=== PATIENT | female | born 1945 | race Caucasian/White ===

== ENCOUNTER 2018-02-10 05:39 | Inpatient (IN) | payer MEDICARE, BC ==
[~2018-02-10 05:39] MED LIST: Acetaminophen 500 MG Tab PO ONE; Scopolamine 1.5 MG Transdermal Patch TRDERM ONE
[2018-02-10] MEDS: Dextrose 5%-Lactated Ringers 1,000 ML IV SCH ×3 (06:06→20:48)
[2018-02-10] MEDS ORDERED: Propofol 200 MG/20 ML SDV ONE (07:11)
[2018-02-10] MEDS ORDERED: Ondansetron 4 MG/2 ML SDV ONE (07:11)
[2018-02-10] MEDS ORDERED: Succinylcholine 200 MG/10 ML MDV ONE (07:11)
[2018-02-10] MEDS ORDERED: Neostigmine Methylsulfate 1 MG/ML 5 ML Syringe ONE (07:11)
[2018-02-10] MEDS ORDERED: Rocuronium 50 MG/5 ML Vial ONE (07:11)
[2018-02-10] MEDS ORDERED: Glycopyrrolate 0.2 MG/ML 5 ML MDV ONE (07:11)
[2018-02-10] MEDS ORDERED: Dexamethasone 4 MG/ML SDV ONE (07:11)
[2018-02-10] MEDS ORDERED: fentaNYL 250 MCG/5 ML SDV ONE (07:12)
[2018-02-10] MEDS ORDERED: cefOXitin 2 GM in Sodium Chloride 0.9% 50 ML IV ONE (07:15)
[2018-02-10] MEDS ORDERED: Ketamine 500 MG/5 ML MDV IV SCH (07:30)
[2018-02-10] MEDS ORDERED: Ropivacaine 36 ML, Dexamethasone 8 MG, EPINEPHrine 0.4 MG, Sodium Chloride 0.9% 41.6 ML NERVRT SCH ×4 (07:30)
[2018-02-10] MEDS ORDERED: Naloxone 0.4 MG/ML SDV IV PRN (09:39)
[2018-02-10] MEDS ORDERED: HYDROmorphone/Normal Saline 15 MG/30 ML PCA IV PRN (09:39)
[2018-02-10] MEDS: Pantoprazole 40 MG Vial IV SCH (12:23)
[2018-02-10] MEDS: Ondansetron 4 MG/2 ML SDV IVPUSH PRN ×2 (12:42→16:25)
[2018-02-10] MEDS: cefOXitin 2 GM in Sodium Chloride 0.9% 50 ML IV SCH ×2 (13:35→20:51)
[2018-02-10] MEDS: Metoclopramide 10 MG/2 ML SDV IVPUSH SCH (17:40)
[2018-02-10] MEDS: Acetaminophen/HYDROcodone 325-5 MG Tab PO PRN (17:42)
[2018-02-10] MEDS: Simvastatin 20 MG Tab PO SCH (20:53)
[2018-02-11] MEDS: Acetaminophen/HYDROcodone 325-5 MG Tab PO PRN ×6 (00:03→18:54)
[2018-02-11] MEDS: Metoclopramide 10 MG/2 ML SDV IVPUSH SCH ×5 (00:04→22:56)
[2018-02-11] MEDS: cefOXitin 2 GM in Sodium Chloride 0.9% 50 ML IV SCH ×4 (02:41→19:32)
[2018-02-11] MEDS: Dextrose 5%-Lactated Ringers 1,000 ML IV SCH ×2 (07:43→18:34)
[2018-02-11] MEDS: Aspirin 81 MG Tab.EC PO SCH (08:51)
[2018-02-11] MEDS: Clopidogrel 75 MG Tab PO SCH (08:51)
[2018-02-11] MEDS: Pantoprazole 40 MG Vial IV SCH (11:05)
--- NOTE | 2018-02-11 15:55 | PCM.SURGPN ---
- General Info Date of Service: 02/11/18 Date of Surgery/Procedure: 02/10/18 POD#: 1 Functional Status: Reports: Pain Controlled, Ambulating, Urinating - Review of Systems General: Reports: Fever HEENT: Reports: No Symptoms Pulmonary: Reports: No Symptoms Cardiovascular: Reports: No Symptoms Gastrointestinal: Reports: Abdominal Pain, Nausea (Pt states that her pain is a 2-3/10 with the oral norco. Pt states pain is along whole lower abdomen. Pt states reglan and zofran helped her nausea. ) - Patient Data Vitals - Most Recent: Last Vital Signs Temp 37.3 C 02/11/18 15:00 Pulse 83 02/11/18 15:00 Resp 16 02/11/18 15:00 BP 107/62 02/11/18 15:00 Pulse Ox 95 02/11/18 15:00 Weight - Most Recent: 63.049 kg I&O - Last 24 Hours: Intake & Output 02/11/18 02/11/18 02/11/18 06:59 14:59 22:59 Intake Total 820 220 Output Total 20 1000 Balance 800 -780 Lab Results Last 24 Hrs: Laboratory Results - last 24 hr 02/11/18 02/11/18 Range/Units 04:00 04:00 WBC 17.1 H (4.5-11.0) K/uL RBC 4.05 (3.30-5.50) M/uL Hgb 12.1 (12.0-15.0) g/dL Hct 37.2 (36.0-48.0) % MCV 92 (80-98) fL MCH 30 (27-31) pg MCHC 33 (32-36) % Plt Count 232 (150-400) K/uL Neut % (Auto) 84 H (36-66) % Lymph % (Auto) 6 L (24-44) % [place] % (Auto) 10 H (2-6) % Eos % (Auto) 0 L (2-4) % Baso % (Auto) 0 (0-1) % Total Bilirubin 0.5 (0.2-1.0) mg/dL Alkaline Phosphatase 71 (46-116) U/L Med Orders - Current: Current Medications Hydrocodone Bitart/Acetaminophen ([place] 325-5 Mg) 1 tab PO Q3H PRN PRN Reason: PAIN Last Admin: 02/11/18 12:32 Dose: 1 tab Aspirin (Halfprin) 81 mg PO DAILY [facility] Last Admin: 02/11/18 08:51 Dose: 81 mg Clopidogrel Bisulfate (Plavix) 75 mg PO DAILY [facility] Last Admin: 02/11/18 08:51 Dose: 75 mg Dextrose/Lactated Ringer's (Dextrose 5%-Lactated Ringers) 1,000 mls @ 100 mls/ hr IV ASDIRECTED [facility] Last Admin: 02/11/18 07:43 Dose: 100 mls/hr Cefoxitin Sodium 2 gm/ Sodium (Chloride) 50 mls @ 100 mls/hr IV Q6H [facility] Last Admin: 02/11/18 13:19 Dose: 100 mls/hr Metoclopramide HCl (Reglan) 10 mg IVPUSH Q6H [facility] Last Admin: 02/11/18 11:05 Dose: 10 mg Naloxone HCl (Narcan) 0.1 mg IV ASDIRECTED PRN PRN Reason: decreased respiratory rate Ondansetron HCl (Zofran) 4 mg IVPUSH Q4H PRN PRN Reason: NAUSEA Last Admin: 02/10/18 16:25 Dose: 4 mg Pantoprazole Sodium (Protonix Iv) 40 mg IV Q24H [facility] Last Admin: 02/11/18 11:05 Dose: 40 mg Simvastatin (Zocor) 40 mg PO BEDTIME [facility] Last Admin: 02/10/18 20:53 Dose: 40 mg Discontinued Medications Acetaminophen (Tylenol Extra Strength) 1,000 mg PO ONETIME ONE Stop: 02/10/18 05:31 Last Admin: 02/10/18 06:06 Dose: 1,000 mg Ropivacaine 36 ml/Dexamethasone 8 mg/Epinephrine HCl 0.4 mg/ Sodium Chloride 41.6 ml 0 ml NERVRT ASDIRECTED [facility] Last Admin: 02/10/18 07:56 Dose: 80 syringe Dexamethasone (Dexamethasone) Confirm Administered Dose 4 mg .ROUTE .STK-MED ONE Stop: 02/10/18 07:12 Fentanyl (Sublimaze) Confirm Administered Dose 250 mcg .ROUTE .STK-MED ONE Stop: 02/10/18 07:13 Glycopyrrolate (Robinul) Confirm Administered Dose 1 mg .ROUTE .STK-MED ONE Stop: 02/10/18 07:12 Hydromorphone HCl (Dilaudid Decatizer 15 Mg In Ns 30 Ml) 0 mg IV ASDIRECTED PRN; Protocol PRN Reason: PATIENT RELATIONS REPRESENTATIVE PAIN CONTROL Last Admin: 02/10/18 12:42 Dose: 15 mg Cefoxitin Sodium 2 gm/ Sodium (Chloride) 50 mls @ 100 mls/hr IV ONETIME ONE Stop: 02/10/18 07:44 Last Admin: 02/10/18 07:33 Dose: 100 mls/hr Ketamine HCl (Ketalar) 30 mg IV ASDIRECTED JESS Neostigmine Methylsulfate (Neostigmine) Confirm Administered Dose 5 mg .ROUTE .STK-MED ONE Stop: 02/10/18 07:12 Ondansetron HCl (Zofran) Confirm Administered Dose 4 mg .ROUTE .STK-MED ONE Stop: 02/10/18 07:12 Propofol (Diprivan 20 Ml) Confirm Administered Dose 200 mg .ROUTE .STK-MED ONE Stop: 02/10/18 07:12 Rocuronium [place] (Zemuron) Confirm Administered Dose 50 mg .ROUTE .STK-MED ONE Stop: 02/10/18 07:12 Scopolamine (Transderm-Scop) 1.5 mg TRDERM ONETIME ONE Stop: 02/10/18 05:31 Last Admin: 02/10/18 06:05 Dose: 1.5 mg Succinylcholine Chloride (Quelicin) Confirm Administered Dose 200 mg .ROUTE .STK -MED ONE Stop: 02/10/18 07:12 - Exam General: Alert, Oriented, Cooperative, No Acute Distress Lungs: Clear to Auscultation, Normal Respiratory Effort Cardiovascular: Regular Rate, Regular Rhythm, No Murmurs GI/Abdominal Exam: Tender Skin: Warm, Dry Psy/Mental Status: Alert, Normal Affect, Normal Mood (Pt is AO X3 and pleasant. Pt is up sitting in her chair.) - Problem List & Annotations (1) Status post laparoscopic appendectomy SNOMED Code(s): 263422255, 82946536, 267758567, 410784596 Code(s): Z90.49 - ACQUIRED ABSENCE OF OTHER SPECIFIED PARTS OF DIGESTIVE TRACT Status: Acute Current Visit: Yes (2) Status post laparoscopic cholecystectomy SNOMED Code(s): 185437730, 65472632, 582520283 Code(s): Z90.49 - ACQUIRED ABSENCE OF OTHER SPECIFIED PARTS OF DIGESTIVE TRACT Status: Acute Current Visit: Yes - Problem List Review Problem List Initiated/Reviewed/Updated: Yes - My Orders Last 24 Hours: Active Orders 24 hr Category Date Time Status Aspirin [Halfprin] Med 02/11/18 09:00 Active 81 mg PO DAILY Clopidogrel [Plavix] Med 02/11/18 09:00 Active 75 mg PO DAILY Metoclopramide [Reglan] Med 02/10/18 17:30 Active 10 mg IVPUSH Q6H Simvastatin [Zocor] Med 02/10/18 21:00 Active 40 mg PO BEDTIME Oral Care [OM.PC] BID Oth 02/11/18 10:45 Ordered Oral Care [OM.PC] BID Oth 02/12/18 10:45 Ordered Oral Care [OM.PC] BID Oth 02/13/18 10:45 Ordered Oral Care [OM.PC] BID Oth 02/14/18 10:45 Ordered Oral Care [OM.PC] BID Oth 02/15/18 10:45 Ordered Oral Care [OM.PC] BID Oth 02/16/18 10:45 Ordered Oral Care [OM.PC] BID Oth 02/17/18 10:45 Ordered Oral Care [OM.PC] BID Oth 02/18/18 10:45 Ordered Oral Care [OM.PC] BID Oth 02/19/18 10:45 Ordered Medication Orders Hydrocodone Bitart/Acetaminophen ([place] 325-5 Mg) 1 tab PO Q3H PRN PRN Reason: PAIN Last Admin: 02/11/18 12:32 Dose: 1 tab Admin: 02/11/18 09:31 Dose: 1 tab Admin: 02/11/18 06:27 Dose: 1 tab Admin: 02/11/18 00:03 Dose: 1 tab Admin: 02/10/18 17:42 Dose: 1 tab Aspirin (Halfprin) 81 mg PO DAILY [facility] Last Admin: 02/11/18 08:51 Dose: 81 mg Clopidogrel Bisulfate (Plavix) 75 mg PO DAILY [facility] Last Admin: 02/11/18 08:51 Dose: 75 mg Dextrose/Lactated Ringer's (Dextrose 5%-Lactated Ringers) 1,000 mls @ 100 mls/ hr IV ASDIRECTED [facility] Last Admin: 02/11/18 07:43 Dose: 100 mls/hr Infusion: 02/11/18 06:48 Dose: 100 mls/hr Admin: 02/10/18 20:48 Dose: 100 mls/hr Infusion: 02/10/18 20:48 Dose: 100 mls/hr Admin: 02/10/18 12:27 Dose: 100 mls/hr Infusion: 02/10/18 12:27 Dose: 100 mls/hr Admin: 02/10/18 06:06 Dose: 100 mls/hr Cefoxitin Sodium 2 gm/ Sodium (Chloride) 50 mls @ 100 mls/hr IV Q6H [facility] Last Admin: 02/11/18 13:19 Dose: 100 mls/hr Admin: 02/11/18 07:44 Dose: 100 mls/hr Admin: 02/11/18 02:41 Dose: 100 mls/hr Admin: 02/10/18 20:51 Dose: 100 mls/hr Admin: 02/10/18 13:35 Dose: 100 mls/hr Metoclopramide HCl (Reglan) 10 mg IVPUSH Q6H [facility] Last Admin: 02/11/18 11:05 Dose: 10 mg Admin: 02/11/18 06:08 Dose: 10 mg Admin: 02/11/18 00:04 Dose: 10 mg Admin: 02/10/18 17:40 Dose: 10 mg Naloxone HCl (Narcan) 0.1 mg IV ASDIRECTED PRN PRN Reason: decreased respiratory rate Ondansetron HCl (Zofran) 4 mg IVPUSH Q4H PRN PRN Reason: NAUSEA Last Admin: 02/10/18 16:25 Dose: 4 mg Admin: 02/10/18 12:42 Dose: 4 mg Pantoprazole Sodium (Protonix Iv) 40 mg IV Q24H [facility] Last Admin: 02/11/18 11:05 Dose: 40 mg Admin: 02/10/18 12:23 Dose: 40 mg Simvastatin (Zocor) 40 mg PO BEDTIME [facility] Last Admin: 02/10/18 20:53 Dose: 40 mg - Assessment Assessment (Free Text/Narrative):: -Abdominal pain -Post op laparoscopic appendectomy -post op laparoscopic cholecystectomy - Plan Plan (Free Text/Narrative):: -continue reglan and zofran as needed for nausea -continue oral norco -Pt may start regular diet -continue to empty drains as needed
[2018-02-11] MEDS ORDERED: Bisacodyl 5 MG Tab PO PRN (21:00)
[2018-02-11] MEDS ORDERED: Docusate Sodium 100 MG Cap PO ONE (21:00)
[2018-02-11] MEDS: Simvastatin 20 MG Tab PO SCH (21:29)
[2018-02-12] MEDS: Acetaminophen/HYDROcodone 325-5 MG Tab PO PRN ×3 (00:42→07:37)
[2018-02-12] MEDS: cefOXitin 2 GM in Sodium Chloride 0.9% 50 ML IV SCH ×2 (02:43→08:18)
[2018-02-12] MEDS: Metoclopramide 10 MG/2 ML SDV IVPUSH SCH (05:29)
[2018-02-12] MEDS: Aspirin 81 MG Tab.EC PO SCH (08:24)
[2018-02-12] MEDS: Clopidogrel 75 MG Tab PO SCH (08:24)
[2018-02-12 09:37] VITALS: BP 119/79
--- NOTE | 2018-02-12 14:06 | PCM.DCSUM1 ---
Discharge Summary - Hospital Course HPI Initial Comments: Pt admitted 02/10/2018 for laparoscopic cholecystectomy due to abdominal pain Brief History: Pt was admitted 02/10/2018 for a laparoscopic cholecystectomy for abdominal pain. She was having low abdominal pain as well and also underwent an appendectomy during her surgery. Pt has been doing well during her hospital stay with us. Post op day 1 pt had some nausea that was helped by zofran and reglan. Pt has been up ambulating and has good oral intake on a regular diet. Pt has not needed the zofran and reglan again since post op day 1. Pts FREEDOM tubes put out 80 mls each (160 ml total) yesterday the fluid was slightly bloody but almost serosanguineous fluid. Pt still has some diffuse low abdominal pain but states this is well controlled with one norco every three hours. will remove drains today and pt can shower and be discharged. - Discharge Data Discharge Date: 02/12/18 Discharge Disposition: Home, Self-Care 01 Condition: Good - Discharge Diagnosis/Problem(s) (1) Status post laparoscopic appendectomy SNOMED Code(s): 270342824, 45222247, 379652395, 643971789 ICD Code: Z90.49 - ACQUIRED ABSENCE OF OTHER SPECIFIED PARTS OF DIGESTIVE TRACT Status: Acute (2) Status post laparoscopic cholecystectomy SNOMED Code(s): 571713239, 91660965, 492293052 ICD Code: Z90.49 - ACQUIRED ABSENCE OF OTHER SPECIFIED PARTS OF DIGESTIVE TRACT Status: Acute - Patient Summary/Data Consults: Consultations 02/10/18 10:38 Respiratory Care Assess and Treatment [CONS] Routine Comment: Physician Instructions: - Patient Instructions Diet: Usual Diet as Tolerated, Drink 8-10+ Glasses/Day Activity: No Lifting Over 10 Pounds Driving: Do Not Drive Showering/Bathing: May Shower Wound/Incision Care: Keep Operative Site/Wound Site Clean and Dry Notify Provider of: Fever, Increased Pain, Nausea and/or Vomiting Other/Special Instructions: Use incentive inspirometer 10 times every hour while awake for 1 weeks. - Discharge Plan Prescriptions/Med Rec: Acetaminophen/HYDROcodone [[place] 325-5 MG] 1 tab PO Q3H PRN #40 tablet PRN Reason: PAIN Magnesium Hydroxide [Milk of Magnesia] 30 ml PO DAILY PRN #2 ml PRN Reason: Constipation Ondansetron [Zofran ODT] 4 mg PO Q6H PRN #30 tab.dis PRN Reason: Nausea Home Medications: Home Meds Aspirin [Adult Low Dose Aspirin EC] 81 mg PO DAILY 12/15/13 [History] Cholecalciferol (Vitamin D3) [Vitamin D3] 2,000 unit PO DAILY 12/15/13 [History] Clopidogrel [Plavix] 75 mg PO DAILY 06/18/16 [History] Cranberry Extract [Theracran] 4,200 mg PO DAILY 06/18/16 [History] Nitroglycerin [Nitrostat] 0.4 mg SL ASDIRECTED PRN 06/18/16 [History] Tumeric 538 mg PO DAILY 06/18/16 [History] Ubidecarenone [Co Q-10] 400 mg PO DAILY 06/18/16 [History] Acetaminophen/HYDROcodone [[place] 325-5 MG] 1 tab PO Q3H PRN #40 tablet 02/12/18 [Rx] Magnesium Hydroxide [Milk of Magnesia] 30 ml PO DAILY PRN #2 ml 02/12/18 [Rx] Ondansetron [Zofran ODT] 4 mg PO Q6H PRN #30 tab.dis 02/12/18 [Rx] Patient Handouts: Preventing Constipation After Surgery Referrals: Alexandra Onofre PA-C [Physician Marketing Ambassador] - 02/20/18 10:00 am - General Info Functional Status: Reports: Pain Controlled, Tolerating Diet, Ambulating, Urinating - Review of Systems General: Reports: No Symptoms HEENT: Reports: No Symptoms Pulmonary: Reports: No Symptoms, Sputum Gastrointestinal: Reports: Abdominal Pain (pt still has some diffuse low abdominal pain. tender with palpation) Skin: Reports: No Symptoms - Patient Data Vitals - Most Recent: Last Vital Signs Temp 37.3 C 02/12/18 09:34 Pulse 83 02/12/18 09:34 Resp 16 02/12/18 09:34 BP 119/79 02/12/18 09:34 Pulse Ox 96 02/12/18 09:34 Weight - Most Recent: 63.049 kg I&O - Last 24 hours: Intake & Output 02/11/18 02/12/18 02/12/18 22:59 06:59 14:59 Intake Total 1388 1460 488 Output Total 1650 870 865 Balance -262 590 -377 Med Orders - Current: Current Medications Discontinued Medications Acetaminophen (Tylenol Extra Strength) 1,000 mg PO ONETIME ONE Stop: 02/10/18 05:31 Last Admin: 02/10/18 06:06 Dose: 1,000 mg Hydrocodone Bitart/Acetaminophen ([place] 325-5 Mg) 1 tab PO Q3H PRN PRN Reason: PAIN Last Admin: 02/12/18 07:37 Dose: 1 tab Aspirin (Halfprin) 81 mg PO DAILY [facility] Last Admin: 02/12/18 08:24 Dose: 81 mg Bisacodyl (Dulcolax) 10 mg PO BID PRN PRN Reason: Constipation Clopidogrel Bisulfate (Plavix) 75 mg PO DAILY [facility] Last Admin: 02/12/18 08:24 Dose: 75 mg Ropivacaine 36 ml/Dexamethasone 8 mg/Epinephrine HCl 0.4 mg/ Sodium Chloride 41.6 ml 0 ml NERVRT ASDIRECTED [facility] Last Admin: 02/10/18 07:56 Dose: 80 syringe Dexamethasone (Dexamethasone) Confirm Administered Dose 4 mg .ROUTE .STK-MED ONE Stop: 02/10/18 07:12 Docusate Sodium (Colace) 200 mg PO ONETIME ONE Stop: 02/11/18 21:01 Last Admin: 02/11/18 21:29 Dose: 200 mg Fentanyl (Sublimaze) Confirm Administered Dose 250 mcg .ROUTE .STK-MED ONE Stop: 02/10/18 07:13 Glycopyrrolate (Robinul) Confirm Administered Dose 1 mg .ROUTE .STK-MED ONE Stop: 02/10/18 07:12 Hydromorphone HCl (Dilaudid Cryptographic Technician 15 Mg In Ns 30 Ml) 0 mg IV ASDIRECTED PRN; Protocol PRN Reason: OPERATIONS STAFF SPECIALIST SECURITY PAIN CONTROL Last Admin: 02/10/18 12:42 Dose: 15 mg Cefoxitin Sodium 2 gm/ Sodium (Chloride) 50 mls @ 100 mls/hr IV ONETIME ONE Stop: 02/10/18 07:44 Last Admin: 02/10/18 07:33 Dose: 100 mls/hr Dextrose/Lactated Ringer's (Dextrose 5%-Lactated Ringers) 1,000 mls @ 100 mls/ hr IV ASDIRECTED [facility] Last Admin: 02/11/18 18:34 Dose: 100 mls/hr Cefoxitin Sodium 2 gm/ Sodium (Chloride) 50 mls @ 100 mls/hr IV Q6H [facility] Last Admin: 02/12/18 08:18 Dose: 100 mls/hr Ketamine HCl (Ketalar) 30 mg IV ASDIRECTED JESS Metoclopramide HCl (Reglan) 10 mg IVPUSH Q6H [facility] Last Admin: 02/12/18 05:29 Dose: Not Given Naloxone HCl (Narcan) 0.1 mg IV ASDIRECTED PRN PRN Reason: decreased respiratory rate Neostigmine Methylsulfate (Neostigmine) Confirm Administered Dose 5 mg .ROUTE .STK-MED ONE Stop: 02/10/18 07:12 Ondansetron HCl (Zofran) Confirm Administered Dose 4 mg .ROUTE .STK-MED ONE Stop: 02/10/18 07:12 Ondansetron HCl (Zofran) 4 mg IVPUSH Q4H PRN PRN Reason: NAUSEA Last Admin: 02/10/18 16:25 Dose: 4 mg Pantoprazole Sodium (Protonix Iv) 40 mg IV Q24H [facility] Last Admin: 02/11/18 11:05 Dose: 40 mg Propofol (Diprivan 20 Ml) Confirm Administered Dose 200 mg .ROUTE .STK-MED ONE Stop: 02/10/18 07:12 Rocuronium [place] (Zemuron) Confirm Administered Dose 50 mg .ROUTE .STK-MED ONE Stop: 02/10/18 07:12 Scopolamine (Transderm-Scop) 1.5 mg TRDERM ONETIME ONE Stop: 02/10/18 05:31 Last Admin: 02/10/18 06:05 Dose: 1.5 mg Simvastatin (Zocor) 40 mg PO BEDTIME [facility] Last Admin: 02/11/18 21:29 Dose: 40 mg Succinylcholine Chloride (Quelicin) Confirm Administered Dose 200 mg .ROUTE .STK -MED ONE Stop: 02/10/18 07:12 - Exam General: Reports: Alert, Oriented, Cooperative, No Acute Distress HEENT: Reports: Pupils Equal, EOMI Lungs: Reports: Clear to Auscultation, Normal Respiratory Effort Cardiovascular: Reports: Regular Rate, No Murmurs GI/Abdominal Exam: Soft, Tender Skin: Reports: Warm, Dry Wound/Incisions: Reports: Healing Well, Dressing Dry and Intact, No Drainage Psy/Mental Status: Reports: Alert, Normal Affect, Normal Mood (Pt is AO x3 and laying down in bed. incisions are healing well with no erythema or drainage, fluid in FREEDOM looks almost serosanguineous. Pt has some tenderness with palpation but abdomen is soft.) Discharge Operative/Procedures - Procedures Performed Operations: laparoscopic cholecystectomy and appendectomy
--- NOTE | 2018-02-16 13:14 | OR ---
DATE OF PROCEDURE: 02/10/2018 PREOPERATIVE DIAGNOSES: 1. Chronic cholecystitis and cholelithiasis. 2. Right lower quadrant pain. POSTOPERATIVE DIAGNOSES: 1. Chronic cholecystitis and cholelithiasis. 2. 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 OPERATIVE PROCEDURES: Diagnostic laparoscopy with: 1. Cholecystectomy (92507). 2. Appendectomy (64313). ANESTHESIA: General. HEALTH PROMOTION MANAGER: AICHA Gonzalez. INDICATIONS FOR PROCEDURE: This is a 72-year-old presenting with abdominal pain. For the most part, the pain is located across the lower half of the abdomen and by history is somewhat suggestive of being somewhat of a functional-type pain typical for something like irritable bowel syndrome. She does have her focus of the pain in the right lower quadrant as well as some upper abdominal pain and as a part of workup, the patient underwent an ultrasound which showed cholelithiasis and a distinctly positive ultrasound, Ding's sign, i.e., the gallbladder was quite tender. The plan is to proceed with a laparoscopic cholecystectomy. We will also evaluate the pelvis and lower abdomen on the right side to the extent possible. The patient does have a long midline incision and we would expect to be quite a bit in the way of adhesions in that area, so visualization laparoscopically may not be 100% conclusive in terms of the findings. The patient is aware of this and otherwise potential risks of the procedure including bleeding, infection, injury to underlying viscera, problems with stones migrating into the common bile duct causing a need for additional interventions for correction were all gone over and the patient wishes to proceed. DETAILS OF PROCEDURE: The patient was taken to the operating room, after general endotracheal anesthesia was induced, the abdomen was prepped and draped. In the right lateral abdomen, a transverse incision was made. The peritoneal cavity entered under direct vision with an Optiview trocar and inflated to 15 mmHg with CO2. Laparoscope was reinserted. No underlying trocar insertion site injuries were seen. The patient was noted to have a long area of adhesions between the omentum and small bowel and the midline incision extending from the epigastrium down to somewhat below the umbilicus. The area somewhat below the umbilicus was free of adhesions, so the flexible laparoscope was able to be manipulated towards the left side and a mid abdominal transversus abdominis plane block was placed on the left side with good visualization of the needle at the correct level and the right side was also able to be placed in a similar manner. Following this, now 12-mm epigastric trocar was placed. This was placed towards the area of the gallbladder avoiding the midline adhesions and eventually 2 additional 5-mm trocars were placed in the right abdomen. Attention was initially taken to the cholecystectomy, the gallbladder as expected was somewhat edematous and almost had a subacute inflammatory appearance. This was retracted anteriorly and laterally and dissection began on the gallbladder with Harmonic scalpel, continued around the gallbladder neck and cystic duct junction. Once that area was well delineated as well as was the adjacent cystic artery, both structures were clipped 3 times proximally and once distally and divided. The gallbladder dissected off the gallbladder bed using Harmonic scalpel and was noted to contain a multitude of small black stones within it. The area above the cholecystectomy was inspected. No bleeding or bile leaks were seen. Attention was then taken to evaluation of the pelvis. 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 There were no areas of bowel inflammation located in that area. As one identified the base of the appendix as we came off the cecum, this appeared to be quite fixed to the retroperitoneum and this fixation appeared to be somewhat pathologic in terms of the amount of scarring around it consistent with possible previous appendicitis, which had gone otherwise untreated. The appendix was then divided flush with the cecum with a ROBERT rayo load and using Harmonic scalpel dissection, the appendix was gradually divided away from the mesoappendix as it was dissected out of the retroperitoneum and delivered from the field. At that point, no further problems were noted. The appendiceal stump as well as mesoappendix was reinforced with some fibrin sealant and no other problems were noted in the abdomen at this point. Fabrizio-Muñoz drain was taken out of the right upper quadrant trocar site, also placed adjacent to the gallbladder bed as there was quite a bit of edema in that area, and the 12-mm trocars were then removed and the fascia was sequentially closed with 0 Vicryl stitch and the skin at the incisions with 4-0 Vicryl skin stitch. Dressing was applied. The patient was taken to the recovery room in satisfactory condition. There were no evident complications. John Lambert MD /[id number]
== END 2018-02-12 10:46 | disposition home or self-care (01) | DRG 419 ==
LOC: JP.SDSSCHI 05:39 → JP.SDS 05:39 → EDSTATUS 09:30 → JP.MS 09:30
PROVIDERS: ADMIT Surgery; ATTEND Surgery
PROC: 0FT44ZZ Resection of Gallbladder, Percutaneous Endoscopic Approach (ICD-10-PCS; principal; 2018-02-10)
PROC: 0DTJ4ZZ Resection of Appendix, Percutaneous Endoscopic Approach (ICD-10-PCS; 2018-02-10)
PROC: 3E0T3BZ Introduction of Anesthetic Agent into Peripheral Nerves and Plexi, Percutaneous Approach (ICD-10-PCS; 2018-02-10)
DX: K80.10 Calculus of gallbladder with chronic cholecystitis without obstruction (principal); K38.8 Other specified diseases of appendix; I25.10 Atherosclerotic heart disease of native coronary artery without angina pectoris; K21.9 Gastro-esophageal reflux disease without esophagitis; E78.2 Mixed hyperlipidemia; G47.33 Obstructive sleep apnea (adult) (pediatric); M81.0 Age-related osteoporosis without current pathological fracture; I34.1 Nonrheumatic mitral (valve) prolapse; R11.0 Nausea; Z79.02 Long term (current) use of antithrombotics/antiplatelets; Z79.82 Long term (current) use of aspirin; Z90.710 Acquired absence of both cervix and uterus; Z88.2 Allergy status to sulfonamides; Z88.8 Allergy status to other drugs, medicaments and biological substances; Z95.5 Presence of coronary angioplasty implant and graft; Z88.1 Allergy status to other antibiotic agents; Z91.040 Latex allergy status; Z79.899 Other long term (current) drug therapy
CPT/HCPCS: 36415; 82247; 84075; 85025; 88302; 88304; 94762; A9270-GY; C9113; J0171; J0330; J0694; J1100; J1170; J2405; J2704; J2710; J2765; J2795; J3010; J7042; J7050

== ENCOUNTER 2019-07-03 12:31 | Emergency (ER) | payer MEDICARE, BC ==
[2019-07-03 13:05] VITALS: BP 132/75
--- NOTE | 2019-07-03 13:13 | EDM.PDOC ---
ED HPI GENERAL MEDICAL PROBLEM - General Chief Complaint: Genitourinary Problem Time Seen by Provider: 07/03/19 13:10 Source of Information: Reports: Patient, RN Notes Reviewed History Limitations: Reports: No Limitations - History of Present Illness INITIAL COMMENTS - FREE TEXT/NARRATIVE: 73-year-old female presents emergency department today complaint of abdominal pain, she has a history of chronic abdominal pain with a diagnosis being elusive thus far.. C states over the last 24 hours she feels more weak has abdominal pain low in the pelvic area she is concerned about a urinary tract infection but does not have any urinary tract symptomatology Lower Abdomen Pain Score (Numeric/FACES): 7 - Related Data Allergies Allergy/AdvReac Type Severity Reaction Status Date / Time Latex, Natural Rubber Allergy Rash Verified 07/03/19 12:52 niacin Allergy Cannot Verified 07/03/19 12:52 Remember Sulfa (Sulfonamide Allergy Difficulty Verified 07/03/19 12:52 Antibiotics) Breathing ciprofloxacin AdvReac Nausea Verified 07/03/19 12:52 meperidine HCl [From Demerol] AdvReac Nausea and Verified 07/03/19 12:52 Vomiting nitrofurantoin AdvReac Nausea Verified 07/03/19 12:52 [From Macrobid] nitrofurantoin AdvReac Nausea Verified 07/03/19 12:52 macrocrystalline [From Macrobid] tetracycline [Tetracycline] AdvReac Nausea Verified 07/03/19 12:52 Home Meds: Home Meds Clopidogrel [Plavix] 75 mg PO DAILY 06/18/16 [History] Nitroglycerin [Nitrostat] 0.4 mg SL ASDIRECTED PRN 06/18/16 [History] Tumeric 538 mg PO DAILY 06/18/16 [History] Simvastatin 5 mg PO DAILY 07/03/19 [History] Past Medical History HEENT History: Reports: Impaired Vision Cardiovascular History: Reports: Angina, Arrhythmia, CAD, High Cholesterol, Stents, Other (See Below) Other Cardiovascular History: mitro valve prolaps Respiratory History: Reports: Sleep Apnea Gastrointestinal History: Reports: Colon Polyp, GERD, Hiatal Hernia 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: Musculoskeletal History: Reports: Fracture Other Musculoskeletal History: right knee pain and swellling Neurological History: Reports: Concussion Endocrine/Metabolic History: Reports: Osteoporosis - Past Surgical History Head Surgeries/Procedures: Reports: None HEENT Surgical History: Reports: Other (See Below) Other HEENT Surgeries/Procedures: nasal surgery for sleep apnea Cardiovascular Surgical History: Reports: Coronary Artery Stent Respiratory Surgical History: Reports: None GI Surgical History: Reports: Appendectomy, Cholecystectomy, Colonoscopy, EGD, Other (See Below) Other GI Surgeries/Procedures: abd. surgery for stomach on ride side of body Female Surgical History: Reports: Hysterectomy, Salpingo-Oophorectomy Endocrine Surgical History: Reports: None Neurological Surgical History: Reports: None Musculoskeletal Surgical History: Reports: None Dermatological Surgical History: Reports: None Social & Family History - Tobacco Use Smoking Status *Q: Never Smoker Second Hand Smoke Exposure: No - Caffeine Use Caffeine Use: Reports: Coffee - Recreational Drug Use Recreational Drug Use: No ED ROS GENERAL - Review of Systems Review Of Systems: See Below Constitutional: Reports: Weakness. Denies: Fever, Chills Respiratory: Reports: No Symptoms Cardiovascular: Reports: No Symptoms GI/Abdominal: Reports: Abdominal Pain, Nausea. Denies: Vomiting : Denies: Discharge, Dysuria, Flank Pain, Frequency ED EXAM, GI/ABD - Physical Exam Exam: See Below Exam Limited By: No Limitations General Appearance: Alert, WD/WN, No Apparent Distress Respiratory/Chest: No Respiratory Distress, Lungs Clear, Normal Breath Sounds, No Accessory Muscle Use, Chest Non-Tender Cardiovascular: Regular Rate, Rhythm, No Murmur GI/Abdominal Exam: Normal Bowel Sounds, Soft, Non-Tender, No Distention, No Mass Course - Vital Signs Last Recorded V/S: Last Vital Signs Temp 96.9 F 07/03/19 12:54 Pulse 71 07/03/19 12:54 Resp 16 07/03/19 12:54 BP 132/75 07/03/19 12:54 Pulse Ox 96 07/03/19 12:54 - Orders/Labs/Meds Orders: Active Orders 24 hr Category Date Time Status CULTURE URINE [RM] Urgent Lab 07/03/19 13:57 Ordered cefTRIAXone 1 GM,Lidocaine 1% 2.1 ML Med 07/03/19 14:04 Ordered cefTRIAXone [Rocephin] 1 gm Lidocaine 1% [Xylocaine-MPF 1%] 2.1 ml IM ONETIME Medication Orders Ceftriaxone Sodium 1 gm/ (Lidocaine HCl 2.1 ml) 0 gm IM ONETIME ONE Stop: 07/03/19 14:05 Labs: Laboratory Tests 07/03/19 07/03/19 07/03/19 Range/Units 13:13 13:20 13:20 WBC 7.4 (4.5-11.0) K/uL RBC 4.28 (3.30-5.50) M/uL Hgb 12.9 (12.0-15.0) g/dL Hct 40.5 (36.0-48.0) % MCV 95 (80-98) fL MCH 30 (27-31) pg MCHC 32 (32-36) % Plt Count 274 (150-400) K/uL Neut % (Auto) 60 (36-66) % Lymph % (Auto) 24 (24-44) % [place] % (Auto) 12 H (2-6) % Eos % (Auto) 3 (2-4) % Baso % (Auto) 1 (0-1) % Sodium 140 (140-148) mmol/L Potassium 3.5 L (3.6-5.2) mmol/L Chloride 103 (100-108) mmol/L Carbon Dioxide 28 (21-32) mmol/L Anion Gap 12.5 (5.0-14.0) mmol/L BUN 16 (7-18) mg/dL Creatinine 0.8 (0.6-1.0) mg/dL Est Cr Clr Drug Dosing 54.89 mL/min Estimated GFR (MDRD) > 60 (>60) Glucose 97 (74-106) mg/dL Lactic Acid (0.4-2.0) mmol/L Calcium 8.8 (8.5-10.1) mg/dL Total Bilirubin 0.4 (0.2-1.0) mg/dL AST 20 (15-37) U/L ALT 24 (12-78) U/L Alkaline Phosphatase 111 (46-116) U/L Total Protein 6.7 (6.4-8.2) g/dL Albumin 3.5 (3.4-5.0) g/dL Globulin 3.2 (2.3-3.5) g/dL Albumin/Globulin Ratio 1.1 L (1.2-2.2) Urine Color Yellow (YELLOW) Urine Appearance Cloudy A (CLEAR) Urine pH 7.0 (5.0-8.0) Ur Specific [place] 1.025 (1.008-1.030) Urine Protein Negative (NEGATIVE) mg/dL Urine Glucose (UA) Normal (NEGATIVE) mg/dL Urine Ketones Negative (NEGATIVE) mg/dL Urine Occult Blood Trace-intact H (NEGATIVE) Urine Nitrite Positive H (NEGATIVE) Urine Bilirubin Negative (NEGATIVE) Urine Urobilinogen 0.2 (0.2-1.0) EU/dL Ur Leukocyte Esterase Negative (NEGATIVE) Urine RBC 0-5 (0-5) Urine WBC 0-5 (0-5) Ur Epithelial Cells Few Amorphous Sediment Few Urine Bacteria Many Urine Mucus Not seen 07/03/19 Range/Units 13:20 WBC (4.5-11.0) K/uL RBC (3.30-5.50) M/uL Hgb (12.0-15.0) g/dL Hct (36.0-48.0) % MCV (80-98) fL MCH (27-31) pg MCHC (32-36) % Plt Count (150-400) K/uL Neut % (Auto) (36-66) % Lymph % (Auto) (24-44) % [place] % (Auto) (2-6) % Eos % (Auto) (2-4) % Baso % (Auto) (0-1) % Sodium (140-148) mmol/L Potassium (3.6-5.2) mmol/L Chloride (100-108) mmol/L Carbon Dioxide (21-32) mmol/L Anion Gap (5.0-14.0) mmol/L BUN (7-18) mg/dL Creatinine (0.6-1.0) mg/dL Est Cr Clr Drug Dosing mL/min Estimated GFR (MDRD) (>60) Glucose (74-106) mg/dL Lactic Acid 1.4 (0.4-2.0) mmol/L Calcium (8.5-10.1) mg/dL Total Bilirubin (0.2-1.0) mg/dL AST (15-37) U/L ALT (12-78) U/L Alkaline Phosphatase (46-116) U/L Total Protein (6.4-8.2) g/dL Albumin (3.4-5.0) g/dL Globulin (2.3-3.5) g/dL Albumin/Globulin Ratio (1.2-2.2) Urine Color (YELLOW) Urine Appearance (CLEAR) Urine pH (5.0-8.0) Ur Specific [place] (1.008-1.030) Urine Protein (NEGATIVE) mg/dL Urine Glucose (UA) (NEGATIVE) mg/dL Urine Ketones (NEGATIVE) mg/dL Urine Occult Blood (NEGATIVE) Urine Nitrite (NEGATIVE) Urine Bilirubin (NEGATIVE) Urine Urobilinogen (0.2-1.0) EU/dL Ur Leukocyte Esterase (NEGATIVE) Urine RBC (0-5) Urine WBC (0-5) Ur Epithelial Cells Amorphous Sediment Urine Bacteria Urine Mucus Meds: Medications Generic Name Dose Route Start Last Admin Trade Name Freq PRN Reason Stop Dose Admin Ceftriaxone Sodium 1 gm/ 0 gm 07/03/19 14:04 Lidocaine HCl 2.1 ml IM 07/03/19 14:05 ONETIME ONE Departure - Departure Time of Disposition: 14:06 Disposition: Home, Self-Care 01 Condition: Fair Clinical Impression: UTI, Urinary tract infectious disease - Discharge Information Referrals: Aaron Sahu MD [Primary Care Provider] - Forms: ED Department Discharge Additional Instructions: Please followup with your primary care provider in 3-5 days if not better, please call return to the emergency department with worsening of symptoms. The urinary culture should be done in 4-5 days to reveal sensitivity to antibiotics - My Orders Last 24 Hours: My Active Orders 07/03/19 13:57 CULTURE URINE [RM] Urgent 07/03/19 14:04 cefTRIAXone 1 GM,Lidocaine 1% 2.1 ML cefTRIAXone [Rocephin] 1 gm Lidocaine 1% [ Xylocaine-MPF 1%] 2.1 ml IM ONETIME - Assessment/Plan Last 24 Hours: My Active Orders 07/03/19 13:57 CULTURE URINE [RM] Urgent 07/03/19 14:04 cefTRIAXone 1 GM,Lidocaine 1% 2.1 ML cefTRIAXone [Rocephin] 1 gm Lidocaine 1% [ Xylocaine-MPF 1%] 2.1 ml IM ONETIME Plan: Assessment Acuity = acute Site and laterality = urinary tract infection Etiology = suspicious for bacterial cause Manifestations = weakness Location of injury = Home Lab values = CBC, CMP, lactic acid out within normal limits urinalysis is positive for nitrates with packed RBCs and many bacteria cultures pending Plan Because of her multiple allergy profile and what has worked well for her in the past like to treat with Rocephin 1 g IM 100 follow-up with her primary care 3- 5 days if no improvement This note was dictated using [employer] recognition software please call with any questions on syntax or grammar.
[2019-07-03] MEDS ORDERED: cefTRIAXone 1 GM, Lidocaine 1% 2.1 ML IM ONE ×2 (14:04)
== END 2019-07-03 14:19 | disposition home or self-care (01) ==
LOC: JP.ED 12:31
DX: N39.0 Urinary tract infection, site not specified (principal); E78.00 Pure hypercholesterolemia, unspecified; I25.10 Atherosclerotic heart disease of native coronary artery without angina pectoris; K21.9 Gastro-esophageal reflux disease without esophagitis; Z79.899 Other long term (current) drug therapy; Z88.1 Allergy status to other antibiotic agents; Z88.8 Allergy status to other drugs, medicaments and biological substances; Z88.2 Allergy status to sulfonamides; Z88.5 Allergy status to narcotic agent
CPT/HCPCS: 36415; 80053; 81001; 83605; 85025; 87086; 87088; 87186; 96372; 99284; J0696; J2001

== ENCOUNTER 2019-07-09 08:22 | Emergency (ER) | payer MEDICARE, BC ==
[2019-07-09] MEDS ORDERED: Sodium Chloride 0.9% 10 ML Syringe FLUSH PRN (08:57)
[2019-07-09] MEDS ORDERED: Ondansetron 4 MG/2 ML SDV IVPUSH ONE (08:58)
[2019-07-09] MEDS ORDERED: fentaNYL 100 MCG/2 ML SDV IVPUSH ONE (08:58)
[2019-07-09] MEDS ORDERED: Lactated Ringers 1,000 ML IV SCH (09:00)
--- NOTE | 2019-07-09 09:03 | EDM.PDOC ---
ED HPI GENERAL MEDICAL PROBLEM - General Chief Complaint: Gastrointestinal Problem Stated Complaint: PAIN IN BACK STOMACH Time Seen by Provider: 07/09/19 08:53 Source of Information: Reports: Patient, Family, Old Records, RN Notes Reviewed History Limitations: Reports: No Limitations - History of Present Illness INITIAL COMMENTS - FREE TEXT/NARRATIVE: 73-year-old female presents to the emergency department today complaint of abdominal pain and loose watery stools. She was recently treated for urinary tract infection 6 days prior with 1 g of Rocephin she does have multiple antibiotic allergies, urine culture grew out Citrobacter freundii sensitive to cephalosporins.. She does have a history of chronic abdominal pain for the last 2 years however over the last 24 hours it has gotten significantly worse loose watery stools and nausea no fevers Flank Pain Score (Numeric/FACES): 10 - Related Data Allergies Allergy/AdvReac Type Severity Reaction Status Date / Time Latex, Natural Rubber Allergy Rash Verified 07/03/19 12:52 niacin Allergy Cannot Verified 07/03/19 12:52 Remember Sulfa (Sulfonamide Allergy Difficulty Verified 07/03/19 12:52 Antibiotics) Breathing ciprofloxacin AdvReac Nausea Verified 07/03/19 12:52 meperidine HCl [From Demerol] AdvReac Nausea and Verified 07/03/19 12:52 Vomiting nitrofurantoin AdvReac Nausea Verified 07/03/19 12:52 [From Macrobid] nitrofurantoin AdvReac Nausea Verified 07/03/19 12:52 macrocrystalline [From Macrobid] tetracycline [Tetracycline] AdvReac Nausea Verified 07/03/19 12:52 Home Meds: Home Meds Clopidogrel [Plavix] 75 mg PO DAILY 06/18/16 [History] Nitroglycerin [Nitrostat] 0.4 mg SL ASDIRECTED PRN 06/18/16 [History] Tumeric 538 mg PO DAILY 06/18/16 [History] Simvastatin 5 mg PO DAILY 07/03/19 [History] Hydrocodone/Acetaminophen [Hydrocodon-Acetaminophen 5-325] 1 each PO TID PRN # 10 tablet 07/09/19 [Rx] Vancomycin HCl 125 mg PO QID #40 capsule 07/09/19 [Rx] Past Medical History HEENT History: Reports: Impaired Vision Cardiovascular History: Reports: Angina, Arrhythmia, CAD, High Cholesterol, Stents, Other (See Below) Other Cardiovascular History: mitro valve prolaps Respiratory History: Reports: Sleep Apnea Gastrointestinal History: Reports: Colon Polyp, GERD, Hiatal Hernia 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: Musculoskeletal History: Reports: Fracture Other Musculoskeletal History: right knee pain and swellling Neurological History: Reports: Concussion Endocrine/Metabolic History: Reports: Osteoporosis Hematologic History: Reports: None Immunologic History: Reports: None Oncologic (Cancer) History: Reports: None Dermatologic History: Reports: None - Infectious Disease History Infectious Disease History: Reports: Chicken Pox, Measles, Mumps - Past Surgical History Head Surgeries/Procedures: Reports: None HEENT Surgical History: Reports: Other (See Below) Other HEENT Surgeries/Procedures: nasal surgery for sleep apnea Cardiovascular Surgical History: Reports: Coronary Artery Stent Respiratory Surgical History: Reports: None GI Surgical History: Reports: Appendectomy, Cholecystectomy, Colonoscopy, EGD, Other (See Below) Other GI Surgeries/Procedures: abd. surgery for stomach on ride side of body Female Surgical History: Reports: Hysterectomy, Salpingo-Oophorectomy Endocrine Surgical History: Reports: None Neurological Surgical History: Reports: None Musculoskeletal Surgical History: Reports: None Dermatological Surgical History: Reports: None Social & Family History - Tobacco Use Smoking Status *Q: Never Smoker - Caffeine Use Caffeine Use: Reports: Coffee - Recreational Drug Use Recreational Drug Use: No ED ROS GENERAL - Review of Systems Review Of Systems: See Below Constitutional: Denies: Fever, Chills HEENT: Reports: No Symptoms Respiratory: Reports: No Symptoms Cardiovascular: Reports: No Symptoms GI/Abdominal: Reports: Abdominal Pain, Diarrhea, Nausea : Reports: No Symptoms ED EXAM, GI/ABD - Physical Exam Exam: See Below Exam Limited By: No Limitations General Appearance: Alert, Mild Distress Respiratory/Chest: No Respiratory Distress, Lungs Clear, Normal Breath Sounds, No Accessory Muscle Use, Chest Non-Tender Cardiovascular: Regular Rate, Rhythm, No Murmur GI/Abdominal Exam: Soft, Non-Tender Course - Vital Signs Last Recorded V/S: Last Vital Signs Temp 100 F 07/09/19 10:42 Pulse 91 07/09/19 10:42 Resp 24 H 07/09/19 08:32 BP 123/52 L 07/09/19 10:42 Pulse Ox 97 07/09/19 08:32 - Orders/Labs/Meds Orders: Active Orders 24 hr Category Date Time Status Peripheral IV Care [RC] . DIRECTED Care 07/09/19 08:57 Active Lactated Ringers [Ringers, Lactated] 1,000 ml Med 07/09/19 09:00 Active IV ASDIRECTED Sodium Chloride 0.9% [Saline Flush] Med 07/09/19 08:57 Active 10 ml FLUSH ASDIRECTED PRN Isolation [COMM] Stat Oth 07/09/19 08:58 Ordered Peripheral IV Insertion Adult [OM.PC] Urgent Oth 07/09/19 08:57 Ordered Medication Orders Lactated Ringer's (Ringers, Lactated) 1,000 mls @ 999 mls/hr IV ASDIRECTED JESS Last Admin: 07/09/19 09:12 Dose: 999 mls/hr Sodium Chloride (Saline Flush) 10 ml FLUSH ASDIRECTED PRN PRN Reason: Keep Vein Open Last Admin: 07/09/19 09:12 Dose: 10 ml Labs: Laboratory Tests 07/09/19 07/09/19 07/09/19 Range/Units 09:07 09:07 09:07 WBC 18.4 H (4.5-11.0) K/uL RBC 4.68 (3.30-5.50) M/uL Hgb 14.3 (12.0-15.0) g/dL Hct 43.6 (36.0-48.0) % MCV 93 (80-98) fL MCH 31 (27-31) pg MCHC 33 (32-36) % Plt Count 263 (150-400) K/uL Neut % (Auto) 89 H (36-66) % Lymph % (Auto) 6 L (24-44) % [place] % (Auto) 4 (2-6) % Eos % (Auto) 1 L (2-4) % Baso % (Auto) 0 (0-1) % Sodium 140 (140-148) mmol/L Potassium 3.4 L (3.6-5.2) mmol/L Chloride 103 (100-108) mmol/L Carbon Dioxide 22 (21-32) mmol/L Anion Gap 18.4 H (5.0-14.0) mmol/L BUN 14 (7-18) mg/dL Creatinine 1.0 (0.6-1.0) mg/dL Est Cr Clr Drug Dosing 42.06 mL/min Estimated GFR (MDRD) 55 L (>60) Glucose 112 H (74-106) mg/dL Lactic Acid 4.6 H (0.4-2.0) mmol/L Calcium 8.7 (8.5-10.1) mg/dL Total Bilirubin 0.8 D (0.2-1.0) mg/dL AST 33 (15-37) U/L ALT 29 (12-78) U/L Alkaline Phosphatase 120 H (46-116) U/L Troponin I (0.000-0.056) ng/mL Total Protein 7.4 (6.4-8.2) g/dL Albumin 3.9 (3.4-5.0) g/dL Globulin 3.5 (2.3-3.5) g/dL Albumin/Globulin Ratio 1.1 L (1.2-2.2) Lipase 191 (73-393) U/L Urine Color (YELLOW) Urine Appearance (CLEAR) Urine pH (5.0-8.0) Ur Specific [place] (1.008-1.030) Urine Protein (NEGATIVE) mg/dL Urine Glucose (UA) (NEGATIVE) mg/dL Urine Ketones (NEGATIVE) mg/dL Urine Occult Blood (NEGATIVE) Urine Nitrite (NEGATIVE) Urine Bilirubin (NEGATIVE) Urine Urobilinogen (0.2-1.0) EU/dL Ur Leukocyte Esterase (NEGATIVE) Urine RBC (0-5) Urine WBC (0-5) Ur Epithelial Cells Amorphous Sediment Urine Bacteria Urine Mucus 07/09/19 07/09/19 Range/Units 09:07 10:15 WBC (4.5-11.0) K/uL RBC (3.30-5.50) M/uL Hgb (12.0-15.0) g/dL Hct (36.0-48.0) % MCV (80-98) fL MCH (27-31) pg MCHC (32-36) % Plt Count (150-400) K/uL Neut % (Auto) (36-66) % Lymph % (Auto) (24-44) % [place] % (Auto) (2-6) % Eos % (Auto) (2-4) % Baso % (Auto) (0-1) % Sodium (140-148) mmol/L Potassium (3.6-5.2) mmol/L Chloride (100-108) mmol/L Carbon Dioxide (21-32) mmol/L Anion Gap (5.0-14.0) mmol/L BUN (7-18) mg/dL Creatinine (0.6-1.0) mg/dL Est Cr Clr Drug Dosing mL/min Estimated GFR (MDRD) (>60) Glucose (74-106) mg/dL Lactic Acid (0.4-2.0) mmol/L Calcium (8.5-10.1) mg/dL Total Bilirubin (0.2-1.0) mg/dL AST (15-37) U/L ALT (12-78) U/L Alkaline Phosphatase (46-116) U/L Troponin I < 0.017 (0.000-0.056) ng/mL Total Protein (6.4-8.2) g/dL Albumin (3.4-5.0) g/dL Globulin (2.3-3.5) g/dL Albumin/Globulin Ratio (1.2-2.2) Lipase (73-393) U/L Urine Color Yellow (YELLOW) Urine Appearance Clear (CLEAR) Urine pH 7.0 (5.0-8.0) Ur Specific [place] 1.020 (1.008-1.030) Urine Protein Negative (NEGATIVE) mg/dL Urine Glucose (UA) Negative (NEGATIVE) mg/dL Urine Ketones Negative (NEGATIVE) mg/dL Urine Occult Blood Trace-intact H (NEGATIVE) Urine Nitrite Negative (NEGATIVE) Urine Bilirubin Negative (NEGATIVE) Urine Urobilinogen 0.2 (0.2-1.0) EU/dL Ur Leukocyte Esterase Negative (NEGATIVE) Urine RBC 0-5 (0-5) Urine WBC 0-5 (0-5) Ur Epithelial Cells Few Amorphous Sediment Not seen Urine Bacteria Few Urine Mucus Not seen Meds: Medications Generic Name Dose Route Start Last Admin Trade Name Freq PRN Reason Stop Dose Admin Lactated Ringer's 1,000 mls @ 999 mls/hr 07/09/19 09:00 07/09/19 09:12 Ringers, Lactated IV 999 mls/hr ASDIRECTED JESS Administration Sodium Chloride 10 ml 07/09/19 08:57 07/09/19 09:12 Saline Flush FLUSH 10 ml ASDIRECTED PRN Administration Keep Vein Open Discontinued Medications Generic Name Dose Route Start Last Admin Trade Name Freq PRN Reason Stop Dose Admin Fentanyl 50 mcg 07/09/19 08:58 07/09/19 09:08 Sublimaze IVPUSH 07/09/19 08:59 50 mcg ONETIME ONE Administration Ondansetron HCl 4 mg 07/09/19 08:58 07/09/19 09:09 Zofran IVPUSH 07/09/19 08:59 4 mg ONETIME ONE Administration Departure - Departure Time of Disposition: 10:58 Disposition: Home, Self-Care 01 Condition: Fair Clinical Impression: Clostridium difficile diarrhea - Discharge Information Prescriptions: Hydrocodone/Acetaminophen [Hydrocodon-Acetaminophen 5-325] 1 each PO TID PRN # 10 tablet PRN Reason: Pain Vancomycin HCl 125 mg PO QID #40 capsule Instructions: Clostridium Difficile Infection, [id number] Referrals: Aaron Sahu MD [Primary Care Provider] - Forms: ED Department Discharge Additional Instructions: Take full course of antibiotics, use hydrocodone as needed for pain control, Please followup with your primary care provider in 3-5 days if not better, please call return to the emergency department with worsening of symptoms. - My Orders Last 24 Hours: My Active Orders 07/09/19 08:57 Peripheral IV Care [RC] . DIRECTED Sodium Chloride 0.9% [Saline Flush] 10 ml FLUSH ASDIRECTED PRN Peripheral IV Insertion Adult [OM.PC] Urgent 07/09/19 08:58 Isolation [COMM] Stat 07/09/19 09:00 Lactated Ringers [Ringers, Lactated] 1,000 ml IV ASDIRECTED - Assessment/Plan Last 24 Hours: My Active Orders 07/09/19 08:57 Peripheral IV Care [RC] . DIRECTED Sodium Chloride 0.9% [Saline Flush] 10 ml FLUSH ASDIRECTED PRN Peripheral IV Insertion Adult [OM.PC] Urgent 07/09/19 08:58 Isolation [COMM] Stat 07/09/19 09:00 Lactated Ringers [Ringers, Lactated] 1,000 ml IV ASDIRECTED Plan: Assessment Acuity = acute Site and laterality = Clostridium difficile diarrhea Etiology = unknown etiology Manifestations = abdominal pain, fever Location of injury = Home Lab values = [WBC elevated 18.4 consistent leukocytosis potassium low at 3.4 consistent hypokalemia lactic acid elevated 4.6 consistent lactic acidosis albumin normal at 3.9 Plan Discussed options with her including hospitalization however we are currently on red alert and have no beds available therefore she declined transfer elected to try this as an outpatient treatment prescription written for vancomycin 125 mg by mouth 4 times a day 10 days in combination with hydrocodone 5/325 one tab by mouth 3 times a day when necessary total #10 follow-up primary care 3-5 days if no improvement or call or return to the emergency department worsening of symptoms This note was dictated using [email or web address] voice recognition software please call with any questions on syntax or grammar.
[2019-07-09 10:43] VITALS: BP 123/52; PULSE 91
[2019-07-09] MEDS ORDERED: Acetaminophen/HYDROcodone 325-5 MG Tab PO ONE (11:08)
== END 2019-07-09 11:30 | disposition home or self-care (01) ==
LOC: JP.ED 08:22
DX: A04.72 Enterocolitis due to Clostridium difficile, not specified as recurrent (principal); I25.119 Atherosclerotic heart disease of native coronary artery with unspecified angina pectoris; E78.00 Pure hypercholesterolemia, unspecified; Z79.02 Long term (current) use of antithrombotics/antiplatelets; Z79.899 Other long term (current) drug therapy; Z91.040 Latex allergy status; Z88.2 Allergy status to sulfonamides; Z88.1 Allergy status to other antibiotic agents; Z88.8 Allergy status to other drugs, medicaments and biological substances
CPT/HCPCS: 36415; 80053; 81001; 83605; 83690; 84484; 85025; 87493; 96361; 96374; 96375; 99284; A9270; J2405; J3010; J7120

== ENCOUNTER 2019-07-10 09:04 | Inpatient (IN) | payer MEDICARE, BC ==
[2019-07-10] MEDS ORDERED: Sodium Chloride 0.9% 10 ML Syringe FLUSH PRN (09:19)
[2019-07-10] MEDS ORDERED: Sodium Chloride 0.9% 1,000 ML IV SCH ×2 (09:30→14:30)
[2019-07-10] MEDS ORDERED: Ondansetron 4 MG Tab.DIS PO PRN (09:55)
[2019-07-10] MEDS ORDERED: Ondansetron 4 MG/2 ML SDV IV PRN (09:55)
[2019-07-10] MEDS ORDERED: Melatonin 3 MG Tab PO PRN (09:55)
[2019-07-10] MEDS ORDERED: Ibuprofen 600 MG Tab PO PRN (09:55)
[2019-07-10] MEDS ORDERED: LORazepam 2 MG/ML SDV IVPUSH PRN (09:55)
--- NOTE | 2019-07-10 10:01 | PCM.HP.2 ---
H&P History of Present Illness - General Date of Service: 07/10/19 Admit Problem/Dx: Admission Diagnosis/Problem Admission Diagnosis/Problem Clostridium difficile enterocolitis Source of Information: Patient, Provider History Limitations: Reports: No Limitations - History of Present Illness Initial Comments - Free Text/Narative: CC: I'm in tough shape HPI: Adura presented to the emergency room with abdominal pain, nausea and watery diarrhea yesterday. She was diagnosed with C diff colitis and admission was recommended because of the severity of her disease and elevated lactic acid. No bed were available here and she declined transfer to another hospital. She wanted to try to manage at home and was discharged with PO vancomycin. She returns to day with persistent abdominal pain, anorexia and watery diarrhea. She describes achy pain throughout her lower abdomen that radiates to her lower back. This is moderately severe in nature. Pain pills have not been helping. Pain comes and goes in waves without obvious trigger. Pain has steadily been getting worse. She has mild nausea but no vomiting. She has many watery bowel movements over the past 24 hours. She is not aware of fevers or chills. She has not had anything to eat in 2 days. Pain is becoming unbearable. She feels weak and very fatigued. No complaints of shortness of breath, chest pain or change in bladder habits. She did have IV antibiotics one week ago. Despite efforts to treat her disease at home she did not do well and will be directly admitted for management. Abdominal Pain Score (Numeric/FACES): 8 - Related Data Allergies/Adverse Reactions: Allergies Allergy/AdvReac Type Severity Reaction Status Date / Time Latex, Natural Rubber Allergy Rash Verified 07/03/19 12:52 niacin Allergy Cannot Verified 07/03/19 12:52 Remember Sulfa (Sulfonamide Allergy Difficulty Verified 07/03/19 12:52 Antibiotics) Breathing ciprofloxacin AdvReac Nausea Verified 07/03/19 12:52 meperidine HCl [From Demerol] AdvReac Nausea and Verified 07/03/19 12:52 Vomiting nitrofurantoin AdvReac Nausea Verified 07/03/19 12:52 [From Macrobid] nitrofurantoin AdvReac Nausea Verified 07/03/19 12:52 macrocrystalline [From Macrobid] tetracycline [Tetracycline] AdvReac Nausea Verified 09/07/19 12:52 Home Medications: Home Meds Clopidogrel [Plavix] 75 mg PO DAILY 06/18/16 [History] Nitroglycerin [Nitrostat] 0.4 mg SL ASDIRECTED PRN 06/18/16 [History] Tumeric 538 mg PO DAILY 06/18/16 [History] Simvastatin 5 mg PO DAILY 07/03/19 [History] Hydrocodone/Acetaminophen [Hydrocodon-Acetaminophen 5-325] 1 each PO TID PRN # 10 tablet 07/09/19 [Rx] Vancomycin HCl 125 mg PO QID #40 capsule 07/09/19 [Rx] Past Medical History HEENT History: Reports: Impaired Vision Cardiovascular History: Reports: Angina, Arrhythmia, CAD, High Cholesterol, Stents, Other (See Below) Other Cardiovascular History: mitro valve prolaps Respiratory History: Reports: Sleep Apnea Gastrointestinal History: Reports: Colon Polyp, GERD, Hiatal Hernia Genitourinary History: Reports: None 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: Musculoskeletal History: Reports: Fracture Other Musculoskeletal History: right knee pain and swellling Neurological History: Reports: Concussion Psychiatric History: Reports: None Endocrine/Metabolic History: Reports: Osteoporosis Hematologic History: Reports: None Immunologic History: Reports: None Oncologic (Cancer) History: Reports: None Dermatologic History: Reports: None - Infectious Disease History Infectious Disease History: Reports: Chicken Pox, Measles, Mumps - Past Surgical History Head Surgeries/Procedures: Reports: None HEENT Surgical History: Reports: Other (See Below) Other HEENT Surgeries/Procedures: nasal surgery for sleep apnea Cardiovascular Surgical History: Reports: Coronary Artery Stent Respiratory Surgical History: Reports: None GI Surgical History: Reports: Appendectomy, Cholecystectomy, Colonoscopy, EGD, Other (See Below) Other GI Surgeries/Procedures: abd. surgery for stomach on ride side of body Female Surgical History: Reports: Hysterectomy, Salpingo-Oophorectomy Endocrine Surgical History: Reports: None Neurological Surgical History: Reports: None Musculoskeletal Surgical History: Reports: None Dermatological Surgical History: Reports: None Social & Family History - Family History Cardiac: Reports: CAD - Tobacco Use Smoking Status *Q: Never Smoker Second Hand Smoke Exposure: No - Caffeine Use Caffeine Use: Reports: Coffee - Alcohol Use Alcohol Use History: No - Recreational Drug Use Recreational Drug Use: No H&P Review of Systems - Review of Systems: Review Of Systems: See Below Free Text/Narrative: A complete 12 point review of systems was obtained. Pertinent positives and negatives are noted in the history of present illness. All other systems were reviewed and were negative except as noted. Exam - Exam Exam: See Below - Vital Signs Vital Signs: Last Vital Signs Temp 37.3 C 07/10/19 09:43 Pulse 116 H 07/10/19 09:43 Resp 18 07/10/19 09:43 BP 92/56 L 07/10/19 09:43 Pulse Ox 97 07/10/19 09:43 Weight: 68.583 kg - Exam Quality Assessment: No: Supplemental Oxygen General: Alert, Oriented, Cooperative, Mild Distress HEENT: Conjunctiva Clear. No: Mucosa Moist & [place] (dry), Scleral Icterus Neck: Supple, Trachea Midline. No: Lymphadenopathy Lungs: Clear to Auscultation, Normal Respiratory Effort Cardiovascular: Regular Rate, Regular Rhythm GI/Abdominal Exam: Soft, No Distention, Tender (moderate diffuse), Abnormal Bowel Sounds (hypo) Extremities: No Pedal Edema. No: Increased Warmth Skin: Warm, Dry Neuro Extensive - Mental Status: Alert, Oriented x3, Nl Response to Commands Neuro Extensive - Motor, Sensory, Reflexes: No: Dysarthria, Abnormal Motor, Tremor Psychiatric: Alert, Normal Affect - Patient Data Result Diagrams: 07/10/19 09:44 07/10/19 09:44 *Q Meaningful Use (ADM) - VTE Risk Assess *Q Each Risk Factor Represents 1 Point: Obesity ( BMI > 25 kg/m2) Total Score 1 Point Risk Factors: 1 Each Risk Factor Represents 2 Points: Age 60 - 74 Years Total Score 2 Point Risk Factors: 2 Each Risk Factor Represents 3 Points: None Total Score 3 Point Risk Factors: 0 Each Risk Factor Represents 5 Points: None Total Score 5 Point Risk Factors: 0 Venous Thromboembolism Risk Factor Score *Q: 3 - Problem List (1) Clostridium difficile diarrhea SNOMED Code(s): 1088013491543 ICD Code: A04.72 - ENTEROCOLITIS D/T CLOSTRIDIUM DIFFICILE, NOT SPCF RECUR Status: Acute Current Visit: No (2) Sepsis SNOMED Code(s): 14590021 ICD Code: A41.9 - SEPSIS, UNSPECIFIED ORGANISM Status: Acute Current Visit: Yes Qualifiers: Sepsis type: sepsis due to unspecified organism Sepsis acute organ dysfunction status: without acute organ dysfunction Qualified Code(s): A41.9 - Sepsis, unspecified organism Problem List Initiated/Reviewed/Updated: Yes Orders Last 24hrs: Active Orders 24 hr Category Date Time Status Patient Status [ADT] Routine ADT 07/10/19 09:55 Ordered Intake and Output [RC] QSHIFT Care 07/10/19 09:55 Ordered Notify Provider Vital Signs [RC] ASDIRECTED Care 07/10/19 09:55 Ordered Oxygen Therapy [RC] PRN Care 07/10/19 09:55 Ordered Peripheral IV Care [RC] . DIRECTED Care 07/10/19 09:19 Active Up With Assistance [RC] ASDIRECTED Care 07/10/19 09:55 Ordered VTE/DVT Education [RC] Per Unit Routine Care 07/10/19 09:55 Ordered Vital Signs [RC] Q4H Care 07/10/19 09:55 Ordered Clear Liquid Diet [DIET] Diet 07/10/19 Lunch Ordered BASIC METABOLIC PANEL,BMP [CHEM] AM Lab 07/11/19 05:11 Ordered BASIC METABOLIC PANEL,BMP [CHEM] Urgent Lab 07/10/19 09:44 Received CBC W/O DIFF,HEMOGRAM [HEME] AM Lab 07/11/19 05:11 Ordered CBC WITH AUTO DIFF [HEME] Urgent Lab 07/10/19 09:44 Received LACTIC ACID [CHEM] Urgent Lab 07/10/19 09:44 Received Acetaminophen [Tylenol] Med 07/10/19 09:55 Ordered 650 mg PO Q4H PRN Acetaminophen/HYDROcodone [[place] 325-5 MG] Med 07/10/19 09:55 Ordered 1 each PO Q4H PRN Clopidogrel [Plavix] Med 07/11/19 09:00 Ordered 75 mg PO DAILY Docusate Sodium/Sennosides [Senna Plus] Med 07/10/19 09:55 Ordered 1 tab PO BID PRN Ibuprofen [Motrin] Med 07/10/19 09:55 Ordered 600 mg PO Q6H PRN LORazepam [Ativan] Med 07/10/19 09:55 Ordered 0.5 mg IVPUSH Q4H PRN Lactobacillus Rhamnosus GG [Culturelle] Med 07/10/19 10:00 Ordered 1 cap PO BID Melatonin Med 07/10/19 09:55 Ordered 9 mg PO BEDTIME PRN Ondansetron [Zofran ODT] Med 07/10/19 09:55 Ordered 4 mg PO Q6H PRN Ondansetron [Zofran] Med 07/10/19 09:55 Ordered 4 mg IV Q6H PRN Sodium Chloride 0.9% [Normal Saline] 1,000 ml Med 07/10/19 09:30 Ordered IV ASDIRECTED Sodium Chloride 0.9% [Normal Saline] 1,000 ml Med 07/10/19 09:30 Ordered IV ASDIRECTED Sodium Chloride 0.9% [Saline Flush] Med 07/10/19 09:19 Ordered 10 ml FLUSH ASDIRECTED PRN Vancomycin [Vancocin 250 MG/5 ML Soln] Med 07/10/19 10:00 Ordered 125 mg PO QID fentaNYL [Sublimaze] Med 07/10/19 09:55 Ordered 25 mcg IVPUSH Q2H PRN Peripheral IV Insertion Adult [OM.PC] Routine Oth 07/10/19 09:19 Ordered Sequential Compression Device [OM.PC] Routine Oth 07/10/19 09:55 Ordered Resuscitation Status Routine Resus Stat 07/10/19 09:55 Ordered Medication Orders Sodium Chloride (Normal Saline) 1,000 mls @ 125 mls/hr IV ASDIRECTED JSES Sodium Chloride (Normal Saline) 1,000 mls @ 500 mls/hr IV ASDIRECTED JESS Stop: 07/10/19 11:31 Sodium Chloride (Saline Flush) 10 ml FLUSH ASDIRECTED PRN PRN Reason: Keep Vein Open Assessment/Plan Comment:: ASSESSMENT AND PLAN - Clostridium difficile colitis with sepsis - patient is tachycardic and has an elevated lactic acid consistent with sepsis. She failed outpatient therapy. Not currently febrile. She has significant pain and is dehydrated with mild renal insufficiency. She would benefit from inpatient management. White blood cell count is more than 20,000. -Oral vancomycin 4 times daily -IV fluid bolus followed by continuous infusion -nausea management -Pain control -Recheck lactic acid this afternoon -clear liquids Maintenance issues - - DVT prophylaxis - mechanical - GI prophylaxis - not indicated - Nutrition - clear liquids, advance as tolerated - Boss catheter - not indicated CODE STATUS - full code Admission justification - This patient will be admitted for inpatient services and is medically appropriate meeting medical necessity for inpatient admission as outlined in my documentation. I reasonably expect the patient will require inpatient services that span a period time over 2 midnights. I reasonably expect this patient to be discharged or transferred within 96 hours after admission to the [facility]. Disposition - I would anticipate discharge to home after the hospital stay Primary care physician - Alma Cerda M.D. - Mortality Measure Prognosis:: Good
[2019-07-10] MEDS: fentaNYL 100 MCG/2 ML SDV IVPUSH PRN ×2 (11:16→14:42)
[2019-07-10] MEDS: Vancomycin 250 MG/5 ML ML Oral Solution PO SCH ×3 (12:13→21:03)
[2019-07-10] MEDS: Sodium Chloride 0.9% 1,000 ML IV SCH ×2 (12:53→18:00)
[2019-07-10] MEDS: Lactobacillus Rhamnosus GG (Probiotic) Cap PO SCH ×2 (15:08→19:59)
[2019-07-10] MEDS: Acetaminophen/HYDROcodone 325-5 MG Tab PO PRN (16:12)
[2019-07-10] MEDS: Potassium Chloride 20 MEQ, Lidocaine 1% 2 ML in Sodium Chloride 0.9% 100 ML IV SCH ×2 (16:13→18:45)
[2019-07-11] MEDS: Sodium Chloride 0.9% 1,000 ML IV SCH (01:29)
[2019-07-11] MEDS: Acetaminophen/HYDROcodone 325-5 MG Tab PO PRN ×5 (01:29→21:56)
[2019-07-11] MEDS: Vancomycin 250 MG/5 ML ML Oral Solution PO SCH ×4 (05:45→21:09)
[2019-07-11] MEDS: Clopidogrel 75 MG Tab PO SCH (10:05)
[2019-07-11] MEDS: Lactobacillus Rhamnosus GG (Probiotic) Cap PO SCH ×2 (10:05→21:09)
[2019-07-11] MEDS: Potassium Chloride 20 MEQ, Lidocaine 1% 2 ML in Sodium Chloride 0.9% 100 ML IV SCH ×2 (10:17→12:23)
--- NOTE | 2019-07-11 12:43 | PCM.PN ---
- General Info Date of Service: 07/11/19 Subjective Update: No acute events overnight. Abdominal pain is better controlled at this time. Diarrhea seems to be slowing but she still has watery diarrhea. She has not had any fevers. Appetite slowly improving. No nausea or vomiting. Heart rate has normalized. Functional Status: Reports: Pain Controlled, Tolerating Diet - Review of Systems General: Denies: Fever Gastrointestinal: Reports: Abdominal Pain, Diarrhea - Patient Data Vitals - Most Recent: Last Vital Signs Temp 36.9 C 07/11/19 11:01 Pulse 78 07/11/19 11:01 Resp 16 07/11/19 11:01 BP 111/68 07/11/19 11:01 Pulse Ox 95 07/11/19 11:01 Weight - Most Recent: 68.583 kg I&O - Last 24 Hours: Intake & Output 07/10/19 07/11/19 07/11/19 22:59 06:59 14:59 Intake Total 2207 1900 472 Output Total 500 Balance 1707 1900 472 Lab Results Last 24 Hours: Laboratory Results - last 24 hr 07/10/19 07/10/19 07/10/19 Range/Units 14:00 14:00 19:56 WBC (4.5-11.0) K/uL RBC (3.30-5.50) M/uL Hgb (12.0-15.0) g/dL Hct (36.0-48.0) % MCV (80-98) fL MCH (27-31) pg MCHC (32-36) % Plt Count (150-400) K/uL Sodium (140-148) mmol/L Potassium 3.7 (3.6-5.2) mmol/L Chloride (100-108) mmol/L Carbon Dioxide (21-32) mmol/L Anion Gap (5.0-14.0) mmol/L BUN (7-18) mg/dL Creatinine (0.6-1.0) mg/dL Est Cr Clr Drug Dosing mL/min Estimated GFR (MDRD) (>60) Glucose (74-106) mg/dL Lactic Acid 3.8 H 1.8 (0.4-2.0) mmol/L Calcium (8.5-10.1) mg/dL 07/11/19 07/11/19 Range/Units 04:30 04:30 WBC 14.1 H (4.5-11.0) K/uL RBC 3.73 (3.30-5.50) M/uL Hgb 11.1 L D (12.0-15.0) g/dL Hct 35.1 L (36.0-48.0) % MCV 94 (80-98) fL MCH 30 (27-31) pg MCHC 32 (32-36) % Plt Count 206 (150-400) K/uL Sodium 140 (140-148) mmol/L Potassium 3.6 (3.6-5.2) mmol/L Chloride 109 H (100-108) mmol/L Carbon Dioxide 23 (21-32) mmol/L Anion Gap 11.6 (5.0-14.0) mmol/L BUN 10 (7-18) mg/dL Creatinine 0.7 (0.6-1.0) mg/dL Est Cr Clr Drug Dosing 65.37 mL/min Estimated GFR (MDRD) > 60 (>60) Glucose 101 (74-106) mg/dL Lactic Acid (0.4-2.0) mmol/L Calcium 7.5 L (8.5-10.1) mg/dL Med Orders - Current: Current Medications Acetaminophen (Tylenol) 650 mg PO Q4H PRN PRN Reason: Pain (Mild 1-3)/fever Hydrocodone Bitart/Acetaminophen ([place] 325-5 Mg) 1 tab PO Q4H PRN PRN Reason: Pain (moderate 4-6) Last Admin: 07/11/19 12:07 Dose: 1 tab Clopidogrel Bisulfate (Plavix) 75 mg PO DAILY [facility] Last Admin: 07/11/19 10:05 Dose: Not Given Fentanyl (Sublimaze) 25 mcg IVPUSH Q2H PRN PRN Reason: Pain (severe 7-10) Last Admin: 07/10/19 14:42 Dose: 25 mcg Sodium Chloride (Normal Saline) 1,000 mls @ 125 mls/hr IV ASDIRECTED [facility] Last Admin: 07/11/19 01:29 Dose: 125 mls/hr Potassium Chloride 20 meq/Lidocaine HCl 2 ml/ Sodium Chloride 112 mls @ 50 mls/ hr IV Q2H JESS Stop: 07/11/19 13:59 Last Admin: 07/11/19 12:23 Dose: 50 mls/hr Ibuprofen (Motrin) 600 mg PO Q6H PRN PRN Reason: Pain/Fever Lactobacillus Rhamnosus (Culturelle) 1 cap PO BID [facility] Last Admin: 07/11/19 10:05 Dose: 1 cap Lorazepam (Ativan) 0.5 mg IVPUSH Q4H PRN PRN Reason: Nausea/Vomiting Melatonin (Melatonin) 9 mg PO BEDTIME PRN PRN Reason: sleep Ondansetron HCl (Zofran Odt) 4 mg PO Q6H PRN PRN Reason: Nausea able to take PO Ondansetron HCl (Zofran) 4 mg IV Q6H PRN PRN Reason: Nausea/Vomiting Senna/Docusate Sodium (Senna Plus) 1 tab PO BID PRN PRN Reason: Constipation Sodium Chloride (Saline Flush) 10 ml FLUSH ASDIRECTED PRN PRN Reason: Keep Vein Open Vancomycin HCl (Vancocin 250 Mg/5 Ml Soln) 125 mg PO QID [facility] Last Admin: 07/11/19 10:05 Dose: 125 mg Discontinued Medications Sodium Chloride (Normal Saline) 1,000 mls @ 500 mls/hr IV ASDIRECTED [facility] Stop: 07/10/19 11:31 Last Admin: 07/10/19 11:00 Dose: 500 mls/hr Potassium Chloride 20 meq/Lidocaine HCl 2 ml/ Sodium Chloride 112 mls @ 50 mls/ hr IV Q2H [facility] Stop: 07/10/19 19:29 Last Admin: 07/10/19 18:45 Dose: 50 mls/hr Sodium Chloride (Normal Saline) 1,000 mls @ 500 mls/hr IV ASDIRECTED [facility] Stop: 07/10/19 16:31 Lidocaine HCl (Xylocaine-Mpf 1%) 1 ml INJECT ONETIME ONE Stop: 07/10/19 09:51 Last Admin: 07/10/19 11:17 Dose: 0.2 ml - Exam Quality Assessment: No: Supplemental Oxygen General: Alert, Oriented, Cooperative, No Acute Distress Lungs: Normal Respiratory Effort GI/Abdominal Exam: Soft, No Distention Extremities: No Pedal Edema Skin: Warm, Dry Psy/Mental Status: Alert, Normal Affect - Problem List & Annotations (1) Clostridium difficile diarrhea SNOMED Code(s): 8866107676237 Code(s): A04.72 - ENTEROCOLITIS D/T CLOSTRIDIUM DIFFICILE, NOT SPCF RECUR Status: Acute Current Visit: No (2) Sepsis SNOMED Code(s): 98033233 Code(s): A41.9 - SEPSIS, UNSPECIFIED ORGANISM Status: Acute Current Visit : Yes Qualifiers: Sepsis type: sepsis due to unspecified organism Sepsis acute organ dysfunction status: without acute organ dysfunction Qualified Code(s): A41.9 - Sepsis, unspecified organism - Problem List Review Problem List Initiated/Reviewed/Updated: Yes - My Orders Last 24 Hours: My Active Orders 07/11/19 09:00 Clopidogrel [Plavix] 75 mg PO DAILY 07/11/19 10:00 Potassium Chloride 20 meq Lidocaine 1% [Xylocaine 1%] 2 ml Sodium Chloride 0.9 % [Normal Saline] 100 ml IV Q2H 07/11/19 13:00 Sodium Chloride 0.9% [Normal Saline] 1,000 ml IV ASDIRECTED 07/11/19 Lunch Soft Diet [DIET] 07/12/19 05:00 BASIC METABOLIC PANEL,BMP [CHEM] Timed CBC W/O DIFF,HEMOGRAM [HEME] Timed (1) - Plan Plan:: ASSESSMENT AND PLAN - Clostridium difficile colitis with sepsis - sepsis has resolved, white blood cell count trending down and clinically she is improving. Pain is down to mild to moderate at this time. No fevers overnight. -Oral vancomycin 4 times daily -Saline lock IV -nausea management -Pain control -Mechanical soft diet Maintenance issues - - DVT prophylaxis - mechanical - GI prophylaxis - not indicated - Nutrition - mechanical soft diet Disposition - I would anticipate discharge to home after the hospital stay Primary care physician - Alma Cerda M.D.
[2019-07-11] MEDS ORDERED: Sodium Chloride 0.9% 1,000 ML IV SCH (13:00)
[2019-07-12] MEDS: Vancomycin 250 MG/5 ML ML Oral Solution PO SCH ×4 (05:54→21:02)
[2019-07-12] MEDS: Lactobacillus Rhamnosus GG (Probiotic) Cap PO SCH ×2 (09:36→21:02)
[2019-07-12] MEDS: Clopidogrel 75 MG Tab PO SCH (09:37)
--- NOTE | 2019-07-12 12:49 | PCM.PN ---
- General Info Date of Service: 07/12/19 Subjective Update: Ms. Blandon has shown progressive improvement since admission. She has remained hemodynamically stable and afebrile over the past 24 hours. Diarrhea seems to be improving with less frequency and less watery. Continues to experience mild diffuse abdominal discomfort. Functional Status: Reports: Tolerating Diet, Ambulating, Urinating - Review of Systems General: Reports: Weakness. Denies: Fever, Chills Pulmonary: Reports: No Symptoms Cardiovascular: Reports: No Symptoms Gastrointestinal: Reports: Abdominal Pain, Diarrhea. Denies: Difficulty Swallowing, Hematochezia, Melena, Nausea, Vomiting - Patient Data Vitals - Most Recent: Last Vital Signs Temp 96.9 F 07/12/19 11:00 Pulse 80 07/12/19 11:00 Resp 18 07/12/19 11:00 BP 129/73 07/12/19 11:00 Pulse Ox 92 L 07/12/19 11:00 Weight - Most Recent: 151 lb 3.194 oz I&O - Last 24 Hours: Intake & Output 07/11/19 07/12/19 07/12/19 22:59 06:59 14:59 Intake Total 1593 597 Output Total 300 Balance 1593 597 -300 Lab Results Last 24 Hours: Laboratory Results - last 24 hr 07/12/19 07/12/19 Range/Units 05:36 05:36 WBC 8.7 (4.5-11.0) K/uL RBC 3.80 (3.30-5.50) M/uL Hgb 11.3 L (12.0-15.0) g/dL Hct 35.5 L (36.0-48.0) % MCV 93 (80-98) fL MCH 30 (27-31) pg MCHC 32 (32-36) % Plt Count 213 (150-400) K/uL Sodium 142 (140-148) mmol/L Potassium 3.6 (3.6-5.2) mmol/L Chloride 111 H (100-108) mmol/L Carbon Dioxide 23 (21-32) mmol/L Anion Gap 11.6 (5.0-14.0) mmol/L BUN 4 L D (7-18) mg/dL Creatinine 0.7 (0.6-1.0) mg/dL Est Cr Clr Drug Dosing 65.37 mL/min Estimated GFR (MDRD) > 60 (>60) Glucose 97 (74-106) mg/dL Calcium 7.6 L (8.5-10.1) mg/dL Med Orders - Current: Current Medications Acetaminophen (Tylenol) 650 mg PO Q4H PRN PRN Reason: Pain (Mild 1-3)/fever Hydrocodone Bitart/Acetaminophen ([place] 325-5 Mg) 1 tab PO Q4H PRN PRN Reason: Pain (moderate 4-6) Last Admin: 07/11/19 21:56 Dose: 1 tab Clopidogrel Bisulfate (Plavix) 75 mg PO DAILY [facility] Last Admin: 07/12/19 09:37 Dose: 75 mg Fentanyl (Sublimaze) 25 mcg IVPUSH Q2H PRN PRN Reason: Pain (severe 7-10) Last Admin: 07/10/19 14:42 Dose: 25 mcg Ibuprofen (Motrin) 600 mg PO Q6H PRN PRN Reason: Pain/Fever Lactobacillus Rhamnosus (Culturelle) 1 cap PO BID [facility] Last Admin: 07/12/19 09:36 Dose: 1 cap Lorazepam (Ativan) 0.5 mg IVPUSH Q4H PRN PRN Reason: Nausea/Vomiting Melatonin (Melatonin) 9 mg PO BEDTIME PRN PRN Reason: sleep Ondansetron HCl (Zofran Odt) 4 mg PO Q6H PRN PRN Reason: Nausea able to take PO Ondansetron HCl (Zofran) 4 mg IV Q6H PRN PRN Reason: Nausea/Vomiting Senna/Docusate Sodium (Senna Plus) 1 tab PO BID PRN PRN Reason: Constipation Sodium Chloride (Saline Flush) 10 ml FLUSH ASDIRECTED PRN PRN Reason: Keep Vein Open Vancomycin HCl (Vancocin 250 Mg/5 Ml Soln) 125 mg PO QID [facility] Last Admin: 07/12/19 09:37 Dose: 125 mg Discontinued Medications Sodium Chloride (Normal Saline) 1,000 mls @ 125 mls/hr IV ASDIRECTED [facility] Last Admin: 07/11/19 01:29 Dose: 125 mls/hr Sodium Chloride (Normal Saline) 1,000 mls @ 500 mls/hr IV ASDIRECTED [facility] Stop: 07/10/19 11:31 Last Admin: 07/10/19 11:00 Dose: 500 mls/hr Potassium Chloride 20 meq/Lidocaine HCl 2 ml/ Sodium Chloride 112 mls @ 50 mls/ hr IV Q2H [facility] Stop: 07/10/19 19:29 Last Admin: 07/10/19 18:45 Dose: 50 mls/hr Sodium Chloride (Normal Saline) 1,000 mls @ 500 mls/hr IV ASDIRECTED [facility] Stop: 07/10/19 16:31 Potassium Chloride 20 meq/Lidocaine HCl 2 ml/ Sodium Chloride 112 mls @ 50 mls/ hr IV Q2H [facility] Stop: 07/11/19 13:59 Last Admin: 07/11/19 12:23 Dose: 50 mls/hr Sodium Chloride (Normal Saline) 1,000 mls @ 50 mls/hr IV ASDIRECTED [facility] Last Admin: 07/11/19 21:58 Dose: 50 mls/hr Lidocaine HCl (Xylocaine-Mpf 1%) 1 ml INJECT ONETIME ONE Stop: 07/10/19 09:51 Last Admin: 07/10/19 11:17 Dose: 0.2 ml - Exam Quality Assessment: DVT Prophylaxis General: Alert, Oriented, Cooperative, Mild Distress Lungs: Clear to Auscultation, Normal Respiratory Effort Cardiovascular: Regular Rate, Regular Rhythm, No Murmurs GI/Abdominal Exam: Soft, No Organomegaly, Tender. No: Distended, Guarding, Rigid, Rebound Extremities: Non-Tender, No Pedal Edema - Problem List Review Problem List Initiated/Reviewed/Updated: Yes - My Orders Last 24 Hours: My Active Orders 07/12/19 12:45 Convert IV to Saline Lock [OM.PC] Routine - Plan Plan:: ASSESSMENT AND PLAN - Clostridium difficile colitis with sepsis - sepsis has resolved, white blood cell count mobilized and clinically she is showing slow improvement. Pain is down to mild at this time. No fevers overnight. -Oral vancomycin 4 times daily -Saline lock IV -nausea management -Pain control -Mechanical soft diet Maintenance issues - - DVT prophylaxis - mechanical - GI prophylaxis - not indicated - Nutrition - mechanical soft diet Disposition - I would anticipate discharge to home after the hospital stay Primary care physician - Alma Adam
[2019-07-12] MEDS: Acetaminophen 325 MG Tab PO PRN (15:04)
[2019-07-13] MEDS: Acetaminophen 325 MG Tab PO PRN ×3 (05:06→21:20)
[2019-07-13] MEDS: Vancomycin 250 MG/5 ML ML Oral Solution PO SCH ×4 (05:25→21:20)
[2019-07-13] MEDS: Clopidogrel 75 MG Tab PO SCH (08:00)
[2019-07-13] MEDS: Lactobacillus Rhamnosus GG (Probiotic) Cap PO SCH ×2 (08:00→21:20)
[2019-07-13] MEDS: Acetaminophen/HYDROcodone 325-5 MG Tab PO PRN (12:07)
--- NOTE | 2019-07-13 13:10 | PCM.PN ---
- General Info Date of Service: 07/13/19 Subjective Update: Ms. Blandon has noted further modest improvement over the last 24 hours. She has remained afebrile, appetite seems to be slowly improving. Stools had been less frequent and more formed through the day, this morning she has had more loose stools and more frequent than what she experienced yesterday. Functional Status: Reports: Tolerating Diet, Ambulating, Urinating - Review of Systems General: Reports: Weakness, Malaise. Denies: Fever, Chills Pulmonary: Reports: No Symptoms Cardiovascular: Reports: No Symptoms Gastrointestinal: Reports: Abdominal Pain, Decreased Appetite, Diarrhea. Denies : Constipation, Difficulty Swallowing, Nausea, Vomiting - Patient Data Vitals - Most Recent: Last Vital Signs Temp 98.2 F 07/13/19 10:59 Pulse 93 07/13/19 10:59 Resp 18 07/13/19 10:59 BP 112/63 07/13/19 10:59 Pulse Ox 98 07/13/19 10:59 Weight - Most Recent: 151 lb 3.194 oz I&O - Last 24 Hours: Intake & Output 07/12/19 07/13/19 07/13/19 22:59 06:59 14:59 Intake Total 240 360 Balance 240 360 Med Orders - Current: Current Medications Acetaminophen (Tylenol) 650 mg PO Q4H PRN PRN Reason: Pain (Mild 1-3)/fever Last Admin: 07/13/19 05:06 Dose: 650 mg Hydrocodone Bitart/Acetaminophen ([place] 325-5 Mg) 1 tab PO Q4H PRN PRN Reason: Pain (moderate 4-6) Last Admin: 07/13/19 12:07 Dose: 1 tab Clopidogrel Bisulfate (Plavix) 75 mg PO DAILY [facility] Last Admin: 07/13/19 08:00 Dose: 75 mg Fentanyl (Sublimaze) 25 mcg IVPUSH Q2H PRN PRN Reason: Pain (severe 7-10) Last Admin: 07/10/19 14:42 Dose: 25 mcg Ibuprofen (Motrin) 600 mg PO Q6H PRN PRN Reason: Pain/Fever Lactobacillus Rhamnosus (Culturelle) 1 cap PO BID [facility] Last Admin: 07/13/19 08:00 Dose: 1 cap Lorazepam (Ativan) 0.5 mg IVPUSH Q4H PRN PRN Reason: Nausea/Vomiting Melatonin (Melatonin) 9 mg PO BEDTIME PRN PRN Reason: sleep Ondansetron HCl (Zofran Odt) 4 mg PO Q6H PRN PRN Reason: Nausea able to take PO Ondansetron HCl (Zofran) 4 mg IV Q6H PRN PRN Reason: Nausea/Vomiting Senna/Docusate Sodium (Senna Plus) 1 tab PO BID PRN PRN Reason: Constipation Sodium Chloride (Saline Flush) 10 ml FLUSH ASDIRECTED PRN PRN Reason: Keep Vein Open Vancomycin HCl (Vancocin 250 Mg/5 Ml Soln) 125 mg PO QID [facility] Last Admin: 07/13/19 10:59 Dose: 125 mg Discontinued Medications Sodium Chloride (Normal Saline) 1,000 mls @ 125 mls/hr IV ASDIRECTED [facility] Last Admin: 07/11/19 01:29 Dose: 125 mls/hr Sodium Chloride (Normal Saline) 1,000 mls @ 500 mls/hr IV ASDIRECTED [facility] Stop: 07/10/19 11:31 Last Admin: 07/10/19 11:00 Dose: 500 mls/hr Potassium Chloride 20 meq/Lidocaine HCl 2 ml/ Sodium Chloride 112 mls @ 50 mls/ hr IV Q2H [facility] Stop: 07/10/19 19:29 Last Admin: 07/10/19 18:45 Dose: 50 mls/hr Sodium Chloride (Normal Saline) 1,000 mls @ 500 mls/hr IV ASDIRECTED [facility] Stop: 07/10/19 16:31 Potassium Chloride 20 meq/Lidocaine HCl 2 ml/ Sodium Chloride 112 mls @ 50 mls/ hr IV Q2H [facility] Stop: 07/11/19 13:59 Last Admin: 07/11/19 12:23 Dose: 50 mls/hr Sodium Chloride (Normal Saline) 1,000 mls @ 50 mls/hr IV ASDIRECTED [facility] Last Admin: 07/11/19 21:58 Dose: 50 mls/hr Lidocaine HCl (Xylocaine-Mpf 1%) 1 ml INJECT ONETIME ONE Stop: 07/10/19 09:51 Last Admin: 07/10/19 11:17 Dose: 0.2 ml - Exam Quality Assessment: DVT Prophylaxis General: Alert, Oriented, Cooperative, Mild Distress Lungs: Clear to Auscultation, Normal Respiratory Effort Cardiovascular: Regular Rate, Regular Rhythm, No Murmurs GI/Abdominal Exam: Soft, No Organomegaly, Tender. No: Distended, Guarding, Rigid, Rebound Extremities: Non-Tender, No Pedal Edema - Problem List Review Problem List Initiated/Reviewed/Updated: Yes - My Orders Last 24 Hours: My Active Orders 07/12/19 12:45 Convert IV to Saline Lock [OM.PC] Routine - Plan Plan:: ASSESSMENT AND PLAN - Clostridium difficile colitis with sepsis - sepsis has resolved, white blood cell count lysed and clinically she is showing slow improvement. Pain is mild at this time. No fevers overnight. -Oral vancomycin 4 times daily -Saline lock IV -nausea management -Pain control -Mechanical soft diet Maintenance issues - - DVT prophylaxis - mechanical - GI prophylaxis - not indicated - Nutrition - mechanical soft diet Disposition - I would anticipate discharge to home after the hospital stay Primary care physician - Kasandra Adam
[2019-07-14] MEDS: Vancomycin 250 MG/5 ML ML Oral Solution PO SCH ×2 (06:37→09:30)
[2019-07-14 07:26] VITALS: BP 123/66; PULSE 81
[2019-07-14] MEDS: Clopidogrel 75 MG Tab PO SCH (09:29)
[2019-07-14] MEDS: Acetaminophen 325 MG Tab PO PRN (09:30)
[2019-07-14] MEDS: Lactobacillus Rhamnosus GG (Probiotic) Cap PO SCH (09:44)
--- NOTE | 2019-07-14 10:55 | PCM.DCSUM1 ---
Discharge Summary - Hospital Course Brief History: Ms. Blandon is a 73-year-old woman who was admitted through the emergency department with weakness, fever, and diarrhea, secondary to C. difficile colitis. - Discharge Data Discharge Date: 07/14/19 Discharge Disposition: Home, Self-Care 01 Condition: Good - Referral to Home Health Primary Care Physician: Aaron Sahu MD - Discharge Diagnosis/Problem(s) (1) Clostridium difficile diarrhea SNOMED Code(s): 9767338428563 ICD Code: A04.72 - ENTEROCOLITIS D/T CLOSTRIDIUM DIFFICILE, NOT SPCF RECUR Status: Acute Current Visit: No (2) Sepsis SNOMED Code(s): 19736918 ICD Code: A41.9 - SEPSIS, UNSPECIFIED ORGANISM Status: Acute Current Visit: Yes Qualifiers: Sepsis type: sepsis due to unspecified organism Sepsis acute organ dysfunction status: without acute organ dysfunction Qualified Code(s): A41.9 - Sepsis, unspecified organism - Patient Summary/Data Hospital Course: Ms. Blandon presented to the emergency room with abdominal pain, nausea and watery diarrhea on the day prior to admission. She was diagnosed with C diff colitis and admission was recommended because of the severity of her disease and elevated lactic acid. No bed were available here and she declined transfer to another hospital. She wanted to try to manage at home and was discharged with PO vancomycin. She returns to day with persistent abdominal pain, anorexia and watery diarrhea. She describes achy pain throughout her lower abdomen that radiates to her lower back. This is moderately severe in nature. Pain pills have not been helping. Pain comes and goes in waves without obvious trigger. Pain has steadily been getting worse. She has mild nausea but no vomiting. She has many watery bowel movements over the past 24 hours. She is not aware of fevers or chills. She has not had anything to eat in 2 days. Pain is becoming unbearable. She feels weak and very fatigued. No complaints of shortness of breath, chest pain or change in bladder habits. She did have IV antibiotics one week ago for management of a urinary tract infection. Despite efforts to treat her disease at home she did not do well and will be directly admitted for management. On admission she was given IV fluids for hydration as well as pain medication and medication for nausea. She was started on oral antibiotic therapy with vancomycin 125 mg 4 times daily. Over the next several days of her hospital stay diarrhea, abdominal pain, and weakness gradually improved. By the time of discharge she was tolerating a soft diet without significant difficulty. She will be discharged home on oral vancomycin and will complete another 9 days outpatient for a total course of 14 days. Activity will be as tolerated and she will remain in the soft low residue diet. Follow-up appointment will be scheduled for primary care provider within one week. - Patient Instructions Diet: GI Soft/Low Residue/Low Fiber Activity: As Tolerated Other/Special Instructions: FU appt w/ primary care provider w/in 1 week - Discharge Plan *PRESCRIPTION DRUG MONITORING PROGRAM REVIEWED*: Not Applicable *COPY OF PRESCRIPTION DRUG MONITORING REPORT IN PATIENT BILL: Not Applicable Prescriptions/Med Rec: Lactobacillus Rhamnosus GG [Culturelle] 1 cap PO BID #60 cap Vancomycin [Vancocin 250 MG/5 ML Soln] 125 mg PO QID #30 ml Home Medications: Home Meds Clopidogrel [Plavix] 75 mg PO DAILY 06/18/16 [History] Nitroglycerin [Nitrostat] 0.4 mg SL ASDIRECTED PRN 06/18/16 [History] Tumeric 538 mg PO DAILY 06/18/16 [History] Simvastatin 5 mg PO DAILY 07/03/19 [History] Hydrocodone/Acetaminophen [Hydrocodon-Acetaminophen 5-325] 1 each PO TID PRN # 10 tablet 07/09/19 [Rx] Vancomycin HCl 125 mg PO QID #40 capsule 07/09/19 [Rx] Lactobacillus Rhamnosus GG [Culturelle] 1 cap PO BID #60 cap 07/14/19 [Rx] Vancomycin [Vancocin 250 MG/5 ML Soln] 125 mg PO QID #30 ml 07/14/19 [Rx] Patient Handouts: Clostridium Difficile Infection, [id number] Referrals: Aaron Sahu MD [Primary Care Provider] - 07/20/19 1:00 pm (Please arrive 15 minutes early to register for your appointment.) - Discharge Summary/Plan Comment DC Time >30 min.: No - Patient Data Vitals - Most Recent: Last Vital Signs Temp 97.2 F 07/14/19 07:23 Pulse 81 07/14/19 07:23 Resp 16 07/14/19 07:23 BP 123/66 07/14/19 07:23 Pulse Ox 97 07/14/19 07:23 Weight - Most Recent: 151 lb 3.194 oz I&O - Last 24 hours: Intake & Output 07/13/19 07/14/19 07/14/19 22:59 06:59 14:59 Intake Total 400 400 Balance 400 400 Med Orders - Current: Current Medications Acetaminophen (Tylenol) 650 mg PO Q4H PRN PRN Reason: Pain (Mild 1-3)/fever Last Admin: 07/14/19 09:30 Dose: 650 mg Hydrocodone Bitart/Acetaminophen ([place] 325-5 Mg) 1 tab PO Q4H PRN PRN Reason: Pain (moderate 4-6) Last Admin: 07/13/19 12:07 Dose: 1 tab Clopidogrel Bisulfate (Plavix) 75 mg PO DAILY [facility] Last Admin: 07/14/19 09:29 Dose: 75 mg Fentanyl (Sublimaze) 25 mcg IVPUSH Q2H PRN PRN Reason: Pain (severe 7-10) Last Admin: 07/10/19 14:42 Dose: 25 mcg Ibuprofen (Motrin) 600 mg PO Q6H PRN PRN Reason: Pain/Fever Lactobacillus Rhamnosus (Culturelle) 1 cap PO BID [facility] Last Admin: 07/14/19 09:44 Dose: 1 cap Lorazepam (Ativan) 0.5 mg IVPUSH Q4H PRN PRN Reason: Nausea/Vomiting Melatonin (Melatonin) 9 mg PO BEDTIME PRN PRN Reason: sleep Ondansetron HCl (Zofran Odt) 4 mg PO Q6H PRN PRN Reason: Nausea able to take PO Ondansetron HCl (Zofran) 4 mg IV Q6H PRN PRN Reason: Nausea/Vomiting Senna/Docusate Sodium (Senna Plus) 1 tab PO BID PRN PRN Reason: Constipation Sodium Chloride (Saline Flush) 10 ml FLUSH ASDIRECTED PRN PRN Reason: Keep Vein Open Vancomycin HCl (Vancocin 250 Mg/5 Ml Soln) 125 mg PO QID [facility] Last Admin: 07/14/19 09:30 Dose: 125 mg Discontinued Medications Sodium Chloride (Normal Saline) 1,000 mls @ 125 mls/hr IV ASDIRECTED [facility] Last Admin: 07/11/19 01:29 Dose: 125 mls/hr Sodium Chloride (Normal Saline) 1,000 mls @ 500 mls/hr IV ASDIRECTED [facility] Stop: 07/10/19 11:31 Last Admin: 07/10/19 11:00 Dose: 500 mls/hr Potassium Chloride 20 meq/Lidocaine HCl 2 ml/ Sodium Chloride 112 mls @ 50 mls/ hr IV Q2H [facility] Stop: 07/10/19 19:29 Last Admin: 07/10/19 18:45 Dose: 50 mls/hr Sodium Chloride (Normal Saline) 1,000 mls @ 500 mls/hr IV ASDIRECTED [facility] Stop: 07/10/19 16:31 Potassium Chloride 20 meq/Lidocaine HCl 2 ml/ Sodium Chloride 112 mls @ 50 mls/ hr IV Q2H [facility] Stop: 07/11/19 13:59 Last Admin: 07/11/19 12:23 Dose: 50 mls/hr Sodium Chloride (Normal Saline) 1,000 mls @ 50 mls/hr IV ASDIRECTED [facility] Last Admin: 07/11/19 21:58 Dose: 50 mls/hr Lidocaine HCl (Xylocaine-Mpf 1%) 1 ml INJECT ONETIME ONE Stop: 07/10/19 09:51 Last Admin: 07/10/19 11:17 Dose: 0.2 ml - Exam Quality Assessment: Reports: DVT Prophylaxis General: Reports: Alert, Oriented, Cooperative, Mild Distress Lungs: Reports: Clear to Auscultation, Normal Respiratory Effort Cardiovascular: Reports: Regular Rate, Regular Rhythm GI/Abdominal Exam: Soft, No Organomegaly, Tender. No: Guarding, Rigid, Rebound Extremities: Non-Tender, No Pedal Edema
== END 2019-07-14 12:46 | disposition home or self-care (01) | DRG 872 ==
LOC: JP.MS 09:04
PROVIDERS: ADMIT Internal Medicine; ATTEND Hospitalist
DX: A41.9 Sepsis, unspecified organism (principal); A04.72 Enterocolitis due to Clostridium difficile, not specified as recurrent; M81.0 Age-related osteoporosis without current pathological fracture; K21.9 Gastro-esophageal reflux disease without esophagitis; H54.7 Unspecified visual loss; I25.10 Atherosclerotic heart disease of native coronary artery without angina pectoris; E78.00 Pure hypercholesterolemia, unspecified; Z86.010 Personal history of colon polyps; Z95.5 Presence of coronary angioplasty implant and graft; Z88.2 Allergy status to sulfonamides; Z88.8 Allergy status to other drugs, medicaments and biological substances; Z88.1 Allergy status to other antibiotic agents; Z91.040 Latex allergy status; Z90.49 Acquired absence of other specified parts of digestive tract
CPT/HCPCS: 36415; 80048; 83605; 84132; 85025; 85027; A9270-GY; J2001; J3010; J3480; J7030

== ENCOUNTER 2020-01-28 07:40 | Inpatient (IN) | payer MEDICARE, BC ==
[~2020-01-28 07:40] MED LIST changes: +Acetaminophen 325 MG Tab PO ONE; -Acetaminophen 500 MG Tab PO ONE; +Dexamethasone 4 MG/ML SDV ONE; +Glycopyrrolate 0.2 MG/ML 5 ML MDV ONE; +Neostigmine Methylsulfate 1 MG/ML 5 ML Syringe ONE; +Ondansetron 4 MG/2 ML SDV ONE; +Propofol 200 MG/20 ML SDV ONE; +Rocuronium 50 MG/5 ML Vial ONE; -Scopolamine 1.5 MG Transdermal Patch TRDERM ONE; +Succinylcholine 200 MG/10 ML MDV ONE; +fentaNYL 250 MCG/5 ML SDV ONE
[2020-01-28] MEDS ORDERED: Dextrose 5%-Lactated Ringers 1,000 ML IV SCH (08:00)
[2020-01-28] MEDS ORDERED: HYDROmorphone/Normal Saline 15 MG/30 ML PCA IV PRN (08:19)
[2020-01-28] MEDS ORDERED: Naloxone 0.4 MG/ML SDV IV PRN (08:19)
[2020-01-28] MEDS: Scopolamine 1.5 MG Transdermal Patch TOP SCH (08:58)
[2020-01-28] MEDS ORDERED: ceFAZolin 2 GM in Premix Bag 1 BAG IV ONE (09:00)
[2020-01-28] MEDS ORDERED: Ketamine 50 MG in Sodium Chloride 0.9% 49.5 ML IV SCH (09:15)
[2020-01-28] MEDS ORDERED: Ketamine 500 MG/5 ML MDV IV SCH (09:15)
[2020-01-28] MEDS ORDERED: Ropivacaine 36 ML, dexAMETHasone 8 MG, EPINEPHrine 0.4 MG, Sodium Chloride 0.9% 41.6 ML NERVRT SCH ×4 (09:15)
[2020-01-28] MEDS ORDERED: Meropenem 500 MG SDV ONE (09:21)
[2020-01-28] MEDS ORDERED: Dexamethasone 4 MG/ML SDV ONE (10:32)
[2020-01-28] MEDS: Lidocaine 1% with EPINEPHrine 1:100,000 50 ML MDV ONE ×2 (11:20→11:42)
[2020-01-28] MEDS: Bupivacaine 0.5% 50 ML MDV ONE ×2 (11:20→11:42)
[2020-01-28] MEDS ORDERED: fentaNYL 100 MCG/2 ML SDV ONE (11:30)
[2020-01-28] MEDS ORDERED: SCOPOLAMINE PATCH CHECK TOP SCH (12:00)
[2020-01-28] MEDS ORDERED: hydrOXYzine HCL 100 MG/2 ML SDV IM PRN (12:43)
[2020-01-28] MEDS ORDERED: Cyclobenzaprine 10 MG Tab PO PRN (12:43)
[2020-01-28] MEDS ORDERED: Nitroglycerin 0.4 MG Tab.SL SL PRN (12:47)
[2020-01-28] MEDS: Dextrose 5%-Lactated Ringers 1,000 ML IV SCH ×2 (14:00→20:21)
[2020-01-28] MEDS ORDERED: ceFAZolin 2 GM in Premix Bag 1 BAG IV SCH (16:00)
[2020-01-28] MEDS: atorvaSTATin 20 MG Tab PO SCH (20:56)
[2020-01-29] MEDS: Dextrose 5%-Lactated Ringers 1,000 ML IV SCH ×3 (02:57→21:33)
[2020-01-29] MEDS: Ondansetron 4 MG/2 ML SDV IVPUSH PRN (06:46)
[2020-01-29] MEDS ORDERED: HYDROmorphone/Normal Saline 15 MG/30 ML PCA IV PRN (08:00)
[2020-01-29] MEDS: SCOPOLAMINE PATCH CHECK TOP SCH (08:21)
[2020-01-29] MEDS: Metoclopramide 10 MG/2 ML SDV IVPUSH SCH ×3 (08:21→21:39)
[2020-01-29] MEDS: Docusate Sodium 100 MG Cap PO SCH ×2 (08:21→21:39)
[2020-01-29] MEDS: Acetaminophen 325 MG Tab PO SCH ×3 (08:21→21:39)
[2020-01-29] MEDS: Pantoprazole 40 MG Tab.CR PO SCH (08:21)
[2020-01-29] MEDS: Clopidogrel 75 MG Tab PO SCH (08:22)
[2020-01-29] MEDS ORDERED: Lactated Ringers 1,000 ML IV ONE (20:42)
[2020-01-29] MEDS ORDERED: Lactated Ringers 250 ML IV ONE (21:00)
[2020-01-29] MEDS: atorvaSTATin 20 MG Tab PO SCH (21:39)
[2020-01-30] MEDS: Acetaminophen 325 MG Tab PO SCH ×4 (03:29→21:03)
[2020-01-30] MEDS: Metoclopramide 10 MG/2 ML SDV IVPUSH SCH ×4 (03:29→21:04)
[2020-01-30] MEDS: Pantoprazole 40 MG Tab.CR PO SCH (07:51)
[2020-01-30] MEDS: Docusate Sodium 100 MG Cap PO SCH ×2 (08:03→21:04)
[2020-01-30] MEDS: SCOPOLAMINE PATCH CHECK TOP SCH (08:03)
[2020-01-30] MEDS: Clopidogrel 75 MG Tab PO SCH (08:03)
[2020-01-30] MEDS ORDERED: Furosemide 20 MG/2 ML VIAL IVPUSH ONE (09:00)
[2020-01-30] MEDS: Bisacodyl 5 MG Tab PO SCH ×2 (09:10→21:04)
[2020-01-30] MEDS: Dextrose 5%-Lactated Ringers 1,000 ML IV SCH (10:22)
[2020-01-30] MEDS ORDERED: HYDROmorphone/Normal Saline 15 MG/30 ML PCA IV PRN (11:00)
[2020-01-30] MEDS: Ondansetron 4 MG/2 ML SDV IVPUSH PRN (21:03)
[2020-01-30] MEDS: atorvaSTATin 20 MG Tab PO SCH (21:04)
[2020-01-31] MEDS: Acetaminophen 325 MG Tab PO SCH ×4 (02:07→19:45)
[2020-01-31] MEDS: Metoclopramide 10 MG/2 ML SDV IVPUSH SCH ×4 (02:08→19:44)
[2020-01-31] MEDS: Dextrose 5%-Lactated Ringers 1,000 ML IV SCH (02:15)
[2020-01-31] MEDS ORDERED: Dextrose 5%-Lactated Ringers 1,000 ML IV SCH (07:23)
[2020-01-31] MEDS ORDERED: Potassium Phosphates 45 MMOLE in Sodium Chloride 0.9% 250 ML IV SCH (07:30)
[2020-01-31] MEDS ORDERED: Furosemide 20 MG/2 ML VIAL IVPUSH STA (07:30)
[2020-01-31] MEDS: Potassium Phos in 0.9 % NaCl 15 MMOL in Premix Bag 1 BAG IV SCH ×6 (07:59→16:25)
[2020-01-31] MEDS: Pantoprazole 40 MG Tab.CR PO SCH (08:01)
--- NOTE | 2020-01-31 08:19 | PN ---
DATE OF SERVICE: 01/31/2020 SUBJECTIVE: Audra states her pain is controlled. She has been afebrile. Oral intake 770. Urine output 2300. She has had no difficulty urinating after Boss catheter was removed. Hemoglobin was 11.7 today. Potassium is 3.1. Phosphorus is 2.3. BNP is 881, up from 492. She has no questions or concerns. OBJECTIVE: GENERAL: Audra Blandon is a pleasant 74-year-old female. She is alert and orientated. VITAL SIGNS: TPR is 96.5, 84, 20, blood pressure 135/76. HEENT: Negative. NECK: Supple. HEART: Regular rate and rhythm. LUNGS: Clear. ABDOMEN: Dressing dry and intact. Abdominal binder is on. EXTREMITIES: Without peripheral edema. 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 Date of surgery: 01/28/2020. Surgeon: John Lambert MD. PLAN: 1. Decrease IV to TKO. 2. K-Phos 45 millimoles IV 1 time. 3. Lasix 20 mg IV now. 4. Lasix 10 mg IV at 1500. 5. Check CBC, CMP, mag, phos, and BNP in a.m. on 02/01/2020 at 0400. 6. Do not push oral intake until the patient has bowel movement. 7. Good pulmonary toilet. 8. We will evaluate p.r.n. or in a.m. Alexandra Onofre PA-C /[id number]
[2020-01-31] MEDS: Bisacodyl 5 MG Tab PO SCH ×2 (10:29→21:47)
[2020-01-31] MEDS: Docusate Sodium 100 MG Cap PO SCH ×2 (10:29→21:47)
[2020-01-31] MEDS: Clopidogrel 75 MG Tab PO SCH (10:29)
[2020-01-31] MEDS: Scopolamine 1.5 MG Transdermal Patch TOP SCH (10:29)
[2020-01-31] MEDS: SCOPOLAMINE PATCH CHECK TOP SCH (10:30)
--- NOTE | 2020-01-31 14:10 | PN ---
DATE OF SERVICE: 01/30/2020 The patient has been afebrile with stable vital signs. Pain control seems to be quite a bit better today. We will leave her on the present [employer] ATTENDANT. Otherwise, BNP is up a little bit and we will give her a dose of Lasix, back down a little bit further on the IV rate as well. Boss catheter will be coming out today. Will be given a full liquid diet. Continue with bowel stimulation. John Lambert MD /[id number]
--- NOTE | 2020-01-31 14:31 | PN ---
DATE OF SERVICE: 01/29/2020 The patient has been afebrile with stable vital signs. As she usually does, she is feeling quite nauseated postoperatively. We are maximizing treatment of that. Otherwise, urine output has been adequate. We will sips of clear liquids today. We will add some Reglan IV to help with the nausea as well at this point and back down, otherwise, we will leave the Boss catheter in for one more day. John Lambert MD /[id number]
[2020-01-31] MEDS ORDERED: Furosemide 20 MG/2 ML VIAL IVPUSH ONE (15:00)
[2020-01-31] MEDS ORDERED: diphenhydrAMINE 50 MG/ML SDV IVPUSH PRN (19:55)
[2020-01-31] MEDS: atorvaSTATin 20 MG Tab PO SCH (21:49)
[2020-01-31] MEDS: Bacitracin Oint 28.35 GM Tube TOP SCH (21:52)
[2020-02-01] MEDS: Acetaminophen 325 MG Tab PO SCH ×4 (01:28→20:10)
[2020-02-01] MEDS: Metoclopramide 10 MG/2 ML SDV IVPUSH SCH ×4 (01:28→20:10)
[2020-02-01] MEDS ORDERED: Benzocaine/Cetylpyridinium/Menthol Lozenge MUCMEM PRN (01:31)
[2020-02-01] MEDS ORDERED: Potassium Phosphates 30 MMOLE in Sodium Chloride 0.9% 250 ML IV SCH (07:00)
[2020-02-01] MEDS ORDERED: Furosemide 20 MG/2 ML VIAL IVPUSH ONE (07:15)
[2020-02-01] MEDS: Pantoprazole 40 MG Tab.CR PO SCH (07:29)
--- NOTE | 2020-02-01 08:00 | PN ---
DATE OF SERVICE: 02/01/2020 Audar has been afebrile, temp max of 99. Oral intake 860, urine output 4150. She did have a bowel movement this morning. Pain has been controlled with the SECTION BEAMER. REVIEW OF SYSTEMS: Remainder of review of systems negative for any pertinent positives and negatives. OBJECTIVE: GENERAL: Audra Blandon is a pleasant 74-year-old female. VITAL SIGNS: TPR at 0647: 99, 84, 18, blood pressure 139/75. HEENT: Negative. NECK: Supple. HEART: Regular rate and rhythm. LUNGS: Clear. ABDOMEN: Dressing dry and intact. Abdominal binder is on. EXTREMITIES: Without peripheral edema. 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 Date of surgery: 01/28/2020. Surgeon: John Lambert MD. PLAN: 1. Full liquid diet. 2. Lasix 20 mg IV 1 time now. 3. K-Phos 30 millimoles IV 1 time today. 4. CBC, CMP, phos and BNP in a.m. 5. Magnesium 2 g IV x6 hours for 48 hours. 6. Replace Aquacel dressing. 7. Dilaudid 2 mg every 3 hours p.r.n. pain. 8. DC SECTION BEAMER and DC continuous pulse ox. 9. Good pulmonary toilet. 10.We will evaluate p.r.n. or in a.m. Alexandra Onofre PA-C /[id number]
[2020-02-01] MEDS: HYDROmorphone 2 MG Tab PO PRN ×4 (08:16→20:10)
[2020-02-01] MEDS: Docusate Sodium 100 MG Cap PO SCH ×3 (08:17→20:12)
[2020-02-01] MEDS: Clopidogrel 75 MG Tab PO SCH (08:17)
[2020-02-01] MEDS: Bisacodyl 5 MG Tab PO SCH ×3 (08:17→20:12)
[2020-02-01] MEDS: SCOPOLAMINE PATCH CHECK TOP SCH (08:18)
[2020-02-01] MEDS: Bacitracin Oint 28.35 GM Tube TOP SCH ×3 (08:19→20:09)
[2020-02-01] MEDS: Magnesium Sulfate/Water 2 GM in Premix Bag 1 BAG IV SCH ×3 (08:21→22:03)
[2020-02-01] MEDS: Potassium Phos in 0.9 % NaCl 15 MMOL in Premix Bag 1 BAG IV SCH ×4 (12:39→15:42)
[2020-02-01] MEDS: atorvaSTATin 20 MG Tab PO SCH (20:09)
[2020-02-01] MEDS ORDERED: Dimethicone 20%/Zinc Oxide 25% 56 GM Spray Bottle TOP PRN (20:30)
[2020-02-02] MEDS: HYDROmorphone 2 MG Tab PO PRN ×5 (00:25→21:18)
[2020-02-02] MEDS: Acetaminophen 325 MG Tab PO SCH ×4 (02:05→19:49)
[2020-02-02] MEDS: Magnesium Sulfate/Water 2 GM in Premix Bag 1 BAG IV SCH ×4 (02:06→19:49)
[2020-02-02] MEDS: Metoclopramide 10 MG/2 ML SDV IVPUSH SCH (02:07)
[2020-02-02] MEDS ORDERED: Metoclopramide 10 MG/2 ML SDV IVPUSH PRN (07:23)
[2020-02-02] MEDS: Pantoprazole 40 MG Tab.CR PO SCH (07:34)
[2020-02-02] MEDS ORDERED: Furosemide 20 MG/2 ML VIAL IVPUSH ONE (07:45)
[2020-02-02] MEDS ORDERED: Potassium Chloride 20 MEQ Tab.ER PO ONE (08:00)
--- NOTE | 2020-02-02 08:23 | PN ---
DATE OF SERVICE: 02/02/2020 SUBJECTIVE: Audra has had several stools. She has been afebrile. Oral intake 1230. Urine output 1100 + 400 urine stool mix. REVIEW OF SYSTEMS: Remainder of review of systems negative for any pertinent positives and negatives. OBJECTIVE: GENERAL: Audra Blandon is a 74-year-old female. She is alert, orientated. VITAL SIGNS: TPR at 0726 is 96.9, 72, 18, blood pressure 123/65. HEENT: Negative. NECK: Supple. HEART: Regular rate and rhythm. LUNGS: Clear. ABDOMEN: Abdominal binder is on. Dressing dry and intact. Aquacel dressing is on. EXTREMITIES: Without peripheral edema. ASSESSMENT: Exploratory laparotomy with lysis of adhesions, repair of multifocal incarcerated incisional hernia, small bowel strictureplasty and placement of Interceed mesh for multifocal incarcerated incisional hernia, focal small bowel stricture related to adherent scar, and extensive intra-abdominal adhesions. Date of surgery: 01/28/2020. Surgeon: John Lambert MD. PLAN: 1. Lasix 20 mg IV 1 time now. 2. KCl 40 mEq orally 1 time with food. 3. Regular diet. 4. Set up home health care. The patient wants to be discharged in a.m. 5. Check CBC, CMP, phos, and BNP in a.m. 6. Discontinue Dulcolax and Colace. 7. Saline lock IV. 8. Good pulmonary toilet. 9. We will evaluate p.r.n. or in a.m. Alexandra Onofre PA-C /[id number]
[2020-02-02] MEDS: SCOPOLAMINE PATCH CHECK TOP SCH (09:30)
[2020-02-02] MEDS: Bacitracin Oint 28.35 GM Tube TOP SCH ×3 (09:30→21:20)
[2020-02-02] MEDS: Clopidogrel 75 MG Tab PO SCH (09:30)
--- NOTE | 2020-02-02 13:39 | OR ---
DATE OF PROCEDURE: 01/28/2020 SURGEON: John Lambert MD PREOPERATIVE DIAGNOSIS: Multifocal incisional hernia. POSTOPERATIVE DIAGNOSES: 1. Multifocal incarcerated incisional hernia. 2. 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 3. Extensive intraabdominal adhesions. OPERATIVE PROCEDURES: Exploratory laparotomy with lysis of extensive adhesions and, 1. Repair of multifocal incarcerated incisional hernia with mesh (75165, 60930). 2. Small bowel stricturoplasty (47112). 3. Placement of Interceed mesh to limit recurrent adhesion formation between pelvic and abdominal moffett and underlying viscera (29903). ANESTHESIA: General. DRYWALL FINISHING FOREMAN: Alexandra Onofre PA-C INDICATION FOR PROCEDURE: This is a 74-year-old presenting with increasingly symptomatic and difficult to reduce hernias. The plan is to proceed with exploratory laparotomy with repair of mesh. Potential risks including bleeding, infection, injury to underlying viscera, problems with the mesh becoming infected or hernias recurring, and remote possibility of cardiopulmonary, septic, or hemorrhagic complications leading to were discussed, and the patient wishes to proceed. DETAILS OF PROCEDURE: The patient was taken to the operating room and placed in a supine position. After general endotracheal anesthesia was induced, a Boss catheter was inserted, and the abdomen was prepped and draped. A midline incision, which eventually extended from a handsbreadth's below the xiphoid to roughly a handsbreadth's below the umbilicus was made and carried down through the skin and subcutaneous tissue. During the course of dissection, the patient was noted to have 3 separate hernias, 2 in the area above the umbilicus and 1 below. All had some adherent omentum or bowel within, i.e., that were incarcerated. The lower hernia had some intensely scarred bowel, in the superior segment of small bowel. As this was dissected away from the hernia, it came off with some scar which was causing significant narrowing of the lumen of the area. This scar was then dissected free, freeing up the stricture. At a single point, there was an area of limited deserosalization and was repaired with a ROBERT rayo load. At that point, the stricture appeared to be satisfactorily alleviated. That area was then reinforced with some fibrin sealant as well as omental patch over the area of stricturoplasty. Following this, when either of the adhesions were taken down, a Ventrio ST hernia patch measuring 19.6 cm x 24.6 cm was selected and oriented on the long axis and vertical midline. At 5 cm intervals on its circumference on the polypropylene side of the mesh, 2-0 Vicryl sutures were placed and appropriate stab wounds were made where those sutures would be pulled up, thus suspending the mesh in position well away from the fascial defects. The mesh was soaked in antibiotic-containing saline solution and then placed into the abdomen. The upper half of the sutures was then pulled up, after which, Interceed mesh was placed underneath the mesh and from there down toward the pelvis to limit recurrent adhesion formations. The remainder of the sutures were then pulled through the abdominal wall and then the mesh also secured circumferentially with titanium tacking screws placed into the shelf underlying the adherent layer of the mesh, thus protecting them from direct exposure from the underlying viscera. At that point, the area was irrigated once again with antibiotic-containing saline solution. The midline fascia was then approximated with a #2 Vicryl stitch, the subcutaneous tissue with 2 layers of 3-0 and 4-0 Vicryl stitch deep, and erick for the skin. Bilateral transversus abdominis plane blocks had been placed, and the wound was also anesthetized with 1% lidocaine mixed with Marcaine. The patient was taken to the recovery room in satisfactory condition. Physician emergency veterinary assistant, Alexandra Onofre, played an essential role in assisting in this case; helping to position the patient, retract structures as needed, as well as suturing and cutting sutures when indicated. Her presence improved patient safety and decreased the operative time. John Lambert MD /[id number]
[2020-02-02] MEDS: atorvaSTATin 20 MG Tab PO SCH (21:18)
[2020-02-03] MEDS: HYDROmorphone 2 MG Tab PO PRN ×3 (01:16→13:05)
[2020-02-03] MEDS: Acetaminophen 325 MG Tab PO SCH ×3 (01:16→13:05)
[2020-02-03] MEDS: Magnesium Sulfate/Water 2 GM in Premix Bag 1 BAG IV SCH (01:17)
[2020-02-03 06:59] VITALS: BP 121/75; PULSE 82
[2020-02-03] MEDS: Pantoprazole 40 MG Tab.CR PO SCH (09:03)
[2020-02-03] MEDS: Bacitracin Oint 28.35 GM Tube TOP SCH ×2 (09:03→13:00)
[2020-02-03] MEDS: Clopidogrel 75 MG Tab PO SCH (09:03)
[2020-02-03] MEDS: SCOPOLAMINE PATCH CHECK TOP SCH (09:07)
[2020-02-03] MEDS: Scopolamine 1.5 MG Transdermal Patch TOP SCH (09:07)
[2020-02-03] MEDS ORDERED: Lactobacillus Rhamnosus GG (Probiotic) Cap PO SCH (09:15)
--- NOTE | 2020-02-03 09:27 | DISCH ---
ADMISSION DIAGNOSES: 1. Multifocal incarcerated incisional hernia. 2. Coronary artery disease. 3. Gastroesophageal reflux disease. 4. Hyperlipidemia. 5. Mitral valve prolapse. 6. Obstructive sleep apnea. 7. Osteoporosis. 8. Palpitation. 9. 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 DISCHARGE DIAGNOSES: Exploratory laparotomy with lysis of extensive adhesions: 1. Repair of multifocal incarcerated incisional hernia with mesh. 2. Small bowel strictureplasty. 3. Placement of Interceed mesh to limit recurrent adhesion formation between pelvic and abdominal moffett and underlying viscera. POSTOPERATIVE DIAGNOSES: 1. Multifocal incarcerated incisional hernia. 2. 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 3. Extensive intraabdominal adhesions. Date of surgery: 01/28/2020. Surgeon: John Lambert MD. HISTORY: Audra Blandon is a 74-year-old female presenting with increasingly symptomatic and difficult to reduce hernias. After preoperative evaluation and discussion of possible risks and possible complications, she wished to proceed with surgical procedure. HOSPITAL COURSE: Audra had her surgery on 01/28/2020. She had no operative complications. On postoperative day #1, vital signs were stable. She was feeling quite nauseated and was treated with scopolamine patch added, Reglan IV q.6 hours scheduled. On 01/30/2020, remained to be afebrile. Pain was better controlled with an increase in THREADER settings. BNP was elevated and she was given a dose of Lasix. Boss catheter discontinued. On 01/31/2020, postop day #3, IV was decreased. Lasix was given twice IV for elevated BNP and K-Phos was replaced. On 02/01/2020, Aquacel dressing was replaced. Incision looked good. Rose Marie intact. Vital signs remained stable. THREADER was discontinued. She was started on oral pain medications, full liquid diet and was given Lasix onetime for continuing elevation of BNP. On 02/02/2020, she did have a bowel movement. Again, given Lasix, but BNP was starting to improve. Potassium was replaced. Vital signs were stable, and on 02/03/2020, able to be discharged to home with home health care. PHYSICAL EXAMINATION: GENERAL: Audra Blandon is a 74-year-old female, height is 5 feet 4.96 inches, weight is 155 pounds. VITAL SIGNS: TPR at 0655, 98, 82, 18, blood pressure 121/75, O2 saturations by pulse oximetry 93%. HEENT: Negative. NECK: Supple. HEART: Regular rate and rhythm. LUNGS: Clear. ABDOMEN: Aquacel dressing is on. Abdominal binder is on. EXTREMITIES: Without peripheral edema. DISPOSITION: Discharged to home with home health care. CONDITION: Stable and improving. FOLLOWUP APPOINTMENT: John Lambert MD on 02/09/2020, at 10 a.m. HOME MEDICATIONS: 1. Dilaudid 2 mg every 4 hours p.r.n. pain #42. 2. Tylenol 650 mg every 6 hours p.r.n. pain. 3. She is to resume her home medications: a. Vitamin D3 2000 international units daily. b. Clopidogrel/Plavix 75 mg oral daily. c. Nitrostat 0.4 sublingual use as directed for chest pain. d. Turmeric 535 mg oral daily. e. Lipitor 40 mg oral at bedtime. DIET: Usual diet as tolerated, drink 8 to 10 glasses of water a day. ACTIVITY: No lifting greater than 10 pounds for 6 weeks. Driving after discharge: Do not drive for 1 week and while on pain medication. Shower/bathing: May shower. DISCHARGE INSTRUCTIONS: Notify provider if any fever, increased pain, redness, nausea, or vomiting. Wound incision care: Keep site clean and dry. Wear abdominal binder for 6 weeks. Take off Aquacel dressing on 02/05/[address]auze over staple line. Special instruction: Use incentive spirometer 10 times every hour while awake for 1 week.
[2020-02-03] MEDS ORDERED: Calcium Carbonate 500 MG Tab.Chew PO PRN (09:44)
== END 2020-02-03 16:30 | disposition home health service (06) | DRG 330 ==
LOC: JP.SDSSCHI 07:40 → JP.SDS 07:40 → EDSTATUS 10:45 → JP.MS 11:30
PROVIDERS: ADMIT Surgery; ATTEND Surgery
PROC: 0DQ80ZZ Repair Small Intestine, Open Approach (ICD-10-PCS; principal; 2020-01-28)
PROC: 0DNW0ZZ Release Peritoneum, Open Approach (ICD-10-PCS; 2020-01-28)
PROC: 0WUF0JZ Supplement Abdominal Wall with Synthetic Substitute, Open Approach (ICD-10-PCS; 2020-01-28)
PROC: 3E0M05Z Introduction of Adhesion Barrier into Peritoneal Cavity, Open Approach (ICD-10-PCS; 2020-01-28)
DX: K43.0 Incisional hernia with obstruction, without gangrene (principal); K56.51 Intestinal adhesions [bands], with partial obstruction; I25.10 Atherosclerotic heart disease of native coronary artery without angina pectoris; K21.9 Gastro-esophageal reflux disease without esophagitis; E78.5 Hyperlipidemia, unspecified; I34.1 Nonrheumatic mitral (valve) prolapse; G47.33 Obstructive sleep apnea (adult) (pediatric); M81.0 Age-related osteoporosis without current pathological fracture; K44.9 Diaphragmatic hernia without obstruction or gangrene; E78.2 Mixed hyperlipidemia; Z98.890 Other specified postprocedural states; Z90.49 Acquired absence of other specified parts of digestive tract; Z79.899 Other long term (current) drug therapy; Z88.2 Allergy status to sulfonamides; Z91.040 Latex allergy status; Q69.0 Accessory finger(s); Q69.2 Accessory toe(s); Z95.5 Presence of coronary angioplasty implant and graft; Z88.8 Allergy status to other drugs, medicaments and biological substances; Z88.1 Allergy status to other antibiotic agents
CPT/HCPCS: 36415; 80048; 80053; 82607; 82728; 83735; 83880; 84100; 85027; 88302; 94762; A9270-GY; C1713; C1781; J0171; J0330; J0690; J1100; J1170; J1200; J1940; J2001; J2020; J2185; J2405; J2704; J2710; J2765; J2795; J3010; J3410; J3475; J3490; J7050; J7120; J7121

== ENCOUNTER 2020-02-10 16:42 | Inpatient (IN) | payer MEDICARE, BC ==
[2020-02-10] MEDS ORDERED: Sodium Chloride 0.9% 10 ML Syringe FLUSH PRN (17:33)
[2020-02-10] MEDS ORDERED: Lactated Ringers 1,000 ML IV ONE (17:35)
[2020-02-10] MEDS ORDERED: Morphine 2 MG/ML SYRINGE IVPUSH ONE (17:35)
[2020-02-10] MEDS ORDERED: Ondansetron 4 MG/2 ML SDV IVPUSH ONE (17:36)
[2020-02-10] MEDS ORDERED: HYDROmorphone 1 MG/ML Syringe IVPUSH ONE (17:39)
--- NOTE | 2020-02-10 17:43 | EDM.PDOC ---
ED HPI GENERAL MEDICAL PROBLEM - General Chief Complaint: General Stated Complaint: FEVER,NOT FEELING WELL POST SURGERY Time Seen by Provider: 02/10/20 17:17 Source of Information: Reports: Patient, Old Records, RN Notes Reviewed History Limitations: Reports: No Limitations - History of Present Illness INITIAL COMMENTS - FREE TEXT/NARRATIVE: 74-year-old female presents emergency department a complaint of increasing abdominal pain she is also developed a sore throat had fevers at home she feels short of breath. She is postop 2 weeks hernia repair with midline laparotomy she states she was evaluated by her primary surgeon yesterday told she had fluid on her lungs and was given Lasix and potassium. She states she still feels short of breath was told she had fever today did not realize she had fever. She has not had any exposures she did receive an influenza shot this year no sick contacts no travel out of her home has been homebound Lower Abdomen Pain Score (Numeric/FACES): 5 - Related Data Allergies Allergy/AdvReac Type Severity Reaction Status Date / Time Latex, Natural Rubber Allergy Rash Verified 02/10/20 16:58 niacin Allergy Cannot Verified 02/10/20 16:58 Remember Sulfa (Sulfonamide Allergy Difficulty Verified 02/10/20 16:58 Antibiotics) Breathing ceftriaxone [From Rocephin] AdvReac Diarrhea Verified 02/10/20 16:58 ciprofloxacin AdvReac Nausea Verified 02/10/20 16:58 meperidine HCl [From Demerol] AdvReac Nausea and Verified 02/10/20 16:58 Vomiting morphine AdvReac Nausea Verified 02/10/20 16:58 nitrofurantoin AdvReac Nausea Verified 02/10/20 16:58 [From Macrobid] nitrofurantoin AdvReac Nausea Verified 02/10/20 16:58 macrocrystalline [From Macrobid] tetracycline [Tetracycline] AdvReac Nausea Verified 02/10/20 16:58 Home Meds: Home Meds Nitroglycerin [Nitrostat] 0.4 mg SL ASDIRECTED PRN 06/18/16 [History] Tumeric 538 mg PO DAILY 06/18/16 [History] Cholecalciferol (Vitamin D3) [Vitamin D3] 2,000 unit PO DAILY 01/26/20 [History] Clopidogrel Bisulfate [Clopidogrel] 75 mg PO DAILY 01/26/20 [History] atorvaSTATin [Lipitor] 40 mg PO BEDTIME 01/26/20 [History] Acetaminophen [Tylenol] 650 mg PO Q6H tablet 02/03/20 [Rx] HYDROmorphone [Dilaudid] 2 mg PO Q4H PRN #42 tablet 02/03/20 [Rx] Furosemide [Lasix] 20 mg PO DAILY 02/10/20 [History] Potassium Chloride [Klor-Con M20] 20 meq PO DAILY 02/10/20 [History] Past Medical History HEENT History: Reports: Impaired Vision Cardiovascular History: Reports: Angina, Arrhythmia, CAD, High Cholesterol, Stents, Other (See Below) Other Cardiovascular History: mitro valve prolaps Respiratory History: Reports: Sleep Apnea Gastrointestinal History: Reports: Colon Polyp, GERD, Hiatal Hernia [employer] History: Reports: Musculoskeletal History: Reports: Fracture Other Musculoskeletal History: right knee pain and swellling Neurological History: Reports: Concussion Endocrine/Metabolic History: Reports: Osteoporosis - Infectious Disease History Infectious Disease History: Reports: C-Difficile - Past Surgical History Head Surgeries/Procedures: Reports: None HEENT Surgical History: Reports: Other (See Below) Other HEENT Surgeries/Procedures: nasal surgery for sleep apnea Cardiovascular Surgical History: Reports: Coronary Artery Stent Respiratory Surgical History: Reports: None GI Surgical History: Reports: Appendectomy, Cholecystectomy, Colonoscopy, EGD, Hernia Repair/Other, Other (See Below) Other GI Surgeries/Procedures: abd. surgery for stomach on ride side of body Female Surgical History: Reports: Hysterectomy, Salpingo-Oophorectomy Endocrine Surgical History: Reports: None Neurological Surgical History: Reports: None Musculoskeletal Surgical History: Reports: None Dermatological Surgical History: Reports: None Social & Family History - Family History Cardiac: Reports: CAD - Tobacco Use Smoking Status *Q: Never Smoker Second Hand Smoke Exposure: No - Caffeine Use Caffeine Use: Reports: Coffee - Recreational Drug Use Recreational Drug Use: No ED ROS GENERAL - Review of Systems Review Of Systems: See Below Constitutional: Reports: Fever, Weakness, Fatigue HEENT: Reports: Sinus Problem Respiratory: Reports: Shortness of Breath. Denies: Wheezing, Cough, Sputum Cardiovascular: Reports: Dyspnea on Exertion. Denies: Chest Pain, Palpitations GI/Abdominal: Reports: Abdominal Pain, Diarrhea (5 loose stools this morning), Nausea, Vomiting : Reports: No Symptoms Musculoskeletal: Reports: No Symptoms Skin: Reports: Wound (Surgical wound) Neurological: Reports: No Symptoms ED EXAM, GENERAL - Physical Exam Exam: See Below Exam Limited By: No Limitations General Appearance: Alert, WD/WN, No Apparent Distress Eye Exam: Bilateral Eye: Normal Inspection Throat/Mouth: No Airway Compromise Head: Atraumatic, Normocephalic Neck: Normal Inspection, Supple, Non-Tender, Full Range of Motion Respiratory/Chest: No Respiratory Distress, Lungs Clear, Normal Breath Sounds, No Accessory Muscle Use, Chest Non-Tender, Crackles (Scant crackles in the bases bilaterally) Cardiovascular: Regular Rate, Rhythm, No Murmur GI/Abdominal: Soft, Non-Tender, Other (Surgical wound clean dry and intact) Back Exam: Normal Inspection, Full Range of Motion. No: CVA Tenderness (R), CVA Tenderness (L) Extremities: Normal Inspection, Non-Tender, No Pedal Edema Neurological: Alert, Oriented Course - Vital Signs Last Recorded V/S: Last Vital Signs Temp 99.5 F 02/10/20 17:02 Pulse 105 H 02/10/20 17:02 Resp 18 02/10/20 17:02 BP 131/69 02/10/20 17:02 Pulse Ox 93 L 02/10/20 17:02 - Orders/Labs/Meds Orders: Active Orders 24 hr Category Date Time Status EKG Documentation Completion [RC] ASDIRECTED Care 02/10/20 17:34 Active Abdomen 1V Upright [CR] Stat Exams 02/10/20 18:43 Taken Chest 1V Frontal [CR] Stat Exams 02/10/20 17:33 Taken CLOS DIFFICILE PCR W/REFLEX [RM] Urgent Lab 02/10/20 17:37 Ordered CULTURE BLOOD [BC] Urgent Lab 02/10/20 17:50 Received CULTURE BLOOD [BC] Urgent Lab 02/10/20 17:55 Received CULTURE URINE [RM] Urgent Lab 02/10/20 19:05 Received Lactated Ringers [Ringers, Lactated] 1,000 ml Med 02/10/20 17:35 Active IV BOLUS Sodium Chloride 0.9% [Saline Flush] Med 02/10/20 17:33 Active 10 ml FLUSH ASDIRECTED PRN Blood Culture x2 Reflex Set [OM.PC] Urgent Oth 02/10/20 17:33 Ordered Saline Lock Insert [OM.PC] Stat Oth 02/10/20 17:33 Ordered Severe Sepsis Onset Time [OM.PC] Stat Oth 02/10/20 17:33 Ordered EKG 12 Lead [EK] Stat Ther 02/10/20 17:33 Ordered Medication Orders Lactated Ringer's (Ringers, Lactated) 1,000 mls @ 500 mls/hr IV BOLUS ONE Stop: 02/10/20 19:34 Last Admin: 02/10/20 18:00 Dose: 500 mls/hr Sodium Chloride (Saline Flush) 10 ml FLUSH ASDIRECTED PRN PRN Reason: Keep Vein Open Last Admin: 02/10/20 18:00 Dose: 10 ml Labs: Laboratory Tests 02/10/20 02/10/20 02/10/20 Range/Units 17:55 18:02 18:02 WBC 15.9 H (4.5-11.0) K/uL RBC 4.41 (3.30-5.50) M/uL Hgb 13.1 (12.0-15.0) g/dL Hct 40.0 (36.0-48.0) % MCV 91 (80-98) fL MCH 30 (27-31) pg MCHC 33 (32-36) % Plt Count 401 H (150-400) K/uL Neut % (Auto) 77 H (36-66) % Lymph % (Auto) 11 L (24-44) % [place] % (Auto) 11 H (2-6) % Eos % (Auto) 1 L (2-4) % Baso % (Auto) 0 (0-1) % Sodium 138 L (140-148) mmol/L Potassium 3.9 (3.6-5.2) mmol/L Chloride 102 (100-108) mmol/L Carbon Dioxide 24 (21-32) mmol/L Anion Gap 15.9 H (5.0-14.0) mmol/L BUN 14 D (7-18) mg/dL Creatinine 0.8 (0.6-1.0) mg/dL Est Cr Clr Drug Dosing 54.08 mL/min Estimated GFR (MDRD) > 60 (>60) Glucose 104 (74-106) mg/dL Lactic Acid (0.4-2.0) mmol/L Calcium 8.7 D (8.5-10.1) mg/dL Total Bilirubin 0.5 (0.2-1.0) mg/dL AST 21 (15-37) U/L ALT 28 (12-78) U/L Alkaline Phosphatase 121 H (46-116) U/L Lactate Dehydrogenase (82-234) U/L Troponin I < 0.017 (0.000-0.056) ng/mL C-Reactive Protein 7.14 H (0.0-0.3) mg/dL NT-Pro-B Natriuret Pep (5-125) pg/mL Total Protein 6.8 (6.4-8.2) g/dL Albumin 3.0 L (3.4-5.0) g/dL Globulin 3.8 H (2.3-3.5) g/dL Albumin/Globulin Ratio 0.8 L (1.2-2.2) Lipase 67 L (73-393) U/L Procalcitonin ng/mL Urine Color (YELLOW) Urine Appearance (CLEAR) Urine pH (5.0-8.0) Ur Specific [place] (1.008-1.030) Urine Protein (NEGATIVE) mg/dL Urine Glucose (UA) (NEGATIVE) mg/dL Urine Ketones (NEGATIVE) mg/dL Urine Occult Blood (NEGATIVE) Urine Nitrite (NEGATIVE) Urine Bilirubin (NEGATIVE) Urine Urobilinogen (0.2-1.0) EU/dL Ur Leukocyte Esterase (NEGATIVE) Urine RBC (0-5) Urine WBC (0-5) Ur Epithelial Cells Amorphous Sediment Urine Bacteria Urine Mucus 02/10/20 02/10/20 02/10/20 Range/Units 18:02 18:02 18:02 WBC (4.5-11.0) K/uL RBC (3.30-5.50) M/uL Hgb (12.0-15.0) g/dL Hct (36.0-48.0) % MCV (80-98) fL MCH (27-31) pg MCHC (32-36) % Plt Count (150-400) K/uL Neut % (Auto) (36-66) % Lymph % (Auto) (24-44) % [place] % (Auto) (2-6) % Eos % (Auto) (2-4) % Baso % (Auto) (0-1) % Sodium (140-148) mmol/L Potassium (3.6-5.2) mmol/L Chloride (100-108) mmol/L Carbon Dioxide (21-32) mmol/L Anion Gap (5.0-14.0) mmol/L BUN (7-18) mg/dL Creatinine (0.6-1.0) mg/dL Est Cr Clr Drug Dosing mL/min Estimated GFR (MDRD) (>60) Glucose (74-106) mg/dL Lactic Acid 1.5 (0.4-2.0) mmol/L Calcium (8.5-10.1) mg/dL Total Bilirubin (0.2-1.0) mg/dL AST (15-37) U/L ALT (12-78) U/L Alkaline Phosphatase (46-116) U/L Lactate Dehydrogenase 191 (82-234) U/L Troponin I (0.000-0.056) ng/mL C-Reactive Protein (0.0-0.3) mg/dL NT-Pro-B Natriuret Pep (5-125) pg/mL Total Protein (6.4-8.2) g/dL Albumin (3.4-5.0) g/dL Globulin (2.3-3.5) g/dL Albumin/Globulin Ratio (1.2-2.2) Lipase (73-393) U/L Procalcitonin < 0.05 ng/mL Urine Color (YELLOW) Urine Appearance (CLEAR) Urine pH (5.0-8.0) Ur Specific [place] (1.008-1.030) Urine Protein (NEGATIVE) mg/dL Urine Glucose (UA) (NEGATIVE) mg/dL Urine Ketones (NEGATIVE) mg/dL Urine Occult Blood (NEGATIVE) Urine Nitrite (NEGATIVE) Urine Bilirubin (NEGATIVE) Urine Urobilinogen (0.2-1.0) EU/dL Ur Leukocyte Esterase (NEGATIVE) Urine RBC (0-5) Urine WBC (0-5) Ur Epithelial Cells Amorphous Sediment Urine Bacteria Urine Mucus 02/10/20 02/10/20 Range/Units 18:26 18:48 WBC (4.5-11.0) K/uL RBC (3.30-5.50) M/uL Hgb (12.0-15.0) g/dL Hct (36.0-48.0) % MCV (80-98) fL MCH (27-31) pg MCHC (32-36) % Plt Count (150-400) K/uL Neut % (Auto) (36-66) % Lymph % (Auto) (24-44) % [place] % (Auto) (2-6) % Eos % (Auto) (2-4) % Baso % (Auto) (0-1) % Sodium (140-148) mmol/L Potassium (3.6-5.2) mmol/L Chloride (100-108) mmol/L Carbon Dioxide (21-32) mmol/L Anion Gap (5.0-14.0) mmol/L BUN (7-18) mg/dL Creatinine (0.6-1.0) mg/dL Est Cr Clr Drug Dosing mL/min Estimated GFR (MDRD) (>60) Glucose (74-106) mg/dL Lactic Acid (0.4-2.0) mmol/L Calcium (8.5-10.1) mg/dL Total Bilirubin (0.2-1.0) mg/dL AST (15-37) U/L ALT (12-78) U/L Alkaline Phosphatase (46-116) U/L Lactate Dehydrogenase (82-234) U/L Troponin I (0.000-0.056) ng/mL C-Reactive Protein (0.0-0.3) mg/dL NT-Pro-B Natriuret Pep 100 (5-125) pg/mL Total Protein (6.4-8.2) g/dL Albumin (3.4-5.0) g/dL Globulin (2.3-3.5) g/dL Albumin/Globulin Ratio (1.2-2.2) Lipase (73-393) U/L Procalcitonin ng/mL Urine Color Yellow (YELLOW) Urine Appearance Slightly cloudy A (CLEAR) Urine pH 6.0 (5.0-8.0) Ur Specific [place] >= 1.030 (1.008-1.030) Urine Protein Negative (NEGATIVE) mg/dL Urine Glucose (UA) Negative (NEGATIVE) mg/dL Urine Ketones Negative (NEGATIVE) mg/dL Urine Occult Blood Small H (NEGATIVE) Urine Nitrite Positive H (NEGATIVE) Urine Bilirubin Negative (NEGATIVE) Urine Urobilinogen 0.2 (0.2-1.0) EU/dL Ur Leukocyte Esterase Negative (NEGATIVE) Urine RBC 5-10 H (0-5) Urine WBC 30-40 H (0-5) Ur Epithelial Cells Many Amorphous Sediment Not seen Urine Bacteria Many Urine Mucus Not seen Meds: Medications Generic Name Dose Route Start Last Admin Trade Name Freq PRN Reason Stop Dose Admin Lactated Ringer's 1,000 mls @ 500 mls/hr 02/10/20 17:35 02/10/20 18:00 Ringers, Lactated IV 02/10/20 19:34 500 mls/hr BOLUS ONE Administration Sodium Chloride 10 ml 02/10/20 17:33 02/10/20 18:00 Saline Flush FLUSH 10 ml ASDIRECTED PRN Administration Keep Vein Open Discontinued Medications Generic Name Dose Route Start Last Admin Trade Name Freq PRN Reason Stop Dose Admin Hydromorphone HCl 1 mg 02/10/20 17:39 02/10/20 17:59 Dilaudid IVPUSH 02/10/20 17:40 1 mg ONETIME ONE Administration Morphine Sulfate 2 mg 02/10/20 17:35 02/10/20 18:47 Morphine IVPUSH 02/10/20 17:36 Not Given ONETIME ONE Ondansetron HCl 4 mg 02/10/20 17:36 02/10/20 17:59 Zofran IVPUSH 02/10/20 17:37 4 mg ONETIME ONE Administration Departure - Departure Time of Disposition: 19:31 Disposition: Admitted As Inpatient 67 Condition: Fair Clinical Impression: Weakness UTI (urinary tract infection) Qualifiers: Urinary tract infection type: acute cystitis Hematuria presence: with hematuria Qualified Code(s): N30.01 - Acute cystitis with hematuria - Discharge Information Referrals: Aaron Sahu MD [Primary Care Provider] - Forms: ED Department Discharge Sepsis Event Note - Evaluation Sepsis Screening Result: No Definite Risk - Focused Exam Vital Signs: Vital Signs Temp Pulse Resp BP Pulse Ox 02/10/20 17:02 99.5 F 105 H 18 131/69 93 L 02/10/20 16:59 99.5 F 105 H 18 131/69 93 L Date Exam was Performed: 02/10/20 Time Exam was Performed: 19:29 - My Orders Last 24 Hours: My Active Orders 02/10/20 17:33 Chest 1V Frontal [CR] Stat Sodium Chloride 0.9% [Saline Flush] 10 ml FLUSH ASDIRECTED PRN Blood Culture x2 Reflex Set [OM.PC] Urgent Saline Lock Insert [OM.PC] Stat Severe Sepsis Onset Time [OM.PC] Stat EKG 12 Lead [EK] Stat 02/10/20 17:34 EKG Documentation Completion [RC] ASDIRECTED 02/10/20 17:35 Lactated Ringers [Ringers, Lactated] 1,000 ml IV BOLUS 02/10/20 17:37 CLOS DIFFICILE PCR W/REFLEX [RM] Urgent 02/10/20 17:50 CULTURE BLOOD [BC] Urgent 02/10/20 17:55 CULTURE BLOOD [BC] Urgent 02/10/20 18:43 Abdomen 1V Upright [CR] Stat 02/10/20 19:05 CULTURE URINE [RM] Urgent - Assessment/Plan Last 24 Hours: My Active Orders 02/10/20 17:33 Chest 1V Frontal [CR] Stat Sodium Chloride 0.9% [Saline Flush] 10 ml FLUSH ASDIRECTED PRN Blood Culture x2 Reflex Set [OM.PC] Urgent Saline Lock Insert [OM.PC] Stat Severe Sepsis Onset Time [OM.PC] Stat EKG 12 Lead [EK] Stat 02/10/20 17:34 EKG Documentation Completion [RC] ASDIRECTED 02/10/20 17:35 Lactated Ringers [Ringers, Lactated] 1,000 ml IV BOLUS 02/10/20 17:37 CLOS DIFFICILE PCR W/REFLEX [RM] Urgent 02/10/20 17:50 CULTURE BLOOD [BC] Urgent 02/10/20 17:55 CULTURE BLOOD [BC] Urgent 02/10/20 18:43 Abdomen 1V Upright [CR] Stat 02/10/20 19:05 CULTURE URINE [RM] Urgent Plan: Assessment Acuity = acute Site and laterality = urinary tract infection Etiology = probable bacterial cause Manifestations = weakness Location of injury = Home Lab values = WBC elevated 15.9 consistent leukocytosis troponin was negative CRP elevated 7.14 LDH normal 191 procalcitonin not measurable urinalysis positive for nitrates 5-10 RBCs consistent with hematuria 30-40 WBCs consistent with pyuria with many bacteria cultures pending chest x-ray and abdominal film showed no acute process official read radiologist pending. Plan Call discussed case with hospitalist on-call at 1930 can agreed to come and evaluate the patient emergency department for admission, because of her history of C. difficile recommend antibiotics of nitrofurantoin which should be low risk for C. difficile reinfection culture will be available in 3 days This note was dictated using [employer] voice recognition software please call with any questions on syntax or grammar.
--- NOTE | 2020-02-10 21:43 | PCM.HP.2 ---
H&P History of Present Illness - General Date of Service: 02/10/20 Admit Problem/Dx: Admission Diagnosis/Problem Admission Diagnosis/Problem Urinary tract infection Source of Information: Patient, Provider, RN History Limitations: Reports: No Limitations - History of Present Illness Initial Comments - Free Text/Narative: chief complaint: abdominal pain. can't pee 74-year-old female presents emergency department a complaint of increasing abdominal pain she is also developed a sore throat had fevers at home she feels short of breath. She is postop 2 weeks hernia repair with midline laparotomy she states she was evaluated by her primary surgeon yesterday told she had fluid on her lungs and was given Lasix and potassium. She states she still feels short of breath was told she had fever today did not realize she had fever. She has not had any exposures she did receive an influenza shot this year no sick contacts no travel out of her home has been homebound Lower Abdomen Onset of Symptoms: Reports: Gradual Location: Reports: Abdomen Quality: Reports: Other (unable to pee. reports had surgery 14 days ago, went home, then about 4 days ago felt worse.) Improves with: Reports: None Worsens with: Reports: Movement Context: Reports: Other (bladder symptoms for 4 days) Associated Symptoms: Reports: Chest Pain, Cough, Fever/Chills (fever 101.3 today ), Malaise, Weakness Lower Abdomen Pain Score (Numeric/FACES): 5 - Related Data Allergies/Adverse Reactions: Allergies Allergy/AdvReac Type Severity Reaction Status Date / Time Latex, Natural Rubber Allergy Rash Verified 02/10/20 16:58 niacin Allergy Cannot Verified 02/10/20 16:58 Remember Sulfa (Sulfonamide Allergy Difficulty Verified 02/10/20 16:58 Antibiotics) Breathing ceftriaxone [From Rocephin] AdvReac Diarrhea Verified 02/10/20 16:58 ciprofloxacin AdvReac Nausea Verified 02/10/20 16:58 meperidine HCl [From Demerol] AdvReac Nausea and Verified 02/10/20 16:58 Vomiting morphine AdvReac Nausea Verified 02/10/20 16:58 nitrofurantoin AdvReac Nausea Verified 02/10/20 16:58 [From Macrobid] nitrofurantoin AdvReac Nausea Verified 02/10/20 16:58 macrocrystalline [From Macrobid] tetracycline [Tetracycline] AdvReac Nausea Verified 02/10/20 16:58 Home Medications: Home Meds Nitroglycerin [Nitrostat] 0.4 mg SL ASDIRECTED PRN 06/18/16 [History] Tumeric 538 mg PO DAILY 06/18/16 [History] Cholecalciferol (Vitamin D3) [Vitamin D3] 2,000 unit PO DAILY 01/26/20 [History] Clopidogrel Bisulfate [Clopidogrel] 75 mg PO DAILY 01/26/20 [History] atorvaSTATin [Lipitor] 40 mg PO BEDTIME 01/26/20 [History] Acetaminophen [Tylenol] 650 mg PO Q6H tablet 02/03/20 [Rx] HYDROmorphone [Dilaudid] 2 mg PO Q4H PRN #42 tablet 02/03/20 [Rx] Furosemide [Lasix] 20 mg PO DAILY 02/10/20 [History] Potassium Chloride [Klor-Con M20] 20 meq PO DAILY 02/10/20 [History] Past Medical History HEENT History: Reports: Impaired Vision Cardiovascular History: Reports: Angina, Arrhythmia, CAD, High Cholesterol, Stents, Other (See Below) Other Cardiovascular History: mitro valve prolaps Respiratory History: Reports: Sleep Apnea Gastrointestinal History: Reports: Colon Polyp, GERD, Hiatal Hernia Genitourinary History: Reports: None SEED ANALYST History: Reports: Musculoskeletal History: Reports: Fracture Other Musculoskeletal History: right knee pain and swellling Neurological History: Reports: Concussion Psychiatric History: Reports: None Endocrine/Metabolic History: Reports: Osteoporosis Hematologic History: Reports: None Immunologic History: Reports: None Oncologic (Cancer) History: Reports: None Dermatologic History: Reports: None - Infectious Disease History Infectious Disease History: Reports: C-Difficile - Past Surgical History Head Surgeries/Procedures: Reports: None HEENT Surgical History: Reports: Other (See Below) Other HEENT Surgeries/Procedures: nasal surgery for sleep apnea Cardiovascular Surgical History: Reports: Coronary Artery Stent Respiratory Surgical History: Reports: None GI Surgical History: Reports: Appendectomy, Cholecystectomy, Colonoscopy, EGD, Hernia Repair/Other, Other (See Below) Other GI Surgeries/Procedures: abd. surgery for stomach on ride side of body Female Surgical History: Reports: Hysterectomy, Salpingo-Oophorectomy Endocrine Surgical History: Reports: None Neurological Surgical History: Reports: None Musculoskeletal Surgical History: Reports: None Dermatological Surgical History: Reports: None Social & Family History - Family History Cardiac: Reports: CAD - Tobacco Use Smoking Status *Q: Never Smoker Second Hand Smoke Exposure: No - Caffeine Use Caffeine Use: Reports: Coffee - Recreational Drug Use Recreational Drug Use: No - Living Situation & Occupation Living situation: Reports: (l[place]. Has 4 grown children.) H&P Review of Systems - Review of Systems: Review Of Systems: See Below General: Reports: Fever, Chills, Weakness, Fatigue, Decreased Appetite (last meal of small amount of pasta for lunch.) HEENT: Reports: Glasses Pulmonary: Reports: Shortness of Breath, Cough Cardiovascular: Reports: Dyspnea on Exertion Gastrointestinal: Reports: Abdominal Pain (hernia repair 14 days ago), Diarrhea (reports diarrhea 4 to 5 times ), Nausea Genitourinary: Reports: Dysuria, Frequency, Retention Musculoskeletal: Reports: No Symptoms Skin: Reports: Other (mid-line abdominal incision from hernia repair 14 days ago.) Psychiatric: Reports: No Symptoms Neurological: Reports: No Symptoms Hematologic/Lymphatic: Reports: No Symptoms Immunologic: Reports: No Symptoms Exam - Exam Exam: See Below - Vital Signs Vital Signs: Last Vital Signs Temp 37.5 C 02/10/20 17:02 Pulse 91 02/10/20 21:37 Resp 16 02/10/20 19:35 BP 121/69 02/10/20 21:37 Pulse Ox 92 L 02/10/20 20:43 Weight: 68.946 kg - Exam Quality Assessment: DVT Prophylaxis General: Alert, Oriented, Cooperative, Mild Distress HEENT: PERRLA, Hearing Intact, Mucosa Moist & [place], Nares Patent, Normal Nasal Septum, Posterior Pharynx Clear, Conjunctiva Clear, EOMI, EACs Clear, TMs Clear Neck: Supple, Trachea Midline, 2 Lungs: Clear to Auscultation, Normal Respiratory Effort Cardiovascular: Regular Rate, Regular Rhythm GI/Abdominal Exam: Normal Bowel Sounds, Soft, Other (abdominal binder in place) (Female) Exam: Deferred Rectal (Female) Exam: Deferred Back Exam: Normal Inspection, Full Range of Motion Extremities: Normal Inspection, Normal Range of Motion, Non-Tender, No Pedal Edema, Normal Capillary Refill Peripheral Pulses: 2+: Radial (L), Radial (R), Posterior Tibial (L), Posterior Tibial (R) Skin: Warm, Dry, Other (abdominal binder in place. no drainage. ) Neurological: Cranial Nerves Intact, Reflexes Equal Bilateral Neuro Extensive - Mental Status: Alert, Oriented x3, Normal Mood/Affect, Normal Cognition Neuro Extensive - Motor, Sensory, Reflexes: CN II-XII Intact, Normal Gait, Normal Reflexes Psychiatric: Alert, Normal Affect, Normal Mood - Patient Data Lab Results Last 24 hrs: Laboratory Results - last 24 hr 02/10/20 02/10/20 02/10/20 Range/Units 17:55 18:02 18:02 WBC 15.9 H (4.5-11.0) K/uL RBC 4.41 (3.30-5.50) M/uL Hgb 13.1 (12.0-15.0) g/dL Hct 40.0 (36.0-48.0) % MCV 91 (80-98) fL MCH 30 (27-31) pg MCHC 33 (32-36) % Plt Count 401 H (150-400) K/uL Neut % (Auto) 77 H (36-66) % Lymph % (Auto) 11 L (24-44) % [place] % (Auto) 11 H (2-6) % Eos % (Auto) 1 L (2-4) % Baso % (Auto) 0 (0-1) % Sodium 138 L (140-148) mmol/L Potassium 3.9 (3.6-5.2) mmol/L Chloride 102 (100-108) mmol/L Carbon Dioxide 24 (21-32) mmol/L Anion Gap 15.9 H (5.0-14.0) mmol/L BUN 14 D (7-18) mg/dL Creatinine 0.8 (0.6-1.0) mg/dL Est Cr Clr Drug Dosing 54.08 mL/min Estimated GFR (MDRD) > 60 (>60) Glucose 104 (74-106) mg/dL Lactic Acid (0.4-2.0) mmol/L Calcium 8.7 D (8.5-10.1) mg/dL Total Bilirubin 0.5 (0.2-1.0) mg/dL AST 21 (15-37) U/L ALT 28 (12-78) U/L Alkaline Phosphatase 121 H (46-116) U/L Lactate Dehydrogenase (82-234) U/L Troponin I < 0.017 (0.000-0.056) ng/mL C-Reactive Protein 7.14 H (0.0-0.3) mg/dL NT-Pro-B Natriuret Pep (5-125) pg/mL Total Protein 6.8 (6.4-8.2) g/dL Albumin 3.0 L (3.4-5.0) g/dL Globulin 3.8 H (2.3-3.5) g/dL Albumin/Globulin Ratio 0.8 L (1.2-2.2) Lipase 67 L (73-393) U/L Procalcitonin ng/mL Urine Color (YELLOW) Urine Appearance (CLEAR) Urine pH (5.0-8.0) Ur Specific [place] (1.008-1.030) Urine Protein (NEGATIVE) mg/dL Urine Glucose (UA) (NEGATIVE) mg/dL Urine Ketones (NEGATIVE) mg/dL Urine Occult Blood (NEGATIVE) Urine Nitrite (NEGATIVE) Urine Bilirubin (NEGATIVE) Urine Urobilinogen (0.2-1.0) EU/dL Ur Leukocyte Esterase (NEGATIVE) Urine RBC (0-5) Urine WBC (0-5) Ur Epithelial Cells Amorphous Sediment Urine Bacteria Urine Mucus 02/10/20 02/10/20 02/10/20 Range/Units 18:02 18:02 18:02 WBC (4.5-11.0) K/uL RBC (3.30-5.50) M/uL Hgb (12.0-15.0) g/dL Hct (36.0-48.0) % MCV (80-98) fL MCH (27-31) pg MCHC (32-36) % Plt Count (150-400) K/uL Neut % (Auto) (36-66) % Lymph % (Auto) (24-44) % [place] % (Auto) (2-6) % Eos % (Auto) (2-4) % Baso % (Auto) (0-1) % Sodium (140-148) mmol/L Potassium (3.6-5.2) mmol/L Chloride (100-108) mmol/L Carbon Dioxide (21-32) mmol/L Anion Gap (5.0-14.0) mmol/L BUN (7-18) mg/dL Creatinine (0.6-1.0) mg/dL Est Cr Clr Drug Dosing mL/min Estimated GFR (MDRD) (>60) Glucose (74-106) mg/dL Lactic Acid 1.5 (0.4-2.0) mmol/L Calcium (8.5-10.1) mg/dL Total Bilirubin (0.2-1.0) mg/dL AST (15-37) U/L ALT (12-78) U/L Alkaline Phosphatase (46-116) U/L Lactate Dehydrogenase 191 (82-234) U/L Troponin I (0.000-0.056) ng/mL C-Reactive Protein (0.0-0.3) mg/dL NT-Pro-B Natriuret Pep (5-125) pg/mL Total Protein (6.4-8.2) g/dL Albumin (3.4-5.0) g/dL Globulin (2.3-3.5) g/dL Albumin/Globulin Ratio (1.2-2.2) Lipase (73-393) U/L Procalcitonin < 0.05 ng/mL Urine Color (YELLOW) Urine Appearance (CLEAR) Urine pH (5.0-8.0) Ur Specific [place] (1.008-1.030) Urine Protein (NEGATIVE) mg/dL Urine Glucose (UA) (NEGATIVE) mg/dL Urine Ketones (NEGATIVE) mg/dL Urine Occult Blood (NEGATIVE) Urine Nitrite (NEGATIVE) Urine Bilirubin (NEGATIVE) Urine Urobilinogen (0.2-1.0) EU/dL Ur Leukocyte Esterase (NEGATIVE) Urine RBC (0-5) Urine WBC (0-5) Ur Epithelial Cells Amorphous Sediment Urine Bacteria Urine Mucus 02/10/20 02/10/20 Range/Units 18:26 18:48 WBC (4.5-11.0) K/uL RBC (3.30-5.50) M/uL Hgb (12.0-15.0) g/dL Hct (36.0-48.0) % MCV (80-98) fL MCH (27-31) pg MCHC (32-36) % Plt Count (150-400) K/uL Neut % (Auto) (36-66) % Lymph % (Auto) (24-44) % [place] % (Auto) (2-6) % Eos % (Auto) (2-4) % Baso % (Auto) (0-1) % Sodium (140-148) mmol/L Potassium (3.6-5.2) mmol/L Chloride (100-108) mmol/L Carbon Dioxide (21-32) mmol/L Anion Gap (5.0-14.0) mmol/L BUN (7-18) mg/dL Creatinine (0.6-1.0) mg/dL Est Cr Clr Drug Dosing mL/min Estimated GFR (MDRD) (>60) Glucose (74-106) mg/dL Lactic Acid (0.4-2.0) mmol/L Calcium (8.5-10.1) mg/dL Total Bilirubin (0.2-1.0) mg/dL AST (15-37) U/L ALT (12-78) U/L Alkaline Phosphatase (46-116) U/L Lactate Dehydrogenase (82-234) U/L Troponin I (0.000-0.056) ng/mL C-Reactive Protein (0.0-0.3) mg/dL NT-Pro-B Natriuret Pep 100 (5-125) pg/mL Total Protein (6.4-8.2) g/dL Albumin (3.4-5.0) g/dL Globulin (2.3-3.5) g/dL Albumin/Globulin Ratio (1.2-2.2) Lipase (73-393) U/L Procalcitonin ng/mL Urine Color Yellow (YELLOW) Urine Appearance Slightly cloudy A (CLEAR) Urine pH 6.0 (5.0-8.0) Ur Specific [place] >= 1.030 (1.008-1.030) Urine Protein Negative (NEGATIVE) mg/dL Urine Glucose (UA) Negative (NEGATIVE) mg/dL Urine Ketones Negative (NEGATIVE) mg/dL Urine Occult Blood Small H (NEGATIVE) Urine Nitrite Positive H (NEGATIVE) Urine Bilirubin Negative (NEGATIVE) Urine Urobilinogen 0.2 (0.2-1.0) EU/dL Ur Leukocyte Esterase Negative (NEGATIVE) Urine RBC 5-10 H (0-5) Urine WBC 30-40 H (0-5) Ur Epithelial Cells Many Amorphous Sediment Not seen Urine Bacteria Many Urine Mucus Not seen Result Diagrams: 02/10/20 17:55 02/10/20 18:02 Sepsis Event Note - Evaluation Sepsis Screening Result: No Definite Risk - Focused Exam Vital Signs: Vital Signs Temp Pulse Resp BP Pulse Ox 02/10/20 21:37 91 121/69 02/10/20 20:43 96 124/64 92 L 02/10/20 20:02 94 123/59 L 94 L 02/10/20 19:35 91 16 123/67 92 L 02/10/20 18:24 91 122/72 02/10/20 17:54 97 118/77 92 L 02/10/20 17:25 103 H 132/74 02/10/20 17:02 37.5 C 105 H 18 131/69 93 L 02/10/20 16:59 37.5 C 105 H 18 131/69 93 L Date Exam was Performed: 02/10/20 Time Exam was Performed: 22:27 - Problem List (1) UTI (urinary tract infection) SNOMED Code(s): 58600873 ICD Code: N39.0 - URINARY TRACT INFECTION, SITE NOT SPECIFIED Status: Acute Priority: High Current Visit: Yes Qualifiers: Urinary tract infection type: acute cystitis Hematuria presence: with hematuria Qualified Code(s): N30.01 - Acute cystitis with hematuria (2) Status post hernia repair SNOMED Code(s): 05293431538301, 29856644317140 ICD Code: Z98.890 - OTHER SPECIFIED POSTPROCEDURAL STATES; Z87.19 - PERSONAL HISTORY OF OTHER DISEASES OF THE DIGESTIVE SYSTEM Status: Acute Priority: Low Current Visit: No Problem Details: Incarcerated, With interceed mesh x 2 , (3) CAD (coronary artery disease) SNOMED Code(s): 38397114 ICD Code: I25.10 - ATHSCL HEART DISEASE OF [place] CORONARY ARTERY W/O ANG PCTRS Status: Chronic Priority: Low Current Visit: No Problem List Initiated/Reviewed/Updated: Yes Orders Last 24hrs: Active Orders 24 hr Category Date Time Status Patient Status Manage Transfer [TRANSFER] Routine ADT 02/10/20 21:16 Active EKG Documentation Completion [RC] ASDIRECTED Care 02/10/20 17:34 Active Abdomen 1V Upright [CR] Stat Exams 02/10/20 18:43 Taken Chest 1V Frontal [CR] Stat Exams 02/10/20 17:33 Taken CLOS DIFFICILE PCR W/REFLEX [RM] Urgent Lab 02/10/20 17:37 Ordered CULTURE BLOOD [BC] Urgent Lab 02/10/20 17:50 Received CULTURE BLOOD [BC] Urgent Lab 02/10/20 17:55 Received CULTURE URINE [RM] Urgent Lab 02/10/20 19:05 Received Sodium Chloride 0.9% [Saline Flush] Med 02/10/20 17:33 Active 10 ml FLUSH ASDIRECTED PRN Blood Culture x2 Reflex Set [OM.PC] Urgent Oth 02/10/20 17:33 Ordered Saline Lock Insert [OM.PC] Stat Oth 02/10/20 17:33 Ordered Severe Sepsis Onset Time [OM.PC] Stat Oth 02/10/20 17:33 Ordered Resuscitation Status Routine Resus Stat 02/10/20 21:17 Ordered EKG 12 Lead [EK] Stat Ther 02/10/20 17:33 Ordered Medication Orders Sodium Chloride (Saline Flush) 10 ml FLUSH ASDIRECTED PRN PRN Reason: Keep Vein Open Last Admin: 02/10/20 18:00 Dose: 10 ml Assessment/Plan Comment:: ASSESSMENT AND PLAN OF CARE. 74-year-old female presents emergency department a complaint of increasing abdominal pain she is also developed a sore throat had fevers at home she feels short of breath. She is postop 2 weeks hernia repair with midline laparotomy she states she was evaluated by her primary surgeon yesterday told she had fluid on her lungs and was given Lasix and potassium. She states she still feels short of breath was told she had fever today did not realize she had fever. She has not had any exposures she did receive an influenza shot this year no sick contacts no travel out of her home has been homebound Lower Abdomen Plan: Assessment Acuity = acute Site and laterality = urinary tract infection Etiology = probable bacterial cause Manifestations = weakness Location of injury = Home Lab values = WBC elevated 15.9 consistent leukocytosis troponin was negative CRP elevated 7.14 LDH normal 191 procalcitonin not measurable urinalysis positive for nitrates 5-10 RBCs consistent with hematuria 30-40 WBCs consistent with pyuria with many bacteria cultures pending chest x-ray and abdominal film showed no acute process official read radiologist pending. Plan Call discussed case with hospitalist on-call at 1930 can agreed to come and evaluate the patient emergency department for admission, because of her history of C. difficile recommend antibiotics of nitrofurantoin which should be low risk for C. difficile reinfection culture will be available in 3 days. Urinary Tract Infection -IV Rocephin 1 gram every 24 hours -IV Fluids Normal Saline 125ml/hr -urine culture pending -am labs CBC, BMP S/P Hernia 01-27-2020 at [place], [place]. , still has pain in abdomen. has Dilaudid po every 4 hours for pain control. reports since being home has been weak and not able to do much housework. Request assistance at home for meals and house work. -IV or PO narcotic pain medication as needed for abdominal pain. -abdominal binder in place -daily wound care -consult to implementation manager for home care services. CAD -continue outpatient medications. MAINTENANCE ISSUES -DVT prophylaxis; Lovenox 40 mg subcut daily -GI prophylaxis; PPI therapy -Boss catheter; not indicated -Nutrition; consistent- regular diet -Nicotine dependence; not required -consult to implementation manager for home care services. CODE STATUS-FULL CODE ADMISSION STATUS-patient will be admitted to Inpatient status, expect at least a 2 night hospital stay for evaluation and management of problems as outlined above. At the time of this admission I do not reasonably expected evaluation and management of this problem will require more than a 96 hour hospital stay. DISPOSITION-anticipate discharge to home after the hospital stay. PRIMARY CARE PROVIDER- Dr. Sahu, [facility] HOSPITALIST - Dr. Taylor - Mortality Measure Prognosis:: Good
[2020-02-10] MEDS ORDERED: Ondansetron 4 MG Tab.DIS PO PRN (21:56)
[2020-02-10] MEDS ORDERED: Albuterol/Ipratropium 3.0-0.5 MG/3 ML Neb Soln NEB PRN (21:56)
[2020-02-10] MEDS ORDERED: Albuterol 0.083% 2.5 MG/3 ML Neb Soln NEB PRN (21:56)
[2020-02-10] MEDS ORDERED: Acetaminophen 325 MG Tab PO PRN (21:56)
[2020-02-10] MEDS ORDERED: Ondansetron 4 MG/2 ML SDV IV PRN (21:56)
[2020-02-10] MEDS ORDERED: Acetaminophen 325 MG Tab PO SCH (21:56)
[2020-02-10] MEDS ORDERED: Nitroglycerin 0.4 MG Tab.SL SL PRN (21:56)
[2020-02-10] MEDS ORDERED: Pantoprazole 40 MG Vial IV SCH (22:00)
[2020-02-10] MEDS: Sodium Chloride 0.9% 1,000 ML IV SCH (22:08)
[2020-02-10] MEDS: Acetaminophen 325 MG Tab PO SCH (22:34)
[2020-02-10] MEDS: Furosemide 20 MG Tab PO SCH (22:35)
[2020-02-10] MEDS: atorvaSTATin 20 MG Tab PO SCH (22:35)
[2020-02-10] MEDS: Clopidogrel 75 MG Tab PO SCH (22:43)
[2020-02-10] MEDS: cefTRIAXone 1 GM in Sodium Chloride 0.9% 50 ML IV SCH (22:43)
[2020-02-10] MEDS: HYDROmorphone 2 MG Tab PO PRN (22:53)
[2020-02-11] MEDS: Acetaminophen 325 MG Tab PO SCH ×4 (03:25→21:03)
[2020-02-11] MEDS: HYDROmorphone 2 MG Tab PO PRN ×3 (05:07→22:31)
[2020-02-11] MEDS: Sodium Chloride 0.9% 1,000 ML IV SCH (05:08)
[2020-02-11] MEDS: Lactobacillus Rhamnosus GG (Probiotic) Cap PO SCH ×2 (08:31→21:04)
[2020-02-11] MEDS: Furosemide 20 MG Tab PO SCH (08:31)
[2020-02-11] MEDS: Clopidogrel 75 MG Tab PO SCH (08:31)
[2020-02-11] MEDS: Enoxaparin 40 MG/0.4 ML Syringe SUBCUT SCH (08:32)
[2020-02-11] MEDS: Pantoprazole 40 MG Tab.CR PO SCH ×2 (08:32→16:28)
[2020-02-11] MEDS ORDERED: Potassium Chloride 20 MEQ Tab.ER PO SCH (09:00)
--- NOTE | 2020-02-11 09:23 | PCM.PN ---
- General Info Date of Service: 02/11/20 Subjective Update: Ms. Blandon is a 74-year-old woman who was admitted through the emergency department last night with urinary tract infection and weakness. She has not felt significantly improved since admission, currently experiencing headache with ongoing symptoms of weakness. Functional Status: Reports: Tolerating Diet, Ambulating, Urinating - Review of Systems General: Reports: Weakness. Denies: Fever, Chills HEENT: Reports: Headaches Pulmonary: Reports: No Symptoms Cardiovascular: Reports: No Symptoms Gastrointestinal: Reports: No Symptoms - Patient Data Vitals - Most Recent: Last Vital Signs Temp 96.9 F 02/11/20 07:03 Pulse 79 02/11/20 07:03 Resp 16 02/11/20 07:03 BP 111/64 02/11/20 07:03 Pulse Ox 95 02/11/20 07:03 Weight - Most Recent: 152 lb I&O - Last 24 Hours: Intake & Output 02/10/20 02/11/20 02/11/20 22:59 06:59 14:59 Intake Total 210 813 240 Output Total 975 Balance 210 -162 240 Lab Results Last 24 Hours: Laboratory Results - last 24 hr 02/10/20 02/10/20 02/10/20 Range/Units 17:55 18:02 18:02 WBC 15.9 H (4.5-11.0) K/uL RBC 4.41 (3.30-5.50) M/uL Hgb 13.1 (12.0-15.0) g/dL Hct 40.0 (36.0-48.0) % MCV 91 (80-98) fL MCH 30 (27-31) pg MCHC 33 (32-36) % Plt Count 401 H (150-400) K/uL Neut % (Auto) 77 H (36-66) % Lymph % (Auto) 11 L (24-44) % [place] % (Auto) 11 H (2-6) % Eos % (Auto) 1 L (2-4) % Baso % (Auto) 0 (0-1) % Sodium 138 L (140-148) mmol/L Potassium 3.9 (3.6-5.2) mmol/L Chloride 102 (100-108) mmol/L Carbon Dioxide 24 (21-32) mmol/L Anion Gap 15.9 H (5.0-14.0) mmol/L BUN 14 D (7-18) mg/dL Creatinine 0.8 (0.6-1.0) mg/dL Est Cr Clr Drug Dosing 54.08 mL/min Estimated GFR (MDRD) > 60 (>60) Glucose 104 (74-106) mg/dL Lactic Acid (0.4-2.0) mmol/L Calcium 8.7 D (8.5-10.1) mg/dL Total Bilirubin 0.5 (0.2-1.0) mg/dL AST 21 (15-37) U/L ALT 28 (12-78) U/L Alkaline Phosphatase 121 H (46-116) U/L Lactate Dehydrogenase (82-234) U/L Troponin I < 0.017 (0.000-0.056) ng/mL C-Reactive Protein 7.14 H (0.0-0.3) mg/dL NT-Pro-B Natriuret Pep (5-125) pg/mL Total Protein 6.8 (6.4-8.2) g/dL Albumin 3.0 L (3.4-5.0) g/dL Globulin 3.8 H (2.3-3.5) g/dL Albumin/Globulin Ratio 0.8 L (1.2-2.2) Lipase 67 L (73-393) U/L Procalcitonin ng/mL Urine Color (YELLOW) Urine Appearance (CLEAR) Urine pH (5.0-8.0) Ur Specific [place] (1.008-1.030) Urine Protein (NEGATIVE) mg/dL Urine Glucose (UA) (NEGATIVE) mg/dL Urine Ketones (NEGATIVE) mg/dL Urine Occult Blood (NEGATIVE) Urine Nitrite (NEGATIVE) Urine Bilirubin (NEGATIVE) Urine Urobilinogen (0.2-1.0) EU/dL Ur Leukocyte Esterase (NEGATIVE) Urine RBC (0-5) Urine WBC (0-5) Ur Epithelial Cells Amorphous Sediment Urine Bacteria Urine Mucus 02/10/20 02/10/20 02/10/20 Range/Units 18:02 18:02 18:02 WBC (4.5-11.0) K/uL RBC (3.30-5.50) M/uL Hgb (12.0-15.0) g/dL Hct (36.0-48.0) % MCV (80-98) fL MCH (27-31) pg MCHC (32-36) % Plt Count (150-400) K/uL Neut % (Auto) (36-66) % Lymph % (Auto) (24-44) % [place] % (Auto) (2-6) % Eos % (Auto) (2-4) % Baso % (Auto) (0-1) % Sodium (140-148) mmol/L Potassium (3.6-5.2) mmol/L Chloride (100-108) mmol/L Carbon Dioxide (21-32) mmol/L Anion Gap (5.0-14.0) mmol/L BUN (7-18) mg/dL Creatinine (0.6-1.0) mg/dL Est Cr Clr Drug Dosing mL/min Estimated GFR (MDRD) (>60) Glucose (74-106) mg/dL Lactic Acid 1.5 (0.4-2.0) mmol/L Calcium (8.5-10.1) mg/dL Total Bilirubin (0.2-1.0) mg/dL AST (15-37) U/L ALT (12-78) U/L Alkaline Phosphatase (46-116) U/L Lactate Dehydrogenase 191 (82-234) U/L Troponin I (0.000-0.056) ng/mL C-Reactive Protein (0.0-0.3) mg/dL NT-Pro-B Natriuret Pep (5-125) pg/mL Total Protein (6.4-8.2) g/dL Albumin (3.4-5.0) g/dL Globulin (2.3-3.5) g/dL Albumin/Globulin Ratio (1.2-2.2) Lipase (73-393) U/L Procalcitonin < 0.05 ng/mL Urine Color (YELLOW) Urine Appearance (CLEAR) Urine pH (5.0-8.0) Ur Specific [place] (1.008-1.030) Urine Protein (NEGATIVE) mg/dL Urine Glucose (UA) (NEGATIVE) mg/dL Urine Ketones (NEGATIVE) mg/dL Urine Occult Blood (NEGATIVE) Urine Nitrite (NEGATIVE) Urine Bilirubin (NEGATIVE) Urine Urobilinogen (0.2-1.0) EU/dL Ur Leukocyte Esterase (NEGATIVE) Urine RBC (0-5) Urine WBC (0-5) Ur Epithelial Cells Amorphous Sediment Urine Bacteria Urine Mucus 02/10/20 02/10/20 02/11/20 Range/Units 18:26 18:48 05:30 WBC 13.9 H (4.5-11.0) K/uL RBC 3.88 (3.30-5.50) M/uL Hgb 11.3 L (12.0-15.0) g/dL Hct 35.8 L (36.0-48.0) % MCV 92 (80-98) fL MCH 29 (27-31) pg MCHC 32 (32-36) % Plt Count 349 (150-400) K/uL Neut % (Auto) 75 H (36-66) % Lymph % (Auto) 12 L (24-44) % [place] % (Auto) 12 H (2-6) % Eos % (Auto) 2 (2-4) % Baso % (Auto) 0 (0-1) % Sodium (140-148) mmol/L Potassium (3.6-5.2) mmol/L Chloride (100-108) mmol/L Carbon Dioxide (21-32) mmol/L Anion Gap (5.0-14.0) mmol/L BUN (7-18) mg/dL Creatinine (0.6-1.0) mg/dL Est Cr Clr Drug Dosing mL/min Estimated GFR (MDRD) (>60) Glucose (74-106) mg/dL Lactic Acid (0.4-2.0) mmol/L Calcium (8.5-10.1) mg/dL Total Bilirubin (0.2-1.0) mg/dL AST (15-37) U/L ALT (12-78) U/L Alkaline Phosphatase (46-116) U/L Lactate Dehydrogenase (82-234) U/L Troponin I (0.000-0.056) ng/mL C-Reactive Protein (0.0-0.3) mg/dL NT-Pro-B Natriuret Pep 100 (5-125) pg/mL Total Protein (6.4-8.2) g/dL Albumin (3.4-5.0) g/dL Globulin (2.3-3.5) g/dL Albumin/Globulin Ratio (1.2-2.2) Lipase (73-393) U/L Procalcitonin ng/mL Urine Color Yellow (YELLOW) Urine Appearance Slightly cloudy A (CLEAR) Urine pH 6.0 (5.0-8.0) Ur Specific [place] >= 1.030 (1.008-1.030) Urine Protein Negative (NEGATIVE) mg/dL Urine Glucose (UA) Negative (NEGATIVE) mg/dL Urine Ketones Negative (NEGATIVE) mg/dL Urine Occult Blood Small H (NEGATIVE) Urine Nitrite Positive H (NEGATIVE) Urine Bilirubin Negative (NEGATIVE) Urine Urobilinogen 0.2 (0.2-1.0) EU/dL Ur Leukocyte Esterase Negative (NEGATIVE) Urine RBC 5-10 H (0-5) Urine WBC 30-40 H (0-5) Ur Epithelial Cells Many Amorphous Sediment Not seen Urine Bacteria Many Urine Mucus Not seen 02/11/20 Range/Units 05:30 WBC (4.5-11.0) K/uL RBC (3.30-5.50) M/uL Hgb (12.0-15.0) g/dL Hct (36.0-48.0) % MCV (80-98) fL MCH (27-31) pg MCHC (32-36) % Plt Count (150-400) K/uL Neut % (Auto) (36-66) % Lymph % (Auto) (24-44) % [place] % (Auto) (2-6) % Eos % (Auto) (2-4) % Baso % (Auto) (0-1) % Sodium 138 L (140-148) mmol/L Potassium 3.7 (3.6-5.2) mmol/L Chloride 103 (100-108) mmol/L Carbon Dioxide 26 (21-32) mmol/L Anion Gap 12.7 (5.0-14.0) mmol/L BUN 10 (7-18) mg/dL Creatinine 0.8 (0.6-1.0) mg/dL Est Cr Clr Drug Dosing 54.08 mL/min Estimated GFR (MDRD) > 60 (>60) Glucose 102 (74-106) mg/dL Lactic Acid (0.4-2.0) mmol/L Calcium 8.0 L (8.5-10.1) mg/dL Total Bilirubin (0.2-1.0) mg/dL AST (15-37) U/L ALT (12-78) U/L Alkaline Phosphatase (46-116) U/L Lactate Dehydrogenase (82-234) U/L Troponin I (0.000-0.056) ng/mL C-Reactive Protein (0.0-0.3) mg/dL NT-Pro-B Natriuret Pep (5-125) pg/mL Total Protein (6.4-8.2) g/dL Albumin (3.4-5.0) g/dL Globulin (2.3-3.5) g/dL Albumin/Globulin Ratio (1.2-2.2) Lipase (73-393) U/L Procalcitonin ng/mL Urine Color (YELLOW) Urine Appearance (CLEAR) Urine pH (5.0-8.0) Ur Specific [place] (1.008-1.030) Urine Protein (NEGATIVE) mg/dL Urine Glucose (UA) (NEGATIVE) mg/dL Urine Ketones (NEGATIVE) mg/dL Urine Occult Blood (NEGATIVE) Urine Nitrite (NEGATIVE) Urine Bilirubin (NEGATIVE) Urine Urobilinogen (0.2-1.0) EU/dL Ur Leukocyte Esterase (NEGATIVE) Urine RBC (0-5) Urine WBC (0-5) Ur Epithelial Cells Amorphous Sediment Urine Bacteria Urine Mucus Arthur Results Last 24 Hours: Microbiology 02/10/20 19:05 Urine Culture - Preliminary Urine, Clean Catch Med Orders - Current: Current Medications Acetaminophen (Tylenol) 650 mg PO Q4H PRN PRN Reason: Pain (Mild 1-3)/fever Acetaminophen (Tylenol) 650 mg PO Q6H [facility] Last Admin: 02/11/20 03:25 Dose: 650 mg Albuterol (Proventil Neb Soln) 2.5 mg NEB Q4H PRN PRN Reason: Shortness Of Breath/wheezing Albuterol/Ipratropium (Duoneb 3.0-0.5 Mg/3 Ml) 3 ml NEB QID PRN PRN Reason: Shortness Of Breath/wheezing Atorvastatin Calcium (Lipitor) 40 mg PO BEDTIME [facility] Last Admin: 02/10/20 22:35 Dose: 40 mg Cholecalciferol (Vitamin D3) 50 mcg PO DAILY [facility] Clopidogrel Bisulfate (Plavix) 75 mg PO DAILY [facility] Last Admin: 02/11/20 08:31 Dose: 75 mg Enoxaparin Sodium (Lovenox) 40 mg SUBCUT DAILY [facility] Last Admin: 02/11/20 08:32 Dose: 40 mg Furosemide (Lasix) 20 mg PO DAILY [facility] Last Admin: 02/11/20 08:31 Dose: 20 mg Hydromorphone HCl (Dilaudid) 2 mg PO Q4H PRN PRN Reason: Pain Last Admin: 02/11/20 05:07 Dose: 2 mg Ceftriaxone Sodium 1 gm/ (Sodium Chloride) 50 mls @ 100 mls/hr IV Q24H [facility] Last Admin: 02/10/20 22:43 Dose: 100 mls/hr Lactobacillus Rhamnosus (Culturelle) 1 cap PO BID [facility] Last Admin: 02/11/20 08:31 Dose: 1 cap Nitroglycerin (Nitrostat) 0.4 mg SL ASDIRECTED PRN PRN Reason: Chest Pain Ondansetron HCl (Zofran Odt) 4 mg PO Q6H PRN PRN Reason: Nausea able to take PO Last Admin: 02/10/20 22:34 Dose: 4 mg Ondansetron HCl (Zofran) 4 mg IV Q4H PRN PRN Reason: Nausea/Vomiting Pantoprazole Sodium (Protonix) 40 mg PO BIDAC [facility] Last Admin: 02/11/20 08:32 Dose: 40 mg Potassium Chloride (Potassium Chloride Solution) 20 meq PO DAILY [facility] Discontinued Medications Hydromorphone HCl (Dilaudid) 1 mg IVPUSH ONETIME ONE Stop: 02/10/20 17:40 Last Admin: 02/10/20 17:59 Dose: 1 mg Lactated Ringer's (Ringers, Lactated) 1,000 mls @ 500 mls/hr IV BOLUS ONE Stop: 02/10/20 19:34 Last Admin: 02/10/20 18:00 Dose: 500 mls/hr Sodium Chloride (Normal Saline) 1,000 mls @ 125 mls/hr IV ASDIRECTED [facility] Last Admin: 02/11/20 05:08 Dose: 125 mls/hr Morphine Sulfate (Morphine) 2 mg IVPUSH ONETIME ONE Stop: 02/10/20 17:36 Last Admin: 02/10/20 18:47 Dose: Not Given Ondansetron HCl (Zofran) 4 mg IVPUSH ONETIME ONE Stop: 02/10/20 17:37 Last Admin: 02/10/20 17:59 Dose: 4 mg Pantoprazole Sodium (Protonix Iv) 40 mg IV Q12H [facility] Last Admin: 02/10/20 22:37 Dose: 40 mg Potassium Chloride (Klor-Con M20) 20 meq PO DAILY [facility] Last Admin: 02/11/20 08:31 Dose: 20 meq Sodium Chloride (Saline Flush) 10 ml FLUSH ASDIRECTED PRN PRN Reason: Keep Vein Open Last Admin: 02/10/20 18:00 Dose: 10 ml - Exam General: Alert, Oriented, Cooperative, Moderate Distress Lungs: Clear to Auscultation, Normal Respiratory Effort Cardiovascular: Regular Rate, Regular Rhythm, No Murmurs GI/Abdominal Exam: Soft, Non-Tender, No Organomegaly, No Distention Extremities: Non-Tender, No Pedal Edema Sepsis Event Note - Evaluation Sepsis Screening Result: No Definite Risk - Focused Exam Vital Signs: Vital Signs Temp Temp Pulse Resp BP Pulse Ox 02/11/20 07:03 96.9 F 79 16 111/64 95 02/11/20 03:00 97.7 F 84 16 119/65 94 L 02/10/20 22:34 98.7 F 02/10/20 22:10 98.7 F 86 16 113/54 L 93 L 02/10/20 21:56 93 L 02/10/20 21:37 91 121/69 Date Exam was Performed: 02/11/20 Time Exam was Performed: 09:19 - Problem List Review Problem List Initiated/Reviewed/Updated: Yes - My Orders Last 24 Hours: My Active Orders 02/11/20 09:00 Lactobacillus Rhamnosus GG [Culturelle] 1 cap PO BID 02/11/20 09:15 Convert IV to Saline Lock [OM.PC] Routine 02/11/20 09:16 Discontinue Telemetry Monitoring [Cardiac Monitoring Discontinue] [RC] Click to Edit 02/12/20 05:00 BASIC METABOLIC PANEL,BMP [CHEM] Timed CBC WITH AUTO DIFF [HEME] Timed 02/12/20 09:00 Potassium Chloride [Potassium Chloride Solution] 20 meq PO DAILY - Plan Plan:: ASSESSMENT AND PLAN OF CARE. Urinary Tract Infection -IV Rocephin 1 gram every 24 hours -Saline lock IV -urine culture pending -am labs CBC, BMP S/P Hernia 01-27-2020 repair-still has pain in abdomen, looks good with no evidence of underlying infection -IV or PO narcotic pain medication as needed for abdominal pain. -abdominal binder in place -daily wound care -consult to inventory specialist manager for home care services. CAD-currently asymptomatic -continue outpatient medications. MAINTENANCE ISSUES -DVT prophylaxis; Lovenox 40 mg subcut daily -GI prophylaxis; PPI therapy -Boss catheter; not indicated -Nutrition; consistent- regular diet -Nicotine dependence; not required -consult to inventory specialist manager for home care services. CODE STATUS-FULL CODE ADMISSION STATUS-patient will be admitted to Inpatient status, expect at least a 2 night hospital stay for evaluation and management of problems as outlined above. At the time of this admission I do not reasonably expected evaluation and management of this problem will require more than a 96 hour hospital stay. DISPOSITION-anticipate discharge to home after the hospital stay. PRIMARY CARE PROVIDER- Dr. Sahu, [facility] HOSPITALIST - Dr. Taylor
[2020-02-11] MEDS: Cholecalciferol (Vitamin D3) 25 MCG Tab PO SCH (09:45)
[2020-02-11] MEDS ORDERED: Acetaminophen 325 MG Tab PO PRN (09:47)
--- NOTE | 2020-02-11 09:56 | CR ---
CHEST: Vertebral 02/10/2020 at 1613 p.m. CLINICAL HISTORY:Pain COMPARISON:2007 FINDINGS: There is less than optimal inspiration exaggerating basilar lung markings. Lungs are generally hyperaerated. Heart and pulmonary vascular are normal. There are atherosclerotic changes in the aorta. IMPRESSION: Emphysematous changes Portable duration exaggerates the basal lung markings. No acute cardiopulmonary process. UPRIGHT ABDOMEN Clinical History: Abdominal pain. Patient has had previous abdominal wall surgery for ventral hernia. There is a nonacute small intestinal configuration. There is gas and feces throughout the colon. No free air is seen. IMPRESSION: Previous abdominal surgery Nonacute intestinal gas pattern
[2020-02-11] MEDS: cefTRIAXone 1 GM in Sodium Chloride 0.9% 50 ML IV SCH (21:04)
[2020-02-11] MEDS: atorvaSTATin 20 MG Tab PO SCH (21:04)
[2020-02-12] MEDS: Acetaminophen 325 MG Tab PO SCH ×3 (04:44→16:16)
[2020-02-12] MEDS: HYDROmorphone 2 MG Tab PO PRN (06:58)
[2020-02-12] MEDS: Pantoprazole 40 MG Tab.CR PO SCH ×2 (07:12→16:17)
[2020-02-12] MEDS ORDERED: Potassium Chloride 10% 20 MEQ/15 ML Soln 15 ML UD Cup PO SCH (09:00)
--- NOTE | 2020-02-12 09:35 | PCM.DCSUM1 ---
Discharge Summary - Hospital Course Brief History: Ms. Blandon is a 74-year-old woman who was admitted through the emergency department with weakness secondary to a urinary tract infection. - Discharge Data Discharge Date: 02/12/20 Discharge Disposition: Home, W Home Health Agency 06 Condition: Fair - Referral to Home Health Date of Face to Face Encounter: 02/12/20 Reason for Homebound Status: UTI, Weakness Primary Care Physician: Aaron Sahu MD Skilled Need: Nursing, PT/OT - Discharge Diagnosis/Problem(s) (1) UTI (urinary tract infection) SNOMED Code(s): 52752049 ICD Code: N39.0 - URINARY TRACT INFECTION, SITE NOT SPECIFIED Status: Acute Priority: High Current Visit: Yes Qualifiers: Urinary tract infection type: acute cystitis Hematuria presence: with hematuria Qualified Code(s): N30.01 - Acute cystitis with hematuria (2) Weakness SNOMED Code(s): 45243612 ICD Code: R53.1 - WEAKNESS Status: Acute Current Visit: Yes (3) Status post hernia repair SNOMED Code(s): 41092428865067, 77630662861515 ICD Code: Z98.890 - OTHER SPECIFIED POSTPROCEDURAL STATES; Z87.19 - PERSONAL HISTORY OF OTHER DISEASES OF THE DIGESTIVE SYSTEM Status: Acute Priority: Low Current Visit: No Problem Details: Incarcerated, With interceed mesh x 2 , - Patient Summary/Data Consults: Consultations 02/10/20 21:56 Consult to Case Management/Machinist [employer] [CONS] Routine Comment: Physician Instructions: Service(s) to be Consulted: Case Management Special Instructions: Mrs. Blandon request home health services. needs evaluation and consult Consult to Spiritual Care [CONS] Routine Spiritual Care Follow Up [CONS] Routine Spiritual Resources: [facility] Course: Ms. Blandon is a 74-year-old who presented to the emergency department with a complaint of increasing abdominal pain she is also developed a sore throat had fevers at home she feels short of breath. She is postop 2 weeks hernia repair with midline laparotomy she states she was evaluated by her primary surgeon. She states she still feels short of breath was told she had fever today did not realize she had fever. She has not had any exposures she did receive an influenza shot this year no sick contacts no travel out of her home has been homebound. In the emergency department white blood cell count was noted to be elevated, chest x-ray showed no significant infiltrates. Urinalysis did show evidence of underlying urinary tract infection. She was started on IV antibiotic therapy with ceftriaxone after urine and blood cultures were obtained. Because of her history of diarrhea and previous history of C. difficile colitis stool studies were obtained and were negative for C. difficile. Her abdominal wound was examined and looked clear with no evidence of underlying infection. Blood cultures remain negative up until the time of discharge. Urine culture did grow out Klebsiella which was sensitive to all antibiotics other than ampicillin. The day of discharge she still had mild temperature elevation of 101 degrees and mild elevation in white blood cell count. I did recommend 1 additional day of hospitalization but patient requested discharged home on oral antibiotic therapy. She will be given an additional 4 days of oral antibiotic therapy with cephalexin 500 mg every 8 hours. Activity will be as tolerated and she will resume her usual diet. Follow-up appointment will be scheduled with her primary care provider within 1 week. - Patient Instructions Diet: Heart Healthy Diet Activity: As Tolerated Other/Special Instructions: Please schedule follow-up appointment with primary care provider within 1 week. - Discharge Plan *PRESCRIPTION DRUG MONITORING PROGRAM REVIEWED*: Not Applicable *COPY OF PRESCRIPTION DRUG MONITORING REPORT IN PATIENT BILL: Not Applicable Prescriptions/Med Rec: Cephalexin [Keflex] 500 mg PO Q8H #12 capsule Home Medications: Home Meds Nitroglycerin [Nitrostat] 0.4 mg SL ASDIRECTED PRN 06/18/16 [History] Tumeric 538 mg PO DAILY 06/18/16 [History] Cholecalciferol (Vitamin D3) [Vitamin D3] 2,000 unit PO DAILY 01/26/20 [History] Clopidogrel Bisulfate [Clopidogrel] 75 mg PO DAILY 01/26/20 [History] atorvaSTATin [Lipitor] 40 mg PO BEDTIME 01/26/20 [History] Acetaminophen [Tylenol] 650 mg PO Q6H tablet 02/03/20 [Rx] HYDROmorphone [Dilaudid] 2 mg PO Q4H PRN #42 tablet 02/03/20 [Rx] Furosemide [Lasix] 20 mg PO DAILY 02/10/20 [History] Potassium Chloride [Klor-Con M20] 20 meq PO DAILY 02/10/20 [History] Cephalexin [Keflex] 500 mg PO Q8H #12 capsule 02/12/20 [Rx] Lactobacillus Rhamnosus GG [Culturelle] 1 cap PO BID cap 02/12/20 [Rx] Referrals: Aaron Sahu MD [Primary Care Provider] - 02/17/20 10:00 am (Your appointment will be a virtual appointment through your [employer] Account. If you need assistance please call [place] prior to appointment.) - Discharge Summary/Plan Comment DC Time >30 min.: No - Patient Data Vitals - Most Recent: Last Vital Signs Temp 98.4 F 02/12/20 08:57 Pulse 98 02/12/20 07:15 Resp 16 02/12/20 07:15 BP 109/62 02/12/20 07:15 Pulse Ox 91 L 02/12/20 07:15 Weight - Most Recent: 152 lb I&O - Last 24 hours: Intake & Output 02/11/20 02/12/20 02/12/20 22:59 06:59 14:59 Intake Total 120 240 240 Output Total 1450 750 Balance -1330 -510 240 Lab Results - Last 24 hrs: Laboratory Results - last 24 hr 02/12/20 02/12/20 Range/Units 04:39 04:39 WBC 14.3 H (4.5-11.0) K/uL RBC 4.04 (3.30-5.50) M/uL Hgb 11.9 L (12.0-15.0) g/dL Hct 37.0 (36.0-48.0) % MCV 92 (80-98) fL MCH 30 (27-31) pg MCHC 32 (32-36) % Plt Count 351 (150-400) K/uL Neut % (Auto) 80 H (36-66) % Lymph % (Auto) 8 L (24-44) % [place] % (Auto) 11 H (2-6) % Eos % (Auto) 1 L (2-4) % Baso % (Auto) 0 (0-1) % Sodium 137 L (140-148) mmol/L Potassium 3.8 (3.6-5.2) mmol/L Chloride 103 (100-108) mmol/L Carbon Dioxide 24 (21-32) mmol/L Anion Gap 13.8 (5.0-14.0) mmol/L BUN 7 (7-18) mg/dL Creatinine 0.7 (0.6-1.0) mg/dL Est Cr Clr Drug Dosing 62.26 mL/min Estimated GFR (MDRD) > 60 (>60) Glucose 109 H (74-106) mg/dL Calcium 8.3 L (8.5-10.1) mg/dL MIREYA Results - Last 24 hrs: Microbiology 02/10/20 19:05 Urine Culture - Final Urine, Clean Catch Klebsiella Pneumonia Ss Pneumo 02/10/20 17:50 Aerobic Blood Culture - Preliminary Blood - Venous NO GROWTH AFTER 1 DAY Anaerobic Blood Culture - Preliminary NO GROWTH AFTER 1 DAY 02/10/20 17:55 Aerobic Blood Culture - Preliminary Blood - Venous - Lab Draw NO GROWTH AFTER 1 DAY Anaerobic Blood Culture - Preliminary NO GROWTH AFTER 1 DAY 02/11/20 15:02 Clostridioides difficile (PCR) - Final Stool / Feces Med Orders - Current: Current Medications Acetaminophen (Tylenol) 650 mg PO Q6H [facility] Last Admin: 02/12/20 04:44 Dose: 650 mg Acetaminophen (Tylenol) 650 mg PO Q4H PRN PRN Reason: Pain (Mild 1-3)/fever Last Admin: 02/12/20 07:22 Dose: 650 mg Albuterol (Proventil Neb Soln) 2.5 mg NEB Q4H PRN PRN Reason: Shortness Of Breath/wheezing Albuterol/Ipratropium (Duoneb 3.0-0.5 Mg/3 Ml) 3 ml NEB QID PRN PRN Reason: Shortness Of Breath/wheezing Atorvastatin Calcium (Lipitor) 40 mg PO BEDTIME [facility] Last Admin: 02/11/20 21:04 Dose: 40 mg Cholecalciferol (Vitamin D3) 50 mcg PO DAILY [facility] Last Admin: 02/11/20 09:45 Dose: 50 mcg Clopidogrel Bisulfate (Plavix) 75 mg PO DAILY [facility] Last Admin: 02/11/20 08:31 Dose: 75 mg Enoxaparin Sodium (Lovenox) 40 mg SUBCUT DAILY [facility] Last Admin: 02/11/20 08:32 Dose: 40 mg Furosemide (Lasix) 20 mg PO DAILY [facility] Last Admin: 02/11/20 08:31 Dose: 20 mg Hydromorphone HCl (Dilaudid) 2 mg PO Q4H PRN PRN Reason: Pain Last Admin: 02/12/20 06:58 Dose: 2 mg Ceftriaxone Sodium 1 gm/ (Sodium Chloride) 50 mls @ 100 mls/hr IV Q24H [facility] Last Admin: 02/11/20 21:04 Dose: 100 mls/hr Lactobacillus Rhamnosus (Culturelle) 1 cap PO BID [facility] Last Admin: 02/11/20 21:04 Dose: 1 cap Nitroglycerin (Nitrostat) 0.4 mg SL ASDIRECTED PRN PRN Reason: Chest Pain Ondansetron HCl (Zofran Odt) 4 mg PO Q6H PRN PRN Reason: Nausea able to take PO Last Admin: 02/10/20 22:34 Dose: 4 mg Ondansetron HCl (Zofran) 4 mg IV Q4H PRN PRN Reason: Nausea/Vomiting Pantoprazole Sodium (Protonix) 40 mg PO BIDAC [facility] Last Admin: 02/12/20 07:12 Dose: 40 mg Potassium Chloride (Potassium Chloride Solution) 20 meq PO DAILY [facility] Discontinued Medications Acetaminophen (Tylenol) 650 mg PO Q4H PRN PRN Reason: Pain (Mild 1-3)/fever Hydromorphone HCl (Dilaudid) 1 mg IVPUSH ONETIME ONE Stop: 02/10/20 17:40 Last Admin: 02/10/20 17:59 Dose: 1 mg Lactated Ringer's (Ringers, Lactated) 1,000 mls @ 500 mls/hr IV BOLUS ONE Stop: 02/10/20 19:34 Last Admin: 02/10/20 18:00 Dose: 500 mls/hr Sodium Chloride (Normal Saline) 1,000 mls @ 125 mls/hr IV ASDIRECTED [facility] Last Admin: 02/11/20 05:08 Dose: 125 mls/hr Morphine Sulfate (Morphine) 2 mg IVPUSH ONETIME ONE Stop: 02/10/20 17:36 Last Admin: 02/10/20 18:47 Dose: Not Given Ondansetron HCl (Zofran) 4 mg IVPUSH ONETIME ONE Stop: 02/10/20 17:37 Last Admin: 02/10/20 17:59 Dose: 4 mg Pantoprazole Sodium (Protonix Iv) 40 mg IV Q12H [facility] Last Admin: 02/10/20 22:37 Dose: 40 mg Potassium Chloride (Klor-Con M20) 20 meq PO DAILY [facility] Last Admin: 04/17/20 08:31 Dose: 20 meq Sodium Chloride (Saline Flush) 10 ml FLUSH ASDIRECTED PRN PRN Reason: Keep Vein Open Last Admin: 02/10/20 18:00 Dose: 10 ml - Exam Quality Assessment: Reports: DVT Prophylaxis General: Reports: Alert, Oriented, Cooperative, Mild Distress Lungs: Reports: Clear to Auscultation, Normal Respiratory Effort Cardiovascular: Reports: Regular Rate, Regular Rhythm, No Murmurs GI/Abdominal Exam: Soft, Non-Tender, No Organomegaly, No Distention Extremities: Non-Tender, No Pedal Edema
[2020-02-12] MEDS: Furosemide 20 MG Tab PO SCH (10:18)
[2020-02-12] MEDS: Lactobacillus Rhamnosus GG (Probiotic) Cap PO SCH (10:18)
[2020-02-12] MEDS: Clopidogrel 75 MG Tab PO SCH (10:19)
[2020-02-12] MEDS: Cholecalciferol (Vitamin D3) 25 MCG Tab PO SCH (10:19)
[2020-02-12] MEDS: Enoxaparin 40 MG/0.4 ML Syringe SUBCUT SCH (10:19)
[2020-02-12 14:22] VITALS: BP 112/73; PULSE 96
== END 2020-02-12 17:40 | disposition home health service (06) | DRG 690 ==
LOC: JP.ED 16:42 → JP.MS 21:16
PROVIDERS: ADMIT Hospitalist; ATTEND Hospitalist
DX: N30.01 Acute cystitis with hematuria (principal); R53.1 Weakness; H54.7 Unspecified visual loss; B96.1 Klebsiella pneumoniae [K. pneumoniae] as the cause of diseases classified elsewhere; I25.10 Atherosclerotic heart disease of native coronary artery without angina pectoris; E78.00 Pure hypercholesterolemia, unspecified; G47.30 Sleep apnea, unspecified; K21.9 Gastro-esophageal reflux disease without esophagitis; K44.9 Diaphragmatic hernia without obstruction or gangrene; Z95.5 Presence of coronary angioplasty implant and graft; Z86.010 Personal history of colon polyps; M81.0 Age-related osteoporosis without current pathological fracture; Z91.040 Latex allergy status; Z90.710 Acquired absence of both cervix and uterus; Z88.2 Allergy status to sulfonamides; Z88.1 Allergy status to other antibiotic agents; Z88.6 Allergy status to analgesic agent; Z88.8 Allergy status to other drugs, medicaments and biological substances; Z79.899 Other long term (current) drug therapy; Z79.02 Long term (current) use of antithrombotics/antiplatelets; Z90.49 Acquired absence of other specified parts of digestive tract; Z98.890 Other specified postprocedural states; Z87.19 Personal history of other diseases of the digestive system
CPT/HCPCS: 36415; 71045 ×2; 74018 ×2; 80053; 81001; 83605; 83615; 83690; 83880; 84145; 84484; 85025; 86140; 87040 ×2; 87086; 87088; 87186; 93005; 96361; 96374; 96375; 99284; 99285; J1170; J2405; J7120; 80048; 87493; 93010; A9270-GY; C9113; J0696; J1650; J7030; J7050

== ENCOUNTER 2020-02-15 11:45 | Emergency (ER) | payer MEDICARE, BC ==
--- NOTE | 2020-02-15 12:36 | EDM.PDOC ---
ED HPI GENERAL MEDICAL PROBLEM - General Chief Complaint: Lower Extremity Injury/Pain Stated Complaint: LEG PAIN Time Seen by Provider: 02/15/20 12:15 Source of Information: Reports: Patient, Old Records, RN History Limitations: Reports: No Limitations - History of Present Illness INITIAL COMMENTS - FREE TEXT/NARRATIVE: 74 yo female was recently discharged from here after an admission for a hernia repair. She went home on cephalexin for an asymptomatic UTI that grew Klebsiella sensitive to all cephalosporins. In the night last night she developed an area of L medial/distal thigh redness and induration. This morning when home care came to her home she had a temp of 101F. She has no other complaints at this time. PHx of C.dif. Has diarrhea now since starting the cephalexin. 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 (8 hrs ago) Left Leg Pain Score (Numeric/FACES): 0 - Related Data Allergies Allergy/AdvReac Type Severity Reaction Status Date / Time Latex, Natural Rubber Allergy Rash Verified 02/15/20 12:17 niacin Allergy Cannot Verified 02/15/20 12:17 Remember Sulfa (Sulfonamide Allergy Difficulty Verified 02/15/20 12:17 Antibiotics) Breathing ceftriaxone [From Rocephin] AdvReac Diarrhea Verified 02/15/20 12:17 ciprofloxacin AdvReac Nausea Verified 02/15/20 12:17 meperidine HCl [From Demerol] AdvReac Nausea and Verified 02/15/20 12:17 Vomiting morphine AdvReac Nausea Verified 02/15/20 12:17 nitrofurantoin AdvReac Nausea Verified 02/15/20 12:17 [From Macrobid] nitrofurantoin AdvReac Nausea Verified 02/15/20 12:17 macrocrystalline [From Macrobid] tetracycline [Tetracycline] AdvReac Nausea Verified 02/15/20 12:17 Home Meds: Home Meds Nitroglycerin [Nitrostat] 0.4 mg SL ASDIRECTED PRN 06/18/16 [History] Tumeric 538 mg PO DAILY 06/18/16 [History] Cholecalciferol (Vitamin D3) [Vitamin D3] 2,000 unit PO DAILY 01/26/20 [History] Clopidogrel Bisulfate [Clopidogrel] 75 mg PO DAILY 01/26/20 [History] atorvaSTATin [Lipitor] 40 mg PO BEDTIME 01/26/20 [History] Acetaminophen [Tylenol] 650 mg PO Q6H tablet 02/03/20 [Rx] HYDROmorphone [Dilaudid] 2 mg PO Q4H PRN #42 tablet 02/03/20 [Rx] Furosemide [Lasix] 20 mg PO DAILY 02/10/20 [History] Potassium Chloride [Klor-Con M20] 20 meq PO DAILY 02/10/20 [History] Cephalexin [Keflex] 500 mg PO Q8H #12 capsule 02/12/20 [Rx] Lactobacillus Rhamnosus GG [Culturelle] 1 cap PO BID cap 02/12/20 [Rx] Past Medical History HEENT History: Reports: Impaired Vision Cardiovascular History: Reports: Angina, Arrhythmia, CAD, High Cholesterol, Stents, Other (See Below) Other Cardiovascular History: mitro valve prolaps Respiratory History: Reports: Sleep Apnea Gastrointestinal History: Reports: Colon Polyp, GERD, Hiatal Hernia Genitourinary History: Reports: None 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: Musculoskeletal History: Reports: Fracture Other Musculoskeletal History: right knee pain and swellling Neurological History: Reports: Concussion Psychiatric History: Reports: None Endocrine/Metabolic History: Reports: Osteoporosis Hematologic History: Reports: None Immunologic History: Reports: None Oncologic (Cancer) History: Reports: None Dermatologic History: Reports: None - Infectious Disease History Infectious Disease History: Reports: Chicken Pox, Influenza - Past Surgical History Head Surgeries/Procedures: Reports: None HEENT Surgical History: Reports: Other (See Below) Other HEENT Surgeries/Procedures: nasal surgery for sleep apnea Cardiovascular Surgical History: Reports: Coronary Artery Stent Respiratory Surgical History: Reports: None GI Surgical History: Reports: Appendectomy, Cholecystectomy, Colonoscopy, EGD, Hernia Repair/Other, Other (See Below) Other GI Surgeries/Procedures: abd. surgery for stomach on ride side of body Female Surgical History: Reports: Hysterectomy, Salpingo-Oophorectomy Endocrine Surgical History: Reports: None Neurological Surgical History: Reports: None Musculoskeletal Surgical History: Reports: None Dermatological Surgical History: Reports: None Social & Family History - Family History Cardiac: Reports: CAD - Tobacco Use Smoking Status *Q: Never Smoker - Caffeine Use Caffeine Use: Reports: Coffee - Recreational Drug Use Recreational Drug Use: No - Living Situation & Occupation Living situation: Reports: (lives with on [place]. Has 4 grown children.) Review of Systems - Review of Systems Review Of Systems: See Below Constitutional: Reports: No Symptoms Eyes: Reports: No Symptoms Ears: Reports: No Symptoms Nose: Reports: No Symptoms Mouth/Throat: Reports: No Symptoms Respiratory: Reports: No Symptoms Cardiovascular: Reports: No Symptoms GI/Abdominal: Reports: Abdominal Pain (only from her recent surgical incisions.) , Diarrhea (from her antibiotic) Genitourinary: Reports: No Symptoms (note reports never having sx's with her UTI 's) Musculoskeletal: Reports: No Symptoms Skin: Reports: Wound (surgical wound to abdomen) Neurological: Reports: No Symptoms Psychiatric: Reports: No Symptoms ED EXAM, GENERAL - Physical Exam Exam: See Below Exam Limited By: No Limitations General Appearance: Alert, WD/WN, No Apparent Distress Eye Exam: Bilateral Eye: Normal Inspection Ears: Normal External Exam, Normal Canal, Hearing Grossly Normal, Normal TMs Ear Exam: Bilateral Ear: Auricle Normal, Canal Normal, TM normal Nose: Normal Inspection, No Blood Throat/Mouth: Normal Inspection, Normal Oropharynx, Normal Voice, No Airway Compromise Head: Atraumatic, Normocephalic Respiratory/Chest: No Respiratory Distress, Lungs Clear, Normal Breath Sounds, No Accessory Muscle Use Cardiovascular: Regular Rate, Rhythm, No Edema GI/Abdominal: Normal Bowel Sounds, Soft, Non-Tender, No Distention, Other ( surgical wounds present) Back Exam: Normal Inspection, CVA Tenderness (L) (mild). No: CVA Tenderness (R) Extremities: Increased Warmth (same area of phlebitis L leg), Redness (area to the distal/medial L thigh with thrombophlebitis measuring about 4-5 cm in length. ). No: Pedal Edema Neurological: Alert, Oriented, CN II-XII Intact, Normal Cognition, No Motor/ Sensory Deficits Psychiatric: Normal Affect, Normal Mood Skin Exam: Warm, Dry, Intact, No Rash, Erythema (phlebitis L leg), Increased Warmth (same, left leg) Course - Vital Signs Last Recorded V/S: Last Vital Signs Temp 37.3 C 02/15/20 15:38 Pulse 106 H 02/15/20 15:38 Resp 16 02/15/20 15:38 BP 113/73 02/15/20 15:38 Pulse Ox 96 02/15/20 15:38 - Orders/Labs/Meds Orders: Active Orders 24 hr Category Date Time Status CDiff [CLOS DIFFICILE PCR W/REFLEX] [RM] Routine Lab 02/15/20 15:27 Ordered Labs: Laboratory Tests 02/15/20 02/15/20 Range/Units 12:28 13:42 WBC 10.3 (4.5-11.0) K/uL RBC 4.18 (3.30-5.50) M/uL Hgb 12.1 (12.0-15.0) g/dL Hct 38.1 (36.0-48.0) % MCV 91 (80-98) fL MCH 29 (27-31) pg MCHC 32 (32-36) % Plt Count 487 H (150-400) K/uL Urine Color Yellow (YELLOW) Urine Appearance Clear (CLEAR) Urine pH 5.0 (5.0-8.0) Ur Specific [place] 1.025 (1.008-1.030) Urine Protein Negative (NEGATIVE) mg/dL Urine Glucose (UA) Negative (NEGATIVE) mg/dL Urine Ketones Negative (NEGATIVE) mg/dL Urine Occult Blood Small H (NEGATIVE) Urine Nitrite Negative (NEGATIVE) Urine Bilirubin Negative (NEGATIVE) Urine Urobilinogen 0.2 (0.2-1.0) EU/dL Ur Leukocyte Esterase Negative (NEGATIVE) Urine RBC 0-5 (0-5) Urine WBC 0-5 (0-5) Ur Epithelial Cells Few Amorphous Sediment Not seen Urine Bacteria Not seen Urine Mucus Not seen Departure - Departure Time of Disposition: 16:40 Disposition: Home, Self-Care 01 Condition: Fair Clinical Impression: Thrombophlebitis leg, Clostridioides difficile infection - Discharge Information *PRESCRIPTION DRUG MONITORING PROGRAM REVIEWED*: No *COPY OF PRESCRIPTION DRUG MONITORING REPORT IN PATIENT BILL: No Referrals: PCP,None [Primary Care Provider] - Forms: ED Department Discharge Additional Instructions: Apply moist heat to the area on your leg that is red for 20 minutes at least 4 times/day. Take aspirin 2 every 6 hrs with food. Keep your leg elevated above your heart as much as possible. Stop your cephalexin. Start metronidazole 500 mg every 8 hrs. See your provider for recheck by Friday of this week, call for an appt. Sepsis Event Note - Evaluation Sepsis Screening Result: Possible Sepsis Risk - Focused Exam Vital Signs: Vital Signs Temp Pulse Resp BP Pulse Ox 02/15/20 15:38 37.3 C 106 H 16 113/73 96 02/15/20 11:51 36.9 C 101 H 16 130/78 96 Date Exam was Performed: 02/15/20 Time Exam was Performed: 16:28 - My Orders Last 24 Hours: My Active Orders 02/15/20 15:27 CDiff [CLOS DIFFICILE PCR W/REFLEX] [RM] Routine - Assessment/Plan Last 24 Hours: My Active Orders 02/15/20 15:27 CDiff [CLOS DIFFICILE PCR W/REFLEX] [RM] Routine
[2020-02-15 15:38] VITALS: BP 113/73; PULSE 106
[2020-02-15] MEDS ORDERED: metroNIDAZOLE 250 MG Tab PO ONE (16:28)
== END 2020-02-15 16:52 | disposition home or self-care (01) ==
LOC: JP.ED 11:45
DX: I80.3 Phlebitis and thrombophlebitis of lower extremities, unspecified (principal); B96.89 Other specified bacterial agents as the cause of diseases classified elsewhere; I25.10 Atherosclerotic heart disease of native coronary artery without angina pectoris; E78.00 Pure hypercholesterolemia, unspecified; K21.9 Gastro-esophageal reflux disease without esophagitis; Z91.040 Latex allergy status; Z88.2 Allergy status to sulfonamides; Z88.5 Allergy status to narcotic agent; Z88.1 Allergy status to other antibiotic agents; Z88.8 Allergy status to other drugs, medicaments and biological substances; Z79.899 Other long term (current) drug therapy; Z79.02 Long term (current) use of antithrombotics/antiplatelets
CPT/HCPCS: 36415; 81001; 85027; 87493; 99284; A9270; 99283

== ENCOUNTER 2020-07-01 17:17 | Emergency (ER) | payer MEDICARE, BC ==
[2020-07-01 17:33] VITALS: BP 105/67; PULSE 68
--- NOTE | 2020-07-01 19:00 | EDM.PDOC ---
ED HPI GENERAL MEDICAL PROBLEM - General Chief Complaint: Lower Extremity Injury/Pain Stated Complaint: LEFT TOE INJURY Time Seen by Provider: 07/01/20 18:56 Source of Information: Reports: Patient History Limitations: Reports: No Limitations - History of Present Illness INITIAL COMMENTS - FREE TEXT/NARRATIVE: pt caught her left 4th toe on a piece of furture She had immediate pain. She is now having alot of pain and swelling. Onset: Today, Sudden Duration: Hour(s): Location: Reports: Lower Extremity, Left Associated Symptoms: Reports: No Other Symptoms Left Toe-Long Pain Score (Numeric/FACES): 8 - Related Data Allergies Allergy/AdvReac Type Severity Reaction Status Date / Time Latex, Natural Rubber Allergy Rash Verified 07/01/20 17:37 niacin Allergy Cannot Verified 07/01/20 17:37 Remember Sulfa (Sulfonamide Allergy Difficulty Verified 07/01/20 17:37 Antibiotics) Breathing ceftriaxone [From Rocephin] AdvReac Diarrhea Verified 07/01/20 17:37 ciprofloxacin AdvReac Nausea Verified 07/01/20 17:37 meperidine HCl [From Demerol] AdvReac Nausea and Verified 07/01/20 17:37 Vomiting morphine AdvReac Nausea Verified 07/01/20 17:37 nitrofurantoin AdvReac Nausea Verified 07/01/20 17:37 [From Macrobid] nitrofurantoin AdvReac Nausea Verified 07/01/20 17:37 macrocrystalline [From Macrobid] tetracycline [Tetracycline] AdvReac Nausea Verified 07/01/20 17:37 Home Meds: Home Meds Nitroglycerin [Nitrostat] 0.4 mg SL ASDIRECTED PRN 06/18/16 [History] Tumeric 538 mg PO DAILY 06/18/16 [History] Cholecalciferol (Vitamin D3) [Vitamin D3] 2,000 unit PO DAILY 01/26/20 [History] Clopidogrel Bisulfate [Clopidogrel] 75 mg PO DAILY 01/26/20 [History] Acetaminophen [Tylenol] 650 mg PO Q6H tablet 02/03/20 [Rx] Potassium Chloride [Klor-Con M20] 20 meq PO DAILY 02/10/20 [History] Past Medical History HEENT History: Reports: Impaired Vision Cardiovascular History: Reports: Angina, Arrhythmia, CAD, High Cholesterol, Stents, Other (See Below) Other Cardiovascular History: mitro valve prolaps Respiratory History: Reports: Sleep Apnea Gastrointestinal History: Reports: Colon Polyp, GERD, Hiatal Hernia Genitourinary History: Reports: None 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: Musculoskeletal History: Reports: Fracture Other Musculoskeletal History: right knee pain and swellling Neurological History: Reports: Concussion Psychiatric History: Reports: None Endocrine/Metabolic History: Reports: Osteoporosis Hematologic History: Reports: None Immunologic History: Reports: None Oncologic (Cancer) History: Reports: None Dermatologic History: Reports: None - Infectious Disease History Infectious Disease History: Reports: Chicken Pox, Influenza - Past Surgical History Head Surgeries/Procedures: Reports: None HEENT Surgical History: Reports: Other (See Below) Other HEENT Surgeries/Procedures: nasal surgery for sleep apnea Cardiovascular Surgical History: Reports: Coronary Artery Stent Respiratory Surgical History: Reports: None GI Surgical History: Reports: Appendectomy, Cholecystectomy, Colonoscopy, EGD, Hernia Repair/Other, Other (See Below) Other GI Surgeries/Procedures: abd. surgery for stomach on ride side of body Female Surgical History: Reports: Hysterectomy, Salpingo-Oophorectomy Endocrine Surgical History: Reports: None Neurological Surgical History: Reports: None Musculoskeletal Surgical History: Reports: None Dermatological Surgical History: Reports: None Social & Family History - Family History Cardiac: Reports: CAD - Tobacco Use Smoking Status *Q: Never Smoker Second Hand Smoke Exposure: No - Caffeine Use Caffeine Use: Reports: Coffee - Recreational Drug Use Recreational Drug Use: No - Living Situation & Occupation Living situation: Reports: (lives with on large [place]. Has 4 grown children.) Review of Systems - Review of Systems Review Of Systems: See Below Constitutional: Reports: No Symptoms Eyes: Reports: No Symptoms Ears: Reports: No Symptoms Nose: Reports: No Symptoms Mouth/Throat: Reports: No Symptoms Respiratory: Reports: No Symptoms Cardiovascular: Reports: No Symptoms GI/Abdominal: Reports: No Symptoms Musculoskeletal: Reports: Other (pain and swelling of the 4th toe. ) Skin: Reports: No Symptoms ED EXAM, GENERAL - Physical Exam Exam: See Below Free Text/Narrative:: pt arrived with pain in the left great toe with swelling. Exam Limited By: No Limitations General Appearance: Alert, Anxious, Moderate Distress Ears: Normal TMs Nose: Normal Inspection Throat/Mouth: Normal Inspection Head: Atraumatic Extremities: Other ( 4th toe on the left appears deformed and swollen. ) Course - Vital Signs Last Recorded V/S: Last Vital Signs Temp 35.7 C L 07/01/20 17:40 Pulse 68 07/01/20 17:40 Resp 16 07/01/20 17:40 BP 105/67 07/01/20 17:40 Pulse Ox 98 07/01/20 17:40 - Re-Assessments/Exams Free Text/Narrative Re-Assessment/Exam: 07/01/20 18:59 the foot was cleaned well and the toe was buddied taped to the 3rd toe. She will see Dr Saez. Departure - Departure Time of Disposition: 19:22 Disposition: Home, Self-Care 01 Condition: Fair Clinical Impression: Fracture of fourth toe, left, closed - Discharge Information Instructions: Toe Fracture, [id number] Referrals: Aaron Sahu MD [Primary Care Provider] - Forms: ED Department Discharge Care Plan Goals: elevate foot, cool pack, crutches, appt with Dr Saez next week, tylenol and motrin for pain. Sepsis Event Note (ED) - Evaluation Sepsis Screening Result: No Definite Risk
--- NOTE | 2020-07-03 10:32 | CR ---
FOOT LEFT 3 views CLINICAL HISTORY:Injury FINDINGS:There is a fracture of the fourth proximal phalanx with lateral angulation. There is moderate deformity of the fifth MTP joint. There is moderate bunion formation and some hallux valgus. Impression: Fracture fourth proximal phalanx Bunions and moderate deformity at the first and fifth MTP joints
== END 2020-07-01 19:30 | disposition home or self-care (01) ==
LOC: JP.ED 17:17
DX: S92.512A Displaced fracture of proximal phalanx of left lesser toe(s), initial encounter for closed fracture (principal); I25.10 Atherosclerotic heart disease of native coronary artery without angina pectoris; Z95.5 Presence of coronary angioplasty implant and graft; Z91.040 Latex allergy status; Z88.2 Allergy status to sulfonamides; Z88.1 Allergy status to other antibiotic agents; Z88.5 Allergy status to narcotic agent; Z79.02 Long term (current) use of antithrombotics/antiplatelets; W20.8XXA Other cause of strike by thrown, projected or falling object, initial encounter
CPT/HCPCS: 73630-26-LT; 73630-LT; 99282; 99283-25

== ENCOUNTER 2021-04-12 13:07 | Emergency (ER) | payer MEDICARE, BC ==
--- NOTE | 2021-04-12 14:45 | EDM.PDOC ---
ED HPI GENERAL MEDICAL PROBLEM - General Chief Complaint: Abdominal Pain Stated Complaint: ABDOMINAL PAIN Time Seen by Provider: 04/12/21 14:25 Source of Information: Reports: Patient, Old Records, RN History Limitations: Reports: No Limitations - History of Present Illness INITIAL COMMENTS - FREE TEXT/NARRATIVE: 75 yo female presents with abdominal pain. She has a known ventral and inguinal hernia documented on CT. She was determined to have her elective surgery in [place], but now due to the long wait and increasing pain in the area of her hernia she decided today that she could come to the ER and get surgery sooner, if not today. There has not been any vomiting, but she alleges nausea earlier today. Pain came on abruptly today while walking. Pain is now gone for the past couple of hrs. Onset: Unknown/Unsure Duration: Waxing/Waning (trending toward worsening) Location: Reports: Abdomen Quality: Reports: Ache Severity: Severe (at its worst today.) Improves with: Reports: Other (usually laying down) Worsens with: Reports: Other (She thinks not taking her stool softeners) Context: Reports: Other (see HPI) Associated Symptoms: Reports: Nausea/Vomiting (no vomiting). 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: Other (see below) (none) Abdomen Pain Score (Numeric/FACES): 6 - Related Data Allergies Allergy/AdvReac Type Severity Reaction Status Date / Time Latex, Natural Rubber Allergy Rash Verified 04/12/21 14:07 niacin Allergy Cannot Verified 04/12/21 14:07 Remember Sulfa (Sulfonamide Allergy Difficulty Verified 04/12/21 14:07 Antibiotics) Breathing ceftriaxone [From Rocephin] AdvReac Diarrhea Verified 04/12/21 14:07 ciprofloxacin AdvReac Nausea Verified 04/12/21 14:07 meperidine HCl [From Demerol] AdvReac Nausea and Verified 04/12/21 14:07 Vomiting morphine AdvReac Nausea Verified 04/12/21 14:07 nitrofurantoin AdvReac Nausea Verified 04/12/21 14:07 [From Macrobid] nitrofurantoin AdvReac Nausea Verified 04/12/21 14:07 macrocrystalline [From Macrobid] tetracycline [Tetracycline] AdvReac Nausea Verified 04/12/21 14:07 Home Meds: Home Meds Nitroglycerin [Nitrostat] 0.4 mg SL ASDIRECTED PRN 06/18/16 [History] Cholecalciferol (Vitamin D3) [Vitamin D3] 2,000 unit PO DAILY 01/26/20 [History] Clopidogrel Bisulfate [Clopidogrel] 75 mg PO DAILY 01/26/20 [History] Acetaminophen [Tylenol] 650 mg PO Q6H tablet 02/03/20 [Rx] Past Medical History HEENT History: Reports: Impaired Vision Cardiovascular History: Reports: Angina, Arrhythmia, CAD, High Cholesterol, Stents, Other (See Below) Other Cardiovascular History: mitro valve prolaps Respiratory History: Reports: Sleep Apnea Gastrointestinal History: Reports: Colon Polyp, GERD, Hiatal Hernia Genitourinary History: Reports: None 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 left 4th toe FX Neurological History: Reports: Concussion Psychiatric History: Reports: None Endocrine/Metabolic History: Reports: Osteoporosis Hematologic History: Reports: None Immunologic History: Reports: None Oncologic (Cancer) History: Reports: None Dermatologic History: Reports: None - Infectious Disease History Infectious Disease History: Reports: Chicken Pox, Influenza, Other (See Below) Other Infectious Disease History: covid vacc 2020 - Past Surgical History Head Surgeries/Procedures: Reports: None HEENT Surgical History: Reports: Other (See Below) Other HEENT Surgeries/Procedures: nasal surgery for sleep apnea Cardiovascular Surgical History: Reports: Coronary Artery Stent Respiratory Surgical History: Reports: None GI Surgical History: Reports: Appendectomy, Cholecystectomy, Colonoscopy, EGD, Hernia Repair/Other, Other (See Below) Other GI Surgeries/Procedures: abd. surgery for stomach on ride side of body Female Surgical History: Reports: Hysterectomy, Salpingo-Oophorectomy Endocrine Surgical History: Reports: None Neurological Surgical History: Reports: None Musculoskeletal Surgical History: Reports: None Dermatological Surgical History: Reports: None Social & Family History - Family History Cardiac: Reports: CAD - Tobacco Use Tobacco Use Status *Q: Never Tobacco User - Caffeine Use Caffeine Use: Reports: Coffee - Recreational Drug Use Recreational Drug Use: No - Living Situation & Occupation Living situation: Reports: (lives with on large farm [place]. Has 4 grown children.) ED ROS GENERAL - Review of Systems Review Of Systems: See Below Constitutional: Reports: No Symptoms HEENT: Reports: No Symptoms Respiratory: Reports: No Symptoms Cardiovascular: Reports: No Symptoms GI/Abdominal: Reports: Abdominal Pain, Nausea. Denies: Black Stool, Bloody Stool, Constipation, Diarrhea, Distension, Flatus, Hematemesis, Hematochezia, Melena, Vomiting : Reports: No Symptoms Musculoskeletal: Reports: No Symptoms Skin: Reports: No Symptoms Neurological: Reports: No Symptoms Psychiatric: Reports: No Symptoms ED EXAM, GI/ABD - Physical Exam Exam: See Below Exam Limited By: No Limitations General Appearance: Alert, WD/WN, No Apparent Distress Eyes: Bilateral: Normal Appearance Ears: Normal External Exam, Normal Canal, Hearing Grossly Normal Nose: Normal Inspection, No Blood Throat/Mouth: Normal Inspection, Normal Lips, Normal Oropharynx, Normal Voice, No Airway Compromise Head: Atraumatic, Normocephalic Neck: Normal Inspection Respiratory/Chest: No Respiratory Distress, Lungs Clear, Normal Breath Sounds, No Accessory Muscle Use Cardiovascular: Regular Rate, Rhythm, No Edema GI/Abdominal Exam: Normal Bowel Sounds, Soft, Non-Tender, No Distention, Hernia, Other (not impressive R inguinal hernia noted when standing. ) Back Exam: Normal Inspection. No: CVA Tenderness (R), CVA Tenderness (L) Extremities: Normal Inspection, Normal Range of Motion, Non-Tender, No Pedal Edema Neurological: Alert, Oriented, CN II-XII Intact, Normal Cognition, No Motor/Sensory Deficits Psychiatric: Normal Affect, Normal Mood Skin Exam: Warm, Dry, Intact, Normal Color, No Rash Course - Vital Signs Last Recorded V/S: Last Vital Signs Temp 36.0 C L 04/12/21 14:08 Pulse 68 04/12/21 14:08 Resp 15 04/12/21 14:08 BP 134/80 04/12/21 14:08 Pulse Ox 99 04/12/21 14:08 - Orders/Labs/Meds Orders: Active Orders 24 hr Category Date Time Status Abdomen 2V AP Flat Upright [CR] Stat Exams 04/12/21 14:37 Taken - Radiology Interpretation Free Text/Narrative:: Flat/upright abd X-rays-no air fluid levels or bowel dilatation. Departure - Departure Time of Disposition: 15:40 Disposition: Home, Self-Care 01 Condition: Fair Clinical Impression: Right inguinal hernia - Discharge Information *PRESCRIPTION DRUG MONITORING PROGRAM REVIEWED*: Not Applicable *COPY OF PRESCRIPTION DRUG MONITORING REPORT IN PATIENT BILL: Not Applicable Instructions: Inguinal Hernia, Adult, [id number] Referrals: Aaron Sahu MD [Primary Care Provider] - Forms: ED Department Discharge Additional Instructions: High fiber diet, lots of fluids, and stool softeners. Return for recurrent vomiting or abdominal distention. F/U with Dr. Lambert April 25 at 0845h. Cancel if not able to make it. Acetaminophen for pain relief as needed. Sepsis Event Note (ED) - Evaluation Sepsis Screening Result: No Definite Risk - Focused Exam Vital Signs: Vital Signs Temp Pulse Resp BP Pulse Ox 04/12/21 14:08 36.0 C L 68 15 134/80 99 - My Orders Last 24 Hours: My Active Orders 04/12/21 14:37 Abdomen 2V AP Flat Upright [CR] Stat - Assessment/Plan Last 24 Hours: My Active Orders 04/12/21 14:37 Abdomen 2V AP Flat Upright [CR] Stat
--- NOTE | 2021-04-12 15:32 | CR ---
Abdomen 2V AP Flat Upright CLINICAL HISTORY: History of ventral hernia, increased pain FINDINGS: Patient has had previous ventral hernia repair. There is gas and feces throughout the colon. Small intestinal gas pattern is nonacute. No free air is identified. IMPRESSION: Previous abdominal surgery Nonacute intestinal gas pattern
[2021-04-12 15:37] VITALS: BP 118/70; PULSE 70
== END 2021-04-12 16:05 | disposition home or self-care (01) ==
LOC: JP.ED 13:07
DX: K40.90 Unilateral inguinal hernia, without obstruction or gangrene, not specified as recurrent (principal); I25.10 Atherosclerotic heart disease of native coronary artery without angina pectoris; E78.00 Pure hypercholesterolemia, unspecified; Z95.5 Presence of coronary angioplasty implant and graft; Z79.02 Long term (current) use of antithrombotics/antiplatelets; Z79.899 Other long term (current) drug therapy; Z88.1 Allergy status to other antibiotic agents; Z91.040 Latex allergy status; Z88.6 Allergy status to analgesic agent; Z88.2 Allergy status to sulfonamides; Z90.49 Acquired absence of other specified parts of digestive tract
CPT/HCPCS: 74019; 74019-26; 99282; 99284

== ENCOUNTER 2021-09-18 08:21 | Day surgery (SDC) | payer MEDICARE, BC ==
[2021-09-18] MEDS ORDERED: Dextrose 5%-Lactated Ringers 1,000 ML IV SCH (08:45)
[2021-09-18] MEDS ORDERED: Levofloxacin/Dextrose 5%-Water 500 MG in Premix Bag 1 BAG IV ONE (09:10)
[2021-09-18] MEDS ORDERED: fentaNYL 100 MCG/2 ML SDV ONE (09:11)
[2021-09-18] MEDS ORDERED: Propofol 200 MG/20 ML SDV ONE (09:11)
[2021-09-18] MEDS ORDERED: Midazolam 1 MG/ML 2 ML SDV ONE (09:11)
[2021-09-18 12:16] VITALS: BP 113/67; PULSE 60
--- NOTE | 2021-10-02 12:21 | OR ---
DATE OF PROCEDURE: 09/18/2021 SURGEON: John Lambert MD PREOPERATIVE DIAGNOSIS: Lower abdominal pain and change in bowel habits. POSTOPERATIVE DIAGNOSES: 1. Lower abdominal pain and change in bowel habits. 2. Single 1 cm polyp in the distal sigmoid colon (15 cm from dentate line). OPERATIVE PROCEDURE: Flexible colonoscopy with polypectomy by snare technique. ANESTHESIA: IV sedation. INDICATIONS FOR PROCEDURE: A 75-year-old female presenting with some ongoing lower abdominal pain and change in bowel habits. Plan is to proceed with flexible colonoscopy with biopsies and/or polypectomy for diagnostic purposes. Potential risks including bleeding and perforation were discussed, and the patient wishes to proceed. DETAILS OF PROCEDURE: The patient was taken to the operating room, placed in a left lateral decubitus position. IV sedation was administered after which the initial digital rectal exam was performed and was unremarkable. Colonoscope was then passed into the rectum with retroflexion revealing uncomplicated hemorrhoidal columns. The scope was eventually passed to the level of the cecum. There were no areas of diverticular disease or colitis. The prep was quite good. The patient did have a 1 cm polyp located in the distal sigmoid colon, roughly 15 cm above the dentate line. This was removed by means of cautery snare technique with good hemostasis noted and the specimen sent for pathologic review. At that point, no additional pathology was seen and the procedure was then concluded. We will call the patient regarding the pathology report. Otherwise, she will be following up with Dr. Sahu in 2 to 3 weeks. The findings on today's colonoscopy certainly by no means explain the patient's lower abdominal pain and change in bowel habits, so additional evaluation and workup will be warranted. John Lambert MD /[id number]
== END 2021-09-18 12:35 | disposition home or self-care (01) ==
LOC: JP.SDS 08:21
PROVIDERS: ATTEND Surgery
DX: D12.5 Benign neoplasm of sigmoid colon (principal); K64.9 Unspecified hemorrhoids; K21.9 Gastro-esophageal reflux disease without esophagitis; I25.10 Atherosclerotic heart disease of native coronary artery without angina pectoris
CPT/HCPCS: 45385; 88305; J1956; J2250; J2704; J3010; J7121

== ENCOUNTER 2023-10-19 12:11 | Emergency (ER) | payer MEDICARE, BC ==
[2023-10-19 12:28] VITALS: BP 102/55; PULSE 74
[2023-10-19 12:36] LABS: APPEARANCE,URINE CLOUDY (CLEAR); BILIRUBIN,URINE NEGATIVE (NEGATIVE); COLOR,URINE YELLOW (YELLOW); GLUCOSE,URINE NEGATIVE (NEGATIVE); KETONES,URINE NEGATIVE (NEGATIVE); LEUKOCYTE ESTERASE,URINE MODERATE (NEGATIVE); NITRITE,URINE POSITIVE (NEGATIVE); OCCULT BLOOD,URINE MODERATE (NEGATIVE); PH,URINE 5.5 (5.0-8.0); PROTEIN,URINE >=300 mg/dL (NEGATIVE); UROBILINOGEN,URINE 0.2 EU/dL (0.2-1.0)
[2023-10-19 12:38] LABS: BACTERIA,URINE MANY; EPITHELIAL CELLS,URINE FEW; MUCUS,URINE MANY; RBC,URINE 30-40 (0-5); WBC,URINE 75-100 (0-5)
[2023-10-19 12:39] LABS: AMORPHOUS SEDIMENT,URINE NOT SEEN
== END 2023-10-19 13:05 | disposition home or self-care (01) ==
LOC: JP.ED 12:11
DX: N39.0 Urinary tract infection, site not specified (principal); I25.10 Atherosclerotic heart disease of native coronary artery without angina pectoris; I25.2 Old myocardial infarction; Z95.5 Presence of coronary angioplasty implant and graft; Z90.49 Acquired absence of other specified parts of digestive tract; Z88.1 Allergy status to other antibiotic agents; Z88.2 Allergy status to sulfonamides; Z88.5 Allergy status to narcotic agent; Z88.8 Allergy status to other drugs, medicaments and biological substances; Z91.040 Latex allergy status
CPT/HCPCS: 81001; 99283

== ENCOUNTER 2023-11-20 15:31 | Emergency (ER) | payer OTHER, MEDICARE, BC ==
[2023-11-20 18:44] VITALS: BP 101/53; PULSE 78
== END 2023-11-20 18:56 | disposition home or self-care (01) ==
LOC: JP.ED 15:31
DX: S50.02XA Contusion of left elbow, initial encounter (principal); I25.10 Atherosclerotic heart disease of native coronary artery without angina pectoris; Z95.5 Presence of coronary angioplasty implant and graft; Z90.710 Acquired absence of both cervix and uterus; Z79.899 Other long term (current) drug therapy; Z79.02 Long term (current) use of antithrombotics/antiplatelets; Z88.1 Allergy status to other antibiotic agents; Z88.5 Allergy status to narcotic agent; Z88.8 Allergy status to other drugs, medicaments and biological substances; Z88.2 Allergy status to sulfonamides; Z91.048 Other nonmedicinal substance allergy status; Z91.040 Latex allergy status; V49.59XA Passenger injured in collision with other motor vehicles in traffic accident, initial encounter; Y92.410 Unspecified street and highway as the place of occurrence of the external cause
CPT/HCPCS: 73070-26-LT; 73070-LT; 73110-26-LT; 73110-LT; 99283; 99284

== ENCOUNTER 2024-04-17 12:56 | Emergency (ER) | payer MEDICARE, BC ==
[2024-04-17 13:20] VITALS: BP 131/64; PULSE 73
[2024-04-17 13:49] LABS: APPEARANCE,URINE TURBID (CLEAR); BILIRUBIN,URINE NEGATIVE (NEGATIVE); COLOR,URINE YELLOW (YELLOW); GLUCOSE,URINE NEGATIVE (NEGATIVE); KETONES,URINE NEGATIVE (NEGATIVE); LEUKOCYTE ESTERASE,URINE LARGE (NEGATIVE); NITRITE,URINE NEGATIVE (NEGATIVE); OCCULT BLOOD,URINE MODERATE (NEGATIVE); PH,URINE 5.5 (5.0-8.0); PROTEIN,URINE 30 mg/dL (NEGATIVE); UROBILINOGEN,URINE 0.2 EU/dL (0.2-1.0)
[2024-04-17 13:54] LABS: AMORPHOUS SEDIMENT,URINE FEW; BACTERIA,URINE MODERATE; EPITHELIAL CELLS,URINE FEW; MUCUS,URINE NOT SEEN; RBC,URINE 20-30 (0-5); WBC,URINE 75-100 (0-5)
== END 2024-04-17 14:10 | disposition home or self-care (01) ==
LOC: JP.ED 12:56
DX: N30.01 Acute cystitis with hematuria (principal); E78.00 Pure hypercholesterolemia, unspecified; I25.10 Atherosclerotic heart disease of native coronary artery without angina pectoris; K21.9 Gastro-esophageal reflux disease without esophagitis; Z91.040 Latex allergy status; Z88.1 Allergy status to other antibiotic agents; Z88.2 Allergy status to sulfonamides; Z88.8 Allergy status to other drugs, medicaments and biological substances; Z88.5 Allergy status to narcotic agent; Z79.899 Other long term (current) drug therapy; Z95.5 Presence of coronary angioplasty implant and graft; Z90.710 Acquired absence of both cervix and uterus; Z90.49 Acquired absence of other specified parts of digestive tract
CPT/HCPCS: 81001; 87086; 87088; 87186; 99283; 99284

== ENCOUNTER 2024-11-17 07:21 | Day surgery (SDC) | payer MEDICARE, BC ==
[~2024-11-17 07:21] MED LIST changes: -Acetaminophen 325 MG Tab PO ONE; +Bupivacaine 0.5% 30 ML SDV ONE; -Dexamethasone 4 MG/ML SDV ONE; -Glycopyrrolate 0.2 MG/ML 5 ML MDV ONE; -Neostigmine Methylsulfate 1 MG/ML 5 ML Syringe ONE; -Ondansetron 4 MG/2 ML SDV ONE; -Propofol 200 MG/20 ML SDV ONE; -Rocuronium 50 MG/5 ML Vial ONE; -Succinylcholine 200 MG/10 ML MDV ONE; -fentaNYL 250 MCG/5 ML SDV ONE
[2024-11-17] MEDS ORDERED: Propofol 200 MG/20 ML SDV ONE (07:38)
[2024-11-17] MEDS ORDERED: fentaNYL 100 MCG/2 ML SDV ONE (07:38)
[2024-11-17] MEDS ORDERED: Midazolam 1 MG/ML 2 ML SDV ONE (07:39)
[2024-11-17] MEDS ORDERED: Bupivacaine 0.5% 30 ML SDV ONE ×2 (07:39→07:42)
[2024-11-17] MEDS ORDERED: Dexamethasone 4 MG/ML SDV ONE (07:42)
[2024-11-17] MEDS ORDERED: Ondansetron 4 MG/2 ML SDV ONE (07:42)
[2024-11-17 07:48] LABS: HEMATOCRIT 38.1 % (34.3-46.0); HEMOGLOBIN 12.7 g/dL (11.2-15.5); MEAN CORPUSCULAR HGB CONC 33.3 g/dL (31.6-35.5); MEAN CORPUSCULAR VOLUME 92.9 fL (81.4-99.0); RED BLOOD CELL COUNT 4.1 M/uL (3.77-5.24); WHITE BLOOD CELL COUNT,WBC 6.7 K/uL (3.2-11.0)
[2024-11-17 08:05] LABS: ALANINE AMINOTRANSFERASE,ALT 25 U/L (12-78); ALBUMIN 3.5 g/dL (3.4-5.0); ALKALINE PHOSPHATASE 124 U/L (46-116); ANION GAP 9.4 mmol/L (5.0-14.0); ASPARTATE AMNIOTRANSFERASE,AST 33 U/L (15-37); BILIRUBIN TOTAL 0.5 mg/dL (0.2-1.0); BLOOD UREA NITROGEN,BUN 14 mg/dL (7-18); CALCIUM 8.5 mg/dL (8.5-10.1); CARBON DIOXIDE,CO2 28 mmol/L (21-32); CHLORIDE,CL 105 mmol/L (100-108); EST CRCL DRUG DOSING (CG) 40.68 mL/min; ESTIMATED GFR 58 mL/min (>60); GLUCOSE RANDOM 80 mg/dL (74-106); POTASSIUM,K 3.9 mmol/L (3.6-5.2); PROTEIN TOTAL,TP 6.9 g/dL (6.4-8.2); SODIUM,NA 142 mmol/L (140-148)
[2024-11-17] MEDS: Nozin Nasal Sanitizer NASBOTH ONE (08:11)
[2024-11-17] MEDS: Lactated Ringers 1,000 ML IV SCH (08:32)
[2024-11-17] MEDS: Clindamycin in 0.9 % Sod Chlor 900 MG in Premix Bag 1 BAG IV ONE (10:55)
[2024-11-17 13:42] VITALS: BP 134/73; PULSE 63
== END 2024-11-17 14:22 | disposition home or self-care (01) ==
LOC: JP.SDS 07:21
PROVIDERS: ATTEND Specialist
DX: M19.011 Primary osteoarthritis, right shoulder (principal); M75.41 Impingement syndrome of right shoulder; K21.9 Gastro-esophageal reflux disease without esophagitis; I25.10 Atherosclerotic heart disease of native coronary artery without angina pectoris; E78.00 Pure hypercholesterolemia, unspecified
CPT/HCPCS: 01630; 29822; 36415; 80053; 85027; A9270; C1713; J0665; J0737; J1100; J2250; J2405; J2704; J3010; J7120

== ENCOUNTER 2025-08-13 08:30 | Emergency (ER) | payer MEDICARE, BC ==
[2025-08-13] MEDS ORDERED: Sodium Chloride 0.9% 10 ML Syringe FLUSH PRN (09:14)
[2025-08-13 09:53] LABS: BASOPHILS ABSOLUTE AUTO 0.04 K/uL (0.00-0.10); BASOPHILS PERCENT AUTO 0.6 % (0.1-1.3); EOSINOPHILS ABSOLUTE AUTO 0.24 K/uL (0.00-0.40); EOSINOPHILS PERCENT AUTO 3.5 % (0.0-5.4); IMMATURE GRAN ABSOLUTE AUTO 0.02 K/uL (0.00-0.23); IMMATURE GRAN PERCENT AUTO 0.3 % (0.0-0.7); LYMPHOCYTES ABSOLUTE AUTO 1.70 K/uL (0.8-3.3); LYMPHOCYTES PERCENT AUTO 25.0 % (11.4-47.7); MONOCYTES ABSOLUTE AUTO 0.77 K/uL (0.20-0.90); MONOCYTES PERCENT AUTO 11.3 % (3.3-12.6); NEUTROPHILS ABSOLUTE AUTO 4.02 K/uL (1.0-7.6); NEUTROPHILS PERCENT AUTO 59.3 % (40.0-78.1); PLATELET COUNT,PLT 192 K/uL (130-375); RED BLOOD CELL COUNT 4.31 M/uL (3.77-5.24); WHITE BLOOD CELL COUNT,WBC 6.8 K/uL (3.2-11.0)
[2025-08-13 10:07] LABS: BLOOD UREA NITROGEN,BUN 16 mg/dL (7-18); CARBON DIOXIDE,CO2 25 mmol/L (21-32); CHLORIDE,CL 107 mmol/L (100-108); CREATININE 0.8 mg/dL (0.6-1.0); ESTIMATED GFR 75 mL/min (>60); GLUCOSE RANDOM 92 mg/dL (74-106); POTASSIUM,K 3.9 mmol/L (3.6-5.2); SODIUM,NA 140 mmol/L (140-148)
[2025-08-13 12:39] VITALS: BP 123/55; PULSE 60
== END 2025-08-13 12:54 | disposition home or self-care (01) ==
LOC: JP.ED 08:30
DX: S52.125A Nondisplaced fracture of head of left radius, initial encounter for closed fracture (principal); S52.135A Nondisplaced fracture of neck of left radius, initial encounter for closed fracture; I25.10 Atherosclerotic heart disease of native coronary artery without angina pectoris; E78.00 Pure hypercholesterolemia, unspecified; Z88.1 Allergy status to other antibiotic agents; Z88.2 Allergy status to sulfonamides; Z88.8 Allergy status to other drugs, medicaments and biological substances; Z91.040 Latex allergy status; Z79.899 Other long term (current) drug therapy; Z90.49 Acquired absence of other specified parts of digestive tract; Z90.710 Acquired absence of both cervix and uterus; W19.XXXA Unspecified fall, initial encounter
CPT/HCPCS: 29105; 36415; 70450; 70486; 71260; 73080-LT; 73110-26-LT; 73110-LT; 80048; 85025; 99284-25